=== PATIENT | male | born 1995 | race Caucasian/White ===

== ENCOUNTER 2017-01-06 03:42 | Inpatient (IN) | payer OTHER ==
[2017-01-06] VITALS (19 sets, daily range): BP systolic 97–127; BP diastolic 43–66
[~2017-01-06] VITALS: Ht 185.4 cm; Wt 77.3 kg
[~2017-01-06 03:42] MED LIST: ALBU0.63 IH; AZIT500T PO; DESM0.2T PO; DIPH25CA79 PO; DIPH28.33 TP; INSU100C SQ; INSU100V; LEVO500T80 PO; RT-ALBUINH IH; SERT50TA PO
[2017-01-06] MEDS ORDERED: NS IV 1000 ML 1,000 ML IV ONE ×2 (04:02→04:57)
--- NOTE | 2017-01-06 04:10 | ED General ---
General Chief Complaint: Abdominal/GI Problems Stated Complaint: VOMITING FLU LIKE SYS POSS HIGH BS Nursing Triage Note: pt ambulated to room. pt complains of vomiting since yesterday morning. pt complains of generalized pain. nausea diarrhea. Source of Information: Patient Exam Limitations: No Limitations History of Present Illness Time Seen by Provider: 03:54 Initial Comments Here with report of nausea, vomiting and diarrhea suggested a morning as well as body aches. Patient is a known diabetic and states his blood sugars have been over 400. He believes that there is some problem with his insulin pump system. Currently at a basal rate of 1.1 units per hour. Denies fever but does have chills. He has been tolerating a little bit of Sprite 0 but not much else. Does have history of DKA. Timing/Duration: 1-2 Days Severity: Moderate Associated Systoms: No Chest Pain, No Cough, Fever/Chills, Nausea/Vomiting, No Shortness of Air, No Weakness Allergies and Home Medications Allergies Coded Allergies: No Known Drug Allergies (Unverified , 03/30/11) Home Medications Albuterol Sulfate 6.7 Gm Hfa.aer.ad, 1 PUFF IH BID, #1 NEEDED FOR COUGH Prescribed by: QUANG WOLF on 03/22/16 1058 Azithromycin 500 Mg Tablet, 250 MG PO DAILY, #3 Prescribed by: QUANG WOLF on 03/22/16 1100 Insulin Lispro 100 Unit/1 Ml Vial, PER INSULIN PUMP, (Reported) LAST FILLED 11/17/15 #70 ML FOR 90 DAYS SUPPLY Levofloxacin 500 Mg Tablet, 500 MG PO DAILY, #5 Prescribed by: TERRANCE DILLON on 03/22/16 0848 Constitutional: see HPI, chills, No fever EENTM: no symptoms reported Respiratory: no symptoms reported Cardiovascular: no symptoms reported Gastrointestinal: No abdominal pain, diarrhea, nausea, vomiting Genitourinary: No dysuria, No pain Musculoskeletal: see HPI, joint pain, muscle pain Skin: no symptoms reported Psychiatric/Neurological: No Symptoms Reported All Other Systems Reviewed Negative Unless Noted: Yes Past Iqsdqfi-Lzupgb-Xafawt Hx Patient Social History Alcohol Use: Rarely Uses Recreational Drug Use: Yes Drug of Choice: pot Smoking Status: Current Everyday Smoker 2nd Hand Smoke Exposure: Yes Recent Foreign Travel: No Contact w/Someone Who Travel: No Recent Infectious Disease Expo: No Recent Hopitalizations: Yes (December) Ebola Symptoms: Denies Symptoms Listed Immunizations Up To Date Tetanus Booster (TDap): Unknown PED Vaccines UTD: No Seasonal Allergies Seasonal Allergies: Yes Surgeries HX Surgeries: Yes (urethral stretch) Respiratory Hx Respiratory Disorders: No Cardiovascular Hx Cardiac Disorders: No Neurological Hx Neurological Disorders: No Reproductive System Hx Reproductive Disorders: No Sexually Transmitted Disease: No Genitourinary Hx Genitourinary Disorders: Yes ("BEDWETTER") Gastrointestinal Hx Gastrointestinal Disorders: No Musculoskeletal Hx Musculoskeletal Disorders: No Endocrine Hx Endocrine Disorders: Yes Endocrine Disorders: Diabetes, Insulin dep HEENT HX ENT Disorders: No Cancer Hx Cancer: No Psychosocial Hx Psychiatric Problems: Yes Behavioral Health Disorders: Anxiety, Depression Integumentary HX Skin/Integumentary Disorder: No Blood Transfusions Hx Blood Disorders: No Adverse Reaction to a Blood Tr: No Reviewed Nursing Assessment Reviewed/Agree w Nursing PMH: Yes Family Medical History Significant Family History: No Pertinent Family Hx Family Medial History: Patient reports no known family medical history. Physical Exam Vital Signs Vital Sign - Last 12Hours 01/06/17 03:53 Temp 98.3 Pulse 107 Resp 20 B/P (MAP) 139/68 Pulse Ox 100 O2 Delivery Room Air Capillary Refill : General Appearance: No Apparent Distress, WD/WN HEENT: PERRL/EOMI, Pharynx Normal Neck: Non Tender, Supple Respiratory: Lungs Clear, Normal Breath Sounds Cardiovascular: Regular Rate, Rhythm, No Murmur Gastrointestinal: Non Tender, Soft Back: Normal Inspection, No CVA Tenderness, No Vertebral Tenderness Extremity: Non Tender, No Calf Tenderness Neurologic/Psychiatric: Alert, Oriented x3 Skin: Normal Color, Warm/Dry Progress/Results/Core Measures Results/Orders Lab Results Laboratory Tests Test 01/06/17 04:12 01/06/17 04:14 Range/Units White Blood Count 39.5 *H 4.3-11.0 10^3/uL Red Blood Count 5.24 4.35-5.85 10^6/uL Hemoglobin 16.3 13.3-17.7 G/DL Hematocrit 47 40-54 % Mean Corpuscular Volume 89 80-99 FL Mean Corpuscular Hemoglobin 31 25-34 PG Mean Corpuscular Hemoglobin Concent 35 32-36 G/DL Red Cell Distribution Width 12.7 10.0-14.5 % Platelet Count 282 130-400 10^3/uL Mean Platelet Volume 11.3 H 7.4-10.4 FL Neutrophils (%) (Auto) 87 H 42-75 % Lymphocytes (%) (Auto) 7 L 12-44 % Monocytes (%) (Auto) 7 0-12 % Eosinophils (%) (Auto) 0 0-10 % Basophils (%) (Auto) 0 0-10 % Neutrophils # (Auto) 34.2 H 1.8-7.8 X 10^3 Lymphocytes # (Auto) 2.6 1.0-4.0 X 10^3 Monocytes # (Auto) 2.6 H 0.0-1.0 X 10^3 Eosinophils # (Auto) 0.0 0.0-0.3 10^3/uL Basophils # (Auto) 0.1 0.0-0.1 10^3/uL Neutrophils % (Manual) 80 % Lymphocytes % (Manual) 3 % Monocytes % (Manual) 3 % Band Neutrophils 14 % Blood Morphology Comment NORMAL Sodium Level 132 L 135-145 MMOL/L Potassium Level 4.9 3.6-5.0 MMOL/L Chloride Level 94 L 98-107 MMOL/L Carbon Dioxide Level 6 *L 21-32 MMOL/L Anion Gap 32 H 5-14 MMOL/L Blood Urea Nitrogen 23 H 7-18 MG/DL Creatinine 1.68 H 0.60-1.30 MG/DL Estimat Glomerular Filtration Rate 53 BUN/Creatinine Ratio 14 Glucose Level 660 *H 70-105 MG/DL Calcium Level 9.5 8.5-10.1 MG/DL Phosphorus Level 8.0 H 2.3-4.7 MG/DL Magnesium Level 2.0 1.8-2.4 MG/DL Total Bilirubin 0.7 0.1-1.0 MG/DL Aspartate Amino Transf (AST/SGOT) 28 5-34 U/L Alanine Aminotransferase (ALT/SGPT) 31 0-55 U/L Alkaline Phosphatase 110 40-136 U/L Total Protein 8.3 H 6.4-8.2 GM/DL Albumin 4.8 H 3.2-4.5 GM/DL Glucometer 559 *H 70-110 MG/DL My Orders Orders - GAVI JEAN MD Arterial Blood Gas (01/06/17 04:02) Cbc With Automated Diff (01/06/17 04:02) Comprehensive Metabolic Panel (01/06/17 04:02) Magnesium (01/06/17 04:02) Ua Culture If Indicated (01/06/17 04:02) Phosphorus (01/06/17 04:02) Accucheck Stat ONCE (01/06/17 04:02) Saline Lock/Iv-Start (01/06/17 04:02) Ns Iv 1000 Ml (Sodium Chloride 0.9%) (01/06/17 04:02) Insulin (Regular) Human (Humulin R (Per (01/06/17 04:16) Manual Differential (01/06/17 04:12) Ns Iv 1000 Ml (Sodium Chloride 0.9%) (01/06/17 04:57) Medications Given in ED Current Medications Medications Dose Ordered Sig/Bhavin Route Start Time Stop Time Status Last Admin Dose Admin Sodium Chloride 1,000 ml @ 0 mls/hr Q0M ONCE IV 01/06/17 04:02 01/06/17 04:05 DC 01/06/17 04:24 1,000 MLS/HR Sodium Chloride 1,000 ml @ 0 mls/hr Q0M ONCE IV 01/06/17 04:57 01/06/17 04:58 DC 01/06/17 05:08 1,000 MLS/HR Vital Signs/I&O Vital Sign - Last 12Hours 01/06/17 01/06/17 03:53 03:53 Temp 98.3 98.3 Pulse 107 107 Resp 20 20 B/P (MAP) 139/68 139/68 Pulse Ox 100 O2 Delivery Room Air Room Air Progress Note : Progress Note Seen and evaluated. IV, labs, UA, normal saline 1 L bolus and finger stick blood sugar ordered. Monitor patient. Patient's blood sugar noted to be over 600 on chemistry. Patient unable to give urine sample. Repeat normal saline 1 L bolus. 0517: CO2 noted to be 6 on the chemistry. Patient still unable to provide urine. We are unable to get ABG after multiple attempts. Patient does have findings consistent with acute concerning for diabetic ketoacidosis. I did discuss the case with Dr. Irma Shultz and she accepts patient for admission, inpatient status. We will initiate diabetic ketoacidosis protocol. Patient did receive 10 units of insulin IV here and we will continue this is a drip in the ICU. Discussed with patient who agrees with plan. Departure Communication Time/Spoke to Admitting Phy: 05:17 Impression Impression: Primary Impression: DKA (diabetic ketoacidoses) Qualified Codes: E10.10 - Type 1 diabetes mellitus with ketoacidosis without coma Additional Impressions: Dehydration Acute renal failure Qualified Codes: N17.9 - Acute kidney failure, unspecified Disposition: ADMITTED INPATIENT Condition: Stable Decision to Admit Reason: Admit from ER (General) Decision to Admit/Date: Jan 06, 2017 Time/Decision to Admit Time: 05:17 Departure-Patient Inst. Referrals: THOMAS BARNES MD (PCP/Family) Primary Care Physician GAVI JEAN MD Jan 06, 2017 04:10
[2017-01-06] MEDS ORDERED: inSUlin (REGULAR) HUMAN 1 UNIT/0.01 ML (CHARGE PER UNIT) IV STA (04:16)
[2017-01-06 04:28] LABS: BASOPHILS # (AUTO) 0.1 10^3/uL (0.0-0.1); BASOPHILS % (AUTO) 0 % (0-10); EOSINOPHILS % (AUTO) 0 % (0-10); LYMPHOCYTES # (AUTO) 2.6 X 10^3 (1.0-4.0); LYMPHOCYTES % (AUTO) 7 % (12-44); MEAN CORPUSCULAR HEMOGLOBIN 31 PG (25-34); MEAN CORPUSCULAR HGB CONC 35 G/DL (32-36); MEAN CORPUSCULAR VOLUME 89 FL (80-99); MEAN PLATELET VOLUME 11.3 FL (7.4-10.4); MONOCYTES # (AUTO) 2.6 X 10^3 (0.0-1.0); MONOCYTES % (AUTO) 7 % (0-12); NEUTROPHILS # (AUTO) 34.2 X 10^3 (1.8-7.8); NEUTROPHILS % (AUTO) 87 % (42-75); PLATELET COUNT 282 10^3/uL (130-400); RED BLOOD COUNT 5.24 10^6/uL (4.35-5.85); RED CELL DISTRIBUTION WIDTH 12.7 % (10.0-14.5)
[2017-01-06 04:31] LABS: WHITE BLOOD COUNT 39.5 10^3/uL (4.3-11.0)
[2017-01-06 04:49] LABS: BAND NEUTROPHILS 14 %; LYMPHOCYTES % (MANUAL) 3 %; NEUTROPHILS % (MANUAL) 80 %
[2017-01-06 04:51] LABS: ALBUMIN 4.8 GM/DL (3.2-4.5); BILIRUBIN,TOTAL 0.7 MG/DL (0.1-1.0); CALCIUM 9.5 MG/DL (8.5-10.1); CREATININE SERUM 1.68 MG/DL (0.60-1.30); POTASSIUM 4.9 MMOL/L (3.6-5.0); TOTAL PROTEIN 8.3 GM/DL (6.4-8.2)
[2017-01-06 05:35] LABS: BILIRUBIN,URINE NEGATIVE (NEGATIVE); KETONES,URINE 4+ (NEGATIVE); LEUKOCYTE ESTERASE ,URINE NEGATIVE (NEGATIVE); NITRITE,URINE NEGATIVE (NEGATIVE); PH,URINE 5 (5-9); PROTEIN,URINE 2+ (NEGATIVE); UROBILINOGEN,URINE NORMAL (NORMAL)
[2017-01-06 06:02] LABS: ABG BASE EXCESS -19.3 MMOL/L (-2.5-2.5); ABG OXYGEN SATURATION 97 % (94-100); ABG PCO2 22 MMHG (35-45); ABG PO2 96 MMHG (79-93); ABG TCO2 8.3 MMOL/L (21.0-31.0)
[2017-01-06 06:04] LABS: ABG HCO3 8 MMOL/L (23-27); ABG PH 7.17 (7.37-7.43); ALLENS TEST YES-POS
[2017-01-06 06:05] LABS: PATIENT TEMP 99.6
[2017-01-06] MEDS: POTASSIUM CL 10MEQ/50ML IVPB 50 ML IV SCH (06:10)
[2017-01-06] MEDS: KCL 20 MEQ TAB (K-DUR) PO SCH (06:11)
[2017-01-06] MEDS: MAGNESIUM 1 GM/100 ML IVPB 100 ML IV SCH (06:11)
[2017-01-06] MEDS ORDERED: FAMOTIDINE 20MG/2ML IV (PEPCID) IV STA (06:15)
[2017-01-06] MEDS ORDERED: inSUlin (REGULAR) HUMAN 1 UNIT/0.01 ML (CHARGE PER UNIT) ONE (07:06)
[2017-01-06] MEDS ORDERED: 1/2 NS W/KCL 20 MEQ/L 1,000 ML IV ONE (07:06)
[2017-01-06] MEDS ORDERED: SODIUM CHLORIDE (ADD-VANTAGE) 0 ML IV ONE (07:06)
[2017-01-06] MEDS ORDERED: D5 1/2 NS 1000 ML IV SOLUTION 1,000 ML IV SCH (07:15)
[2017-01-06] MEDS ORDERED: ONDANSETRON 4 MG/2 ML (SDV) Z0FRAN IVP PRN (07:15)
[2017-01-06] MEDS ORDERED: inSUlin REGULAR TPN/DRIP ONLY 250 UNITS in NORMAL SALINE 250 ML IV SCH (07:15)
[2017-01-06] MEDS: inSUlin REGULAR TPN/DRIP 250 UNITS/NS 250 ML IV SCH ×2 (07:37)
[2017-01-06] MEDS: 1/2 NS W/KCL 20 MEQ/L 1,000 ML IV SCH ×4 (07:38→23:07)
[2017-01-06] MEDS: D5 1/2 NS W/KCL 20 MEQ/L 1,000 ML IV SCH ×5 (07:38→20:10)
[2017-01-06] MEDS: DEXTROSE 10% IV SOLUTION 1,000 ML IV SCH ×3 (07:38→21:39)
[2017-01-06] MEDS: 1/2 NS IV SOLUTION 1,000 ML IV SCH ×5 (07:39→23:07)
[2017-01-06 07:58] LABS: MEAN PLATELET VOLUME 10.8 FL (7.4-10.4); RED BLOOD COUNT 4.93 10^6/uL (4.35-5.85); RED CELL DISTRIBUTION WIDTH 12.7 % (10.0-14.5)
[2017-01-06 07:59] LABS: WHITE BLOOD COUNT 37.8 10^3/uL (4.3-11.0)
[2017-01-06 08:15] LABS: BLOOD UREA NITROGEN 21 MG/DL (7-18); BUN/CREATININE RATIO 15; CALCIUM 8.7 MG/DL (8.5-10.1); CHLORIDE 100 MMOL/L (98-107); CREATININE SERUM 1.43 MG/DL (0.60-1.30); GFR ESTIMATED > 60; POTASSIUM 5.3 MMOL/L (3.6-5.0); SODIUM 131 MMOL/L (135-145)
[2017-01-06 08:22] LABS: ANION GAP 25 MMOL/L (5-14); CARBON DIOXIDE 6 MMOL/L (21-32)
[2017-01-06 08:23] LABS: GLUCOSE 502 MG/DL (70-105)
[2017-01-06 10:04] LABS: ANION GAP 16 MMOL/L (5-14); BLOOD UREA NITROGEN 18 MG/DL (7-18); BUN/CREATININE RATIO 15; CARBON DIOXIDE 12 MMOL/L (21-32); CHLORIDE 108 MMOL/L (98-107); CREATININE SERUM 1.19 MG/DL (0.60-1.30); GFR ESTIMATED > 60; GLUCOSE 282 MG/DL (70-105); POTASSIUM 5.7 MMOL/L (3.6-5.0); SODIUM 136 MMOL/L (135-145)
--- NOTE | 2017-01-06 10:27 | History & Physicial (CHS) ---
HPI History of Present Illness: 21yo male with a history of poorly controlled Type 1 diabetes presented to ER with profuse N/V/D. Non bilious vomiting. Non bloody, no mucus in diarrhea. No fever. Pt states he has been seeing Helena Mckeon for his diabetes. Goes to [facility] when he is sick. Has been giving himself insulin by report. Of note, this history was abbreviated as he was somnolent but arousable. His nurse did tell me that he had been more awake this morning and was likely tired. Source: patient Exam Limitations: clinical condition Date seen by provider: Jan 06, 2017 Time Seen by Provider: 10:00 Attending Physician Juan Diego Cruz MD PCP Florentino Gaston MD Consult Date of Admission Jan 06, 2017 at 5:20 am Home Medications Home Medications Reviewed patient Home Medication Reconciliation Form Allergies Coded Allergies: No Known Drug Allergies (Unverified , 03/30/11) BZQ-Pnelky-Epykta Hx Patient Social History Alcohol Use: Rarely Uses Recreational Drug Use: Yes Drug of Choice: pot Smoking Status: Current Everyday Smoker 2nd Hand Smoke Exposure: Yes Recent Foreign Travel: No Contact w/other who traveled: No Recent Hopitalizations: Yes (December) Recent Infectious Disease Expo: No Immunizations Up To Date Tetanus Booster (TDap): Unknown Past Medical History Past medical history 1. Diabetes mellitus type I 2. Depression Family Medical History Significant Family History: No Pertinent Family Hx Family History: Patient reports no known family medical history. Review of Systems ([facility]) Time Seen by Provider: 10:00 Constitutional: no symptoms reported All Other Systems Reviewed Negative Unless Noted: Yes (Negative excepted noted.) Reviewed Test Results Reviewed Test Results Lab Laboratory Tests Test 01/06/17 04:12 01/06/17 04:14 01/06/17 05:25 01/06/17 05:26 Range/Units White Blood Count 39.5 *H 4.3-11.0 10^3/uL Red Blood Count 5.24 4.35-5.85 10^6/uL Hemoglobin 16.3 13.3-17.7 G/DL Hematocrit 47 40-54 % Mean Corpuscular Volume 89 80-99 FL Mean Corpuscular Hemoglobin 31 25-34 PG Mean Corpuscular Hemoglobin Concent 35 32-36 G/DL Red Cell Distribution Width 12.7 10.0-14.5 % Platelet Count 282 130-400 10^3/uL Mean Platelet Volume 11.3 H 7.4-10.4 FL Neutrophils (%) (Auto) 87 H 42-75 % Lymphocytes (%) (Auto) 7 L 12-44 % Monocytes (%) (Auto) 7 0-12 % Eosinophils (%) (Auto) 0 0-10 % Basophils (%) (Auto) 0 0-10 % Neutrophils # (Auto) 34.2 H 1.8-7.8 X 10^3 Lymphocytes # (Auto) 2.6 1.0-4.0 X 10^3 Monocytes # (Auto) 2.6 H 0.0-1.0 X 10^3 Eosinophils # (Auto) 0.0 0.0-0.3 10^3/uL Basophils # (Auto) 0.1 0.0-0.1 10^3/uL Neutrophils % (Manual) 80 % Lymphocytes % (Manual) 3 % Monocytes % (Manual) 3 % Band Neutrophils 14 % Blood Morphology Comment NORMAL Sodium Level 132 L 135-145 MMOL/L Potassium Level 4.9 3.6-5.0 MMOL/L Chloride Level 94 L 98-107 MMOL/L Carbon Dioxide Level 6 *L 21-32 MMOL/L Anion Gap 32 H 5-14 MMOL/L Blood Urea Nitrogen 23 H 7-18 MG/DL Creatinine 1.68 H 0.60-1.30 MG/DL Estimat Glomerular Filtration Rate 53 BUN/Creatinine Ratio 14 Glucose Level 660 *H 70-105 MG/DL Hemoglobin A1c 9.3 H 4.5-6.2 % Calcium Level 9.5 8.5-10.1 MG/DL Phosphorus Level 8.0 H 2.3-4.7 MG/DL Magnesium Level 2.0 1.8-2.4 MG/DL Total Bilirubin 0.7 0.1-1.0 MG/DL Aspartate Amino Transf (AST/SGOT) 28 5-34 U/L Alanine Aminotransferase (ALT/SGPT) 31 0-55 U/L Alkaline Phosphatase 110 40-136 U/L Total Protein 8.3 H 6.4-8.2 GM/DL Albumin 4.8 H 3.2-4.5 GM/DL Glucometer 559 *H 457 *H 70-110 MG/DL Urine Color YELLOW Urine Clarity CLEAR Urine pH 5 5-9 Urine Specific [place] 1.020 1.016-1.022 Urine Protein 2+ H NEGATIVE Urine Glucose (UA) 4+ H NEGATIVE Urine Ketones 4+ H NEGATIVE Urine Nitrite NEGATIVE NEGATIVE Urine Bilirubin NEGATIVE NEGATIVE Urine Urobilinogen NORMAL NORMAL MG/DL Urine Leukocyte Esterase NEGATIVE NEGATIVE Urine RBC (Auto) NEGATIVE NEGATIVE Urine RBC NONE /HPF Urine WBC NONE /HPF Urine Squamous Epithelial Cells 2-5 /HPF Urine Crystals NONE /LPF Urine Bacteria NEGATIVE /HPF Urine Casts NONE /LPF Urine Mucus NEGATIVE /LPF Urine Culture Indicated NO Test 01/06/17 05:50 01/06/17 07:04 01/06/17 07:50 01/06/17 08:40 Range/Units Blood Gas Puncture Site RIGHT RADIAL Blood Gas Patient Temperature 99.6 Arterial Blood pH 7.17 *L 7.37-7.43 Arterial Blood Partial Pressure CO2 22 L 35-45 MMHG Arterial Blood Partial Pressure O2 96 H 79-93 MMHG Arterial Blood HCO3 8 *L 23-27 MMOL/L Arterial Blood Total CO2 8.3 L 21.0-31.0 MMOL/L Arterial Blood Oxygen Saturation 97 94-100 % Arterial Blood Base Excess -19.3 L -2.5-2.5 MMOL/L Alfredo Test YES-POS Blood Gas Ventilator Setting NO Blood Gas Inspired Oxygen ROOM AIR Glucometer 525 *H 478 *H 70-110 MG/DL White Blood Count 37.8 *H 4.3-11.0 10^3/uL Red Blood Count 4.93 4.35-5.85 10^6/uL Hemoglobin 15.2 13.3-17.7 G/DL Hematocrit 43 40-54 % Mean Corpuscular Volume 88 80-99 FL Mean Corpuscular Hemoglobin 31 25-34 PG Mean Corpuscular Hemoglobin Concent 35 32-36 G/DL Red Cell Distribution Width 12.7 10.0-14.5 % Platelet Count 194 130-400 10^3/uL Mean Platelet Volume 10.8 H 7.4-10.4 FL Sodium Level 131 L 135-145 MMOL/L Potassium Level 5.3 H 3.6-5.0 MMOL/L Chloride Level 100 98-107 MMOL/L Carbon Dioxide Level 6 *L 21-32 MMOL/L Anion Gap 25 H 5-14 MMOL/L Blood Urea Nitrogen 21 H 7-18 MG/DL Creatinine 1.43 H 0.60-1.30 MG/DL Estimat Glomerular Filtration Rate > 60 BUN/Creatinine Ratio 15 Glucose Level 502 *H 70-105 MG/DL Calcium Level 8.7 8.5-10.1 MG/DL Test 01/06/17 09:26 01/06/17 09:45 01/06/17 10:17 01/06/17 11:24 Range/Units Glucometer 411 *H 351 H 322 H 70-110 MG/DL Sodium Level 136 135-145 MMOL/L Potassium Level 5.7 H 3.6-5.0 MMOL/L Chloride Level 108 H 98-107 MMOL/L Carbon Dioxide Level 12 L 21-32 MMOL/L Anion Gap 16 H 5-14 MMOL/L Blood Urea Nitrogen 18 7-18 MG/DL Creatinine 1.19 0.60-1.30 MG/DL Estimat Glomerular Filtration Rate > 60 BUN/Creatinine Ratio 15 Glucose Level 282 H 70-105 MG/DL Calcium Level 9.0 8.5-10.1 MG/DL Test 01/06/17 11:40 Range/Units Physical Exam-([facility]) Physical Exam Vital Signs VS - Last 72 Hours, by Label 01/06/17 01/06/17 01/06/17 01/06/17 03:53 03:53 06:41 07:05 Temp 98.3 98.3 98.3 Pulse 107 107 107 115 Resp 20 20 20 26 B/P (MAP) 139/68 139/68 109/49 Pulse Ox 100 100 97 O2 Delivery Room Air Room Air Room Air Room Air 01/06/17 01/06/17 01/06/17 01/06/17 07:08 07:44 08:00 08:00 Temp 99.6 Pulse 115 113 111 Resp 27 28 B/P (MAP) 113/43 117/52 Pulse Ox 96 97 O2 Delivery Room Air Room Air Room Air 01/06/17 01/06/17 09:00 11:28 Temp 99.9 Pulse 112 122 Resp 25 24 B/P (MAP) 117/60 113/55 Pulse Ox 96 98 O2 Delivery Room Air Room Air Capillary Refill : Less Than 3 Seconds General Appearance: WD/WN, no apparent distress HEENT: PERRL/EOMI, pharynx normal, other (dry mucosal membranes) Neck: non-tender, full range of motion, supple Respiratory: chest non-tender, lungs clear, normal breath sounds, no respiratory distress, no accessory muscle use, other (tachypenic) Cardiovascular: regular rate, rhythm, no edema, no gallop, no JVD, no murmur, tachycardia Gastrointestinal: normal bowel sounds, non tender, soft, no organomegaly Extremities: normal range of motion, non-tender, normal inspection, no pedal edema, no calf tenderness, normal capillary refill 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 BS coming down nicely. will continue until gap closes, then transition to subcut insulin. this will likely be tonight. will need continued fluid resuscitation through the night as well. VIRAL GASTROENTERITIS ADM: likely precipitating factor for DKA. phenergan for nausea. clear fluid diet for now until BS are controlled and his nausea is much improved. LEUKOCYTOSIS ADM: due to moderate to severe DKA, will observe without abx for now as I have no clear indication of a bacterial infection. suspect stress response. rechk in AM. ACUTE KIDNEY INJURY 2/2 DEHYDRATION ELECTROLYTE IMBALANCES ADM: Creatinine responding nicely. Continue q2h BMP. expect hyperkalemia to resolve as we rehydrate and correct the acidosis. DVT Proph: expect patient will be up and walking around later today as he is feeling better. SCDs til then. Diagnosis/Problems: Copy Copies To 1: JUAN DIEGO CRUZ MD, JULIE A MD Jan 06, 2017 10:27
[2017-01-06 12:03] LABS: ANION GAP 16 MMOL/L (5-14); BLOOD UREA NITROGEN 20 MG/DL (7-18); BUN/CREATININE RATIO 15; CALCIUM 8.7 MG/DL (8.5-10.1); CARBON DIOXIDE 10 MMOL/L (21-32); CHLORIDE 107 MMOL/L (98-107); CREATININE SERUM 1.32 MG/DL (0.60-1.30); GFR ESTIMATED > 60; GLUCOSE 271 MG/DL (70-105); POTASSIUM 4.4 MMOL/L (3.6-5.0); SODIUM 133 MMOL/L (135-145)
[2017-01-06 16:31] LABS: ANION GAP 10 MMOL/L (5-14); BLOOD UREA NITROGEN 17 MG/DL (7-18); BUN/CREATININE RATIO 14; CALCIUM 8.7 MG/DL (8.5-10.1); CARBON DIOXIDE 16 MMOL/L (21-32); CHLORIDE 107 MMOL/L (98-107); CREATININE SERUM 1.23 MG/DL (0.60-1.30); GFR ESTIMATED > 60; GLUCOSE 258 MG/DL (70-105); POTASSIUM 4.2 MMOL/L (3.6-5.0); SODIUM 133 MMOL/L (135-145)
[2017-01-06 23:58] LABS: ANION GAP 14 MMOL/L (5-14); BLOOD UREA NITROGEN 13 MG/DL (7-18); BUN/CREATININE RATIO 12; CALCIUM 8.8 MG/DL (8.5-10.1); CARBON DIOXIDE 13 MMOL/L (21-32); CHLORIDE 109 MMOL/L (98-107); CREATININE SERUM 1.08 MG/DL (0.60-1.30); GFR ESTIMATED > 60; GLUCOSE 222 MG/DL (70-105); POTASSIUM 4.2 MMOL/L (3.6-5.0); SODIUM 136 MMOL/L (135-145)
[2017-01-07] VITALS (23 sets, daily range): BP systolic 92–124; BP diastolic 37–93
[2017-01-07] MEDS: D5 1/2 NS W/KCL 20 MEQ/L 1,000 ML IV SCH ×6 (03:19→22:55)
[2017-01-07] MEDS: 1/2 NS IV SOLUTION 1,000 ML IV SCH ×6 (03:19→23:12)
[2017-01-07] MEDS: 1/2 NS W/KCL 20 MEQ/L 1,000 ML IV SCH ×6 (03:19→18:49)
[2017-01-07 03:54] LABS: BASOPHILS % (AUTO) 0 % (0-10); EOSINOPHILS % (AUTO) 0 % (0-10); LYMPHOCYTES # (AUTO) 3.4 X 10^3 (1.0-4.0); LYMPHOCYTES % (AUTO) 14 % (12-44); MEAN CORPUSCULAR HEMOGLOBIN 31 PG (25-34); MEAN CORPUSCULAR HGB CONC 36 G/DL (32-36); MEAN CORPUSCULAR VOLUME 86 FL (80-99); MEAN PLATELET VOLUME 10.5 FL (7.4-10.4); MONOCYTES # (AUTO) 2.1 X 10^3 (0.0-1.0); MONOCYTES % (AUTO) 9 % (0-12); NEUTROPHILS # (AUTO) 18.3 X 10^3 (1.8-7.8); NEUTROPHILS % (AUTO) 77 % (42-75); PLATELET COUNT 186 10^3/uL (130-400); RED BLOOD COUNT 4.67 10^6/uL (4.35-5.85); RED CELL DISTRIBUTION WIDTH 12.5 % (10.0-14.5); WHITE BLOOD COUNT 23.9 10^3/uL (4.3-11.0)
[2017-01-07] MEDS ORDERED: DEXTROSE 50% 50 ML (IMS) SYR IV ONE (04:00)
[2017-01-07 04:11] LABS: ANION GAP 11 MMOL/L (5-14); BLOOD UREA NITROGEN 12 MG/DL (7-18); BUN/CREATININE RATIO 13; CALCIUM 9.2 MG/DL (8.5-10.1); CARBON DIOXIDE 17 MMOL/L (21-32); CHLORIDE 111 MMOL/L (98-107); CREATININE SERUM 0.94 MG/DL (0.60-1.30); GFR ESTIMATED > 60; MAGNESIUM 1.9 MG/DL (1.8-2.4); PHOSPHORUS 1.5 MG/DL (2.3-4.7); POTASSIUM 3.3 MMOL/L (3.6-5.0); SODIUM 139 MMOL/L (135-145)
[2017-01-07 04:14] LABS: GLUCOSE 52 MG/DL (70-105)
[2017-01-07] MEDS: MAGNESIUM 1 GM/100 ML IVPB 100 ML IV SCH (06:02)
[2017-01-07] MEDS: POTASSIUM CL 10MEQ/50ML IVPB 50 ML IV SCH (06:02)
[2017-01-07] MEDS: KCL 20 MEQ TAB (K-DUR) PO SCH (06:14)
[2017-01-07] MEDS ORDERED: KCL 20 MEQ TAB (K-DUR) PO ONE ×2 (06:15→08:15)
[2017-01-07] MEDS ORDERED: SODIUM PHOSPHATE IV NR ×2 (06:56)
[2017-01-07] MEDS ORDERED: SODIUM CHLORIDE IV NR ×2 (06:56)
--- NOTE | 2017-01-07 08:37 | Diagnostic Imaging Report ---
INDICATION: Dyspnea COMPARISON: 03/20/2016 FINDINGS: Single frontal view of the chest demonstrates normal heart size and pulmonary vascularity. The lungs are well aerated and clear. No large pleural effusion or pneumothorax is seen. The visualized osseous structures show no acute abnormalities. IMPRESSION: 1. No acute cardiopulmonary process. Dictated by: Dictated on workstation # [id number]
[2017-01-07] MEDS: inSUlin REGULAR TPN/DRIP 250 UNITS/NS 250 ML IV SCH ×2 (09:16)
[2017-01-07 10:14] LABS: ANION GAP 12 MMOL/L (5-14); BLOOD UREA NITROGEN 10 MG/DL (7-18); BUN/CREATININE RATIO 11; CALCIUM 8.9 MG/DL (8.5-10.1); CARBON DIOXIDE 18 MMOL/L (21-32); CHLORIDE 108 MMOL/L (98-107); CREATININE SERUM 0.91 MG/DL (0.60-1.30); GFR ESTIMATED > 60; GLUCOSE 292 MG/DL (70-105); POTASSIUM 4.7 MMOL/L (3.6-5.0); SODIUM 138 MMOL/L (135-145)
--- NOTE | 2017-01-07 10:57 | Progress Note (SOAP) ---
MAGALY IVEY MED STUDENT 01/07/17 1057: Subjective Subjective/Events-last exam Patient presents today in no acute distress. Patient is currently on IV fluids, IV insulin and receiving potassium replacement. Patient will resume solid foods this morning. Patient uses an insulin pump at home. His basal level is 1.6 units /hour and he states that his preprandial bolus amount is typically between 30- 60 units. He states that he does not usually check his blood sugar before administering the preprandial bolus and estimates how much insulin to administer based on his portion size. Patient states that "on paper" he checks his blood pressure 3 times a day but later states that he often loses his blood sugar kits. Patient states that he has not been eating much lately due to lack of appetite. Patient states he had a seizure 2 nights ago where "he lost all senses except for feeling" and thinks it is because of low blood sugar. Review of Systems Date Seen by Provider: Jan 07, 2017 Time Seen by Provider: 09:00 Objective Exam Last Set of Vital Signs Vital Signs Date Time Temp Pulse Resp B/P (MAP) Pulse Ox O2 Delivery O2 Flow Rate FiO2 01/07/17 06:00 75 18 107/59 97 Room Air 01/07/17 04:00 98.1 Capillary Refill : Less Than 3 SecondsLess Than 3 Seconds I&O Bad tableGeneral: Alert, Oriented X3, Cooperative, No Acute Distress Lungs: Clear to Auscultation, Normal Air Movement Heart: Regular Rate, Normal S1, Normal S2, No Murmurs Abdomen: Normal Bowel Sounds Neuro: Normal Speech, Cranial Nerves 3-12 NL Results/Procedures Lab Laboratory Tests 01/06/17 11:24: Glucometer 322H 01/06/17 11:40: Sodium Level 133L, Potassium Level 4.4, Chloride Level 107, Carbon Dioxide Level 10L, Anion Gap 16H, Blood Urea Nitrogen 20H, Creatinine 1.32H, Estimat Glomerular Filtration Rate > 60, BUN/Creatinine Ratio 15, Glucose Level 271H, Calcium Level 8.7 01/06/17 12:14: Glucometer 224H 01/06/17 13:20: Glucometer 254H 01/06/17 14:44: Glucometer 271H 01/06/17 15:55: Sodium Level 133L, Potassium Level 4.2, Chloride Level 107, Carbon Dioxide Level 16L, Anion Gap 10, Blood Urea Nitrogen 17, Creatinine 1.23, Estimat Glomerular Filtration Rate > 60, BUN/Creatinine Ratio 14, Glucose Level 258H, Calcium Level 8.7 01/06/17 16:00: Glucometer 228H 01/06/17 17:01: Glucometer 223H 01/06/17 18:00: Glucometer 193H 01/06/17 19:35: Glucometer 134H 01/06/17 20:04: Glucometer 181H 01/06/17 21:00: Glucometer 96 01/06/17 21:32: Glucometer 93 01/06/17 22:04: Glucometer 119H 01/06/17 23:03: Glucometer 190H 01/06/17 23:33: Sodium Level 136, Potassium Level 4.2, Chloride Level 109H, Carbon Dioxide Level 13L, Anion Gap 14, Blood Urea Nitrogen 13, Creatinine 1.08, Estimat Glomerular Filtration Rate > 60, BUN/Creatinine Ratio 12, Glucose Level 222H, Calcium Level 8.8 01/07/17 00:01: Glucometer 178H 01/07/17 01:05: Glucometer 171H 01/07/17 02:02: Glucometer 159H 01/07/17 03:03: Glucometer 67L 01/07/17 03:33: Glucometer 47*L 01/07/17 03:45: White Blood Count 23.9H, Red Blood Count 4.67, Hemoglobin 14.4, Hematocrit 40, Mean Corpuscular Volume 86, Mean Corpuscular Hemoglobin 31, Mean Corpuscular Hemoglobin Concent 36, Red Cell Distribution Width 12.5, Platelet Count 186, Mean Platelet Volume 10.5H, Neutrophils (%) (Auto) 77H, Lymphocytes (%) (Auto) 14, Monocytes (%) (Auto) 9, Eosinophils (%) (Auto) 0, Basophils (%) (Auto) 0, Neutrophils # (Auto) 18.3H, Lymphocytes # (Auto) 3.4, Monocytes # (Auto) 2.1H, Eosinophils # (Auto) 0.0, Basophils # (Auto) 0.0, Sodium Level 139, Potassium Level 3.3L, Chloride Level 111H, Carbon Dioxide Level 17L, Anion Gap 11, Blood Urea Nitrogen 12, Creatinine 0.94, Estimat Glomerular Filtration Rate > 60, BUN/ Creatinine Ratio 13, Glucose Level 52*L, Calcium Level 9.2, Phosphorus Level 1.5L, Magnesium Level 1.9 01/07/17 03:48: Glucometer 66L 01/07/17 04:59: Glucometer 273H 01/07/17 06:05: Glucometer 152H 01/07/17 07:01: Glucometer 111H 01/07/17 07:43: Glucometer 113H 01/07/17 08:25: Glucometer 189H 01/07/17 09:23: Glucometer 199H 01/07/17 09:49: Sodium Level 138, Potassium Level 4.7, Chloride Level 108H, Carbon Dioxide Level 18L, Anion Gap 12, Blood Urea Nitrogen 10, Creatinine 0.91, Estimat Glomerular Filtration Rate > 60, BUN/Creatinine Ratio 11, Glucose Level 292H, Calcium Level 8.9 01/07/17 10:37: Glucometer 329H Assessment/Plan Assessment/Plan Admission Dx SEE BELOW Plan DIABETIC KETOACIDOSIS POORLY CONTROLLED DIABETES MELLITUS TYPE 1 01/06 ADM: on DKA protocol, has received 2L and is now on 250mL per hour. BS coming down nicely. will continue until gap closes, then transition to subcut insulin. this will likely be tonight. will need continued fluid resuscitation through the night as well. 01/07 Switched to subcutaneous insulin around 0930, administer the insulin how patient states he was administering at home to determine if management is controlled, sliding scale insulin as needed; continue potassium replacement; continue checking blood glucose for 4 hours after transitioning to subcutaneous insulin (stop checking around 1330); dc IV fluids; consult diabetes educators VIRAL GASTROENTERITIS ADM: likely precipitating factor for DKA. phenergan for nausea. clear fluid diet for now until BS are controlled and his nausea is much improved. 01/07 dc fluids, nausea resolved LEUKOCYTOSIS ADM: due to moderate to severe DKA, will observe without abx for now as I have no clear indication of a bacterial infection. suspect stress response. rechk in AM. 01/07 WBC continue to decrease, monitor ACUTE KIDNEY INJURY 2/2 DEHYDRATION ELECTROLYTE IMBALANCES ADM: Creatinine responding nicely. Continue q2h BMP. expect hyperkalemia to resolve as we rehydrate and correct the acidosis. 01/07 resolved, Creatinine, BUN, and GFR normal DVT Proph: expect patient will be up and walking around later today as he is feeling better. SCDs til then. 01/07 continue SCDs Diagnosis/Problems: Clinical Quality Measures DVT/VTE Risk/Contraindication: Risk Factor Score Per Nursin RFS Level Per Nursing on Admit: 1=Low/No VTE PPX TIMOTHY SOTO MD 01/07/172118: Objective Exam Neuro: Other (finger to nose pointing normal) Supervisory-Addendum Brief Supervisory Addendum Patient seen and examined with MS3 Magaly Ivey, agree with documentation unless otherwise noted. (Of note, he states he checks his blood sugar "on paper " 3x per day, not blood pressure) Seizure-like activity- discussed that it could be low blood sugar episode versus true seizure, but given his concern and apparent increasing frequency, will check CT of head today. MAGALY IVEY MED STUDENT Jan 07, 2017 10:57 TIMOTHY SOTO MD Jan 07, 2017 21:19
[2017-01-07] MEDS ORDERED: DEXT15CA28 PO (11:17)
[2017-01-07] MEDS ORDERED: CALC300T4 PO (11:17)
--- NOTE | 2017-01-07 11:56 | Diagnostic Imaging Report ---
PROCEDURE: CT head without contrast. TECHNIQUE: Multiple contiguous axial images were obtained through the brain without the use of intravenous contrast. INDICATION: Seizures. Headache. FINDINGS: There is no intracranial hemorrhage, edema, or mass effect. The brain parenchyma and navas/white matter differentiation are preserved. There is no hydrocephalus. No extra-axial fluid collection is seen. The calvarium, paranasal sinuses, and orbits (visualized portions) appear unremarkable. IMPRESSION: Unremarkable exam. Dictated by: Dictated on workstation # [id number]
[2017-01-07] MEDS: DEXTROSE 10% IV SOLUTION 1,000 ML IV SCH ×2 (12:02→23:12)
[2017-01-07 14:41] LABS: ANION GAP 16 MMOL/L (5-14); BLOOD UREA NITROGEN 12 MG/DL (7-18); BUN/CREATININE RATIO 13; CALCIUM 9.4 MG/DL (8.5-10.1); CARBON DIOXIDE 15 MMOL/L (21-32); CHLORIDE 104 MMOL/L (98-107); CREATININE SERUM 0.96 MG/DL (0.60-1.30); GFR ESTIMATED > 60; POTASSIUM 5.2 MMOL/L (3.6-5.0); SODIUM 135 MMOL/L (135-145)
[2017-01-07 14:51] LABS: GLUCOSE 483 MG/DL (70-105)
[2017-01-07] MEDS ORDERED: inSUlin ASPART (NovoLOG) 1 UNIT/0.01 ML (CHARGE PER UNIT) SC SCH (16:00)
[2017-01-07 23:28] LABS: ANION GAP 8 MMOL/L (5-14); BLOOD UREA NITROGEN 9 MG/DL (7-18); BUN/CREATININE RATIO 12; CALCIUM 9.2 MG/DL (8.5-10.1); CARBON DIOXIDE 22 MMOL/L (21-32); CHLORIDE 109 MMOL/L (98-107); CREATININE SERUM 0.78 MG/DL (0.60-1.30); GFR ESTIMATED > 60; GLUCOSE 135 MG/DL (70-105); SODIUM 139 MMOL/L (135-145)
[2017-01-08] VITALS (18 sets, daily range): BP systolic 95–136; BP diastolic 54–91
[2017-01-08] MEDS: D5 1/2 NS W/KCL 20 MEQ/L 1,000 ML IV SCH ×6 (02:55→23:12)
[2017-01-08] MEDS: 1/2 NS W/KCL 20 MEQ/L 1,000 ML IV SCH ×6 (03:12→23:12)
[2017-01-08] MEDS: 1/2 NS IV SOLUTION 1,000 ML IV SCH ×6 (03:12→23:12)
[2017-01-08 04:16] LABS: BASOPHILS % (AUTO) 0 % (0-10); EOSINOPHILS # (AUTO) 0.1 10^3/uL (0.0-0.3); EOSINOPHILS % (AUTO) 1 % (0-10); LYMPHOCYTES # (AUTO) 3.3 X 10^3 (1.0-4.0); LYMPHOCYTES % (AUTO) 37 % (12-44); MEAN CORPUSCULAR HEMOGLOBIN 31 PG (25-34); MEAN CORPUSCULAR HGB CONC 35 G/DL (32-36); MEAN CORPUSCULAR VOLUME 88 FL (80-99); MEAN PLATELET VOLUME 10.7 FL (7.4-10.4); MONOCYTES % (AUTO) 11 % (0-12); NEUTROPHILS # (AUTO) 4.7 X 10^3 (1.8-7.8); NEUTROPHILS % (AUTO) 52 % (42-75); PLATELET COUNT 147 10^3/uL (130-400); RED BLOOD COUNT 4.52 10^6/uL (4.35-5.85); RED CELL DISTRIBUTION WIDTH 12.7 % (10.0-14.5); WHITE BLOOD COUNT 9.1 10^3/uL (4.3-11.0)
[2017-01-08 04:41] LABS: ANION GAP 9 MMOL/L (5-14); BLOOD UREA NITROGEN 7 MG/DL (7-18); BUN/CREATININE RATIO 9; CALCIUM 9.2 MG/DL (8.5-10.1); CARBON DIOXIDE 22 MMOL/L (21-32); CHLORIDE 110 MMOL/L (98-107); CREATININE SERUM 0.75 MG/DL (0.60-1.30); GFR ESTIMATED > 60; GLUCOSE 175 MG/DL (70-105); MAGNESIUM 1.7 MG/DL (1.8-2.4); PHOSPHORUS 3.4 MG/DL (2.3-4.7); POTASSIUM 4.4 MMOL/L (3.6-5.0); SODIUM 141 MMOL/L (135-145)
[2017-01-08] MEDS: KCL 20 MEQ TAB (K-DUR) PO SCH (05:13)
[2017-01-08] MEDS: POTASSIUM CL 10MEQ/50ML IVPB 50 ML IV SCH (05:13)
[2017-01-08] MEDS: MAGNESIUM 1 GM/100 ML IVPB 100 ML IV SCH ×3 (05:14→06:21)
--- NOTE | 2017-01-08 06:20 | Progress Note (SOAP) ---
MAGALY IVEY MED STUDENT 01/08/17 6:20am: Subjective Subjective/Events-last exam Patient presents today in no acute distress. Patient reports that he has not experienced any nausea, vomiting, or diarrhea in the past 24 hours. Patient states he is having no difficulty eating and drinking. Patient states that his appetite is typically pretty poor but patient states that it has improved since admission. Patient states has has had intermittent headaches over the past 24 hours but states the pain is very moderate and rates the pain at a 3/10. Patient denies seizure activity in the past 24 hours. Patient denies SOB, chest pain. Review of Systems Date Seen by Provider: Jan 08, 2017 Time Seen by Provider: 05:45 HEENT: Head Aches Objective Exam Last Set of Vital Signs Vital Signs Date Time Temp Pulse Resp B/P (MAP) Pulse Ox O2 Delivery O2 Flow Rate FiO2 01/08/17 06:00 64 121/77 99 Room Air 01/08/17 04:00 98.8 01/07/17 23:00 29 Capillary Refill : Less Than 3 SecondsLess Than 3 Seconds I&O Intake and Output 01/08/17 00:00 Intake Total 5266.6667 ml Output Total 5850 ml Balance -583.3333 ml Intake Oral 3160 ml IV Total 2106.6667 ml Output Urine Total 5850 ml General: Alert, Oriented X3, Cooperative Lungs: Clear to Auscultation, Normal Air Movement Heart: Regular Rate, Normal S1, Normal S2, No Murmurs Extremities: No Edema Neuro: Normal Speech Results/Procedures Lab Laboratory Tests 01/07/17 07:01: Glucometer 111H 01/07/17 07:43: Glucometer 113H 01/07/17 08:25: Glucometer 189H 01/07/17 09:23: Glucometer 199H 01/07/17 09:49: Sodium Level 138, Potassium Level 4.7, Chloride Level 108H, Carbon Dioxide Level 18L, Anion Gap 12, Blood Urea Nitrogen 10, Creatinine 0.91, Estimat Glomerular Filtration Rate > 60, BUN/Creatinine Ratio 11, Glucose Level 292H, Calcium Level 8.9 01/07/17 10:37: Glucometer 329H 01/07/17 11:34: Glucometer 400*H 01/07/17 12:37: Glucometer 342H 01/07/17 13:46: Glucometer 369H 01/07/17 14:14: Sodium Level 135, Potassium Level 5.2H, Chloride Level 104, Carbon Dioxide Level 15L, Anion Gap 16H, Blood Urea Nitrogen 12, Creatinine 0.96, Estimat Glomerular Filtration Rate > 60, BUN/Creatinine Ratio 13, Glucose Level 483*H, Calcium Level 9.4 01/07/17 14:38: Glucometer 407*H 01/07/17 16:02: Glucometer 255H 01/07/17 17:09: Glucometer 181H 01/07/17 18:02: Glucometer 111H 01/07/17 18:42: Glucometer 99 01/07/17 19:29: Glucometer 196H 01/07/17 20:55: Glucometer 226H 01/07/17 22:21: Glucometer 158H 01/07/17 22:55: Sodium Level 139, Potassium Level 4.0, Chloride Level 109H, Carbon Dioxide Level 22, Anion Gap 8, Blood Urea Nitrogen 9, Creatinine 0.78, Estimat Glomerular Filtration Rate > 60, BUN/Creatinine Ratio 12, Glucose Level 135H, Calcium Level 9.2 01/07/17 23:02: Glucometer 120H 01/07/17 23:50: Glucometer 155H 01/08/17 01:14: Glucometer 173H 01/08/17 02:08: Glucometer 179H 01/08/17 02:57: Glucometer 138H 01/08/17 03:53: Glucometer 160H 01/08/17 03:54: White Blood Count 9.1, Red Blood Count 4.52, Hemoglobin 13.8, Hematocrit 40, Mean Corpuscular Volume 88, Mean Corpuscular Hemoglobin 31, Mean Corpuscular Hemoglobin Concent 35, Red Cell Distribution Width 12.7, Platelet Count 147, Mean Platelet Volume 10.7H, Neutrophils (%) (Auto) 52, Lymphocytes (%) (Auto) 37 , Monocytes (%) (Auto) 11, Eosinophils (%) (Auto) 1, Basophils (%) (Auto) 0, Neutrophils # (Auto) 4.7, Lymphocytes # (Auto) 3.3, Monocytes # (Auto) 1.0, Eosinophils # (Auto) 0.1, Basophils # (Auto) 0.0, Sodium Level 141, Potassium Level 4.4, Chloride Level 110H, Carbon Dioxide Level 22, Anion Gap 9, Blood Urea Nitrogen 7, Creatinine 0.75, Estimat Glomerular Filtration Rate > 60, BUN/ Creatinine Ratio 9, Glucose Level 175H, Calcium Level 9.2, Phosphorus Level 3.4 , Magnesium Level 1.7L 01/08/17 04:57: Glucometer 227H 01/08/17 05:59: Glucometer 224H Microbiology 01/06/17 MRSA Screen - Final, Complete MRSA not isolated Assessment/Plan Assessment/Plan Admission Dx SEE BELOW Plan DIABETIC KETOACIDOSIS POORLY CONTROLLED DIABETES MELLITUS TYPE 1 01/06 ADM: on DKA protocol, has received 2L and is now on 250mL per hour. BS coming down nicely. will continue until gap closes, then transition to subcut insulin. this will likely be tonight. will need continued fluid resuscitation through the night as well. 01/07 Switched to subcutaneous insulin around 0930, administer the insulin how patient states he was administering at home to determine if management is controlled, sliding scale insulin as needed; continue potassium replacement; continue checking blood glucose for 4 hours after transitioning to subcutaneous insulin (stop checking around 1330); dc IV fluids; consult diabetes educators 01/08 Plan to take patient off of insulin drip today and attempt to control blood sugar with subcutaneous insulin via his insulin pump, will plan to administer basal insulin at a rate of 1.6 units/hour with a scheduled bolus of 12 units per meal (with 60 gram carbohydrate diet, 15 grams of carbs in one serving, 3 units per one serving of carbohydrates) VIRAL GASTROENTERITIS ADM: likely precipitating factor for DKA. phenergan for nausea. clear fluid diet for now until BS are controlled and his nausea is much improved. 01/07 dc fluids, nausea resolved 01/08 resolved LEUKOCYTOSIS ADM: due to moderate to severe DKA, will observe without abx for now as I have no clear indication of a bacterial infection. suspect stress response. rechk in AM. 01/07 WBC continue to decrease, monitor 01/08 WBC decreased to normal range, resolved ACUTE KIDNEY INJURY 2/2 DEHYDRATION ELECTROLYTE IMBALANCES ADM: Creatinine responding nicely. Continue q2h BMP. expect hyperkalemia to resolve as we rehydrate and correct the acidosis. / resolved, Creatinine, BUN, and GFR normal 01/08 resolved DVT Proph: expect patient will be up and walking around later today as he is feeling better. SCDs til then. 01/07 continue SCDs 01/08 continue SCDs Diagnosis/Problems: Diagnosis/Problems: Clinical Quality Measures DVT/VTE Risk/Contraindication: Risk Factor Score Per Nursin RFS Level Per Nursing on Admit: 1=Low/No VTE PPX TIMOTHY SOTO MD 01/08/17 8:19am: Subjective Subjective/Events-last exam Patient states that he normally counts carbs in this fashion- "imagine everything converted to a piece of bread which is 10-12 grams of carbs, so the tortilla is 1 piece of bread and the blueberry muffin is more than 1". He states he inputs the grams of carbs into his pump based on 10-12 grams per "piece of bread" type food as well as his current blood sugar and it calculates his bolus but he does not know what conversion factor it uses for carbohydrates or for correction. He last changed the site/tubing he thinks on Saturday and he does have more supplies to change it at home, but doesn't think anyone can bring them in for him. Objective Results/Procedures Radiology CT head 01/07/2017: Unremarkable Assessment/Plan Assessment/Plan Plan Pump use- anticipate he should be receiving 1 unit of insulin per 5 grams of carbohydrate based on his total 24 hour insulin dose of 79 units yesterday and 1 unit of insulin to decrease blood sugar by 16 mg/dL for correction factor, so mealtime bolus should be around 12 units, will have nursing monitor when he inputs information and document bolus dose that is calculated so we can determine if appropriate Diagnosis/Problems: Supervisory-Addendum Brief Supervisory Addendum Patient seen and examined with MS3 Magaly Ivey, agree with documentation unless otherwise noted. MAGALY IVEY MED STUDENT Jan 08, 2017 6:20 am TIMOTHY SOTO MD Jan 08, 2017 8:19 am
[2017-01-08] MEDS: inSUlin REGULAR TPN/DRIP 250 UNITS/NS 250 ML IV SCH ×2 (07:30)
[2017-01-08 08:32] LABS: ANION GAP 9 MMOL/L (5-14); BLOOD UREA NITROGEN 6 MG/DL (7-18); BUN/CREATININE RATIO 8; CALCIUM 9.1 MG/DL (8.5-10.1); CARBON DIOXIDE 23 MMOL/L (21-32); CHLORIDE 108 MMOL/L (98-107); CREATININE SERUM 0.73 MG/DL (0.60-1.30); GFR ESTIMATED > 60; GLUCOSE 182 MG/DL (70-105); POTASSIUM 3.8 MMOL/L (3.6-5.0); SODIUM 140 MMOL/L (135-145)
[2017-01-08] MEDS: DEXTROSE 10% IV SOLUTION 1,000 ML IV SCH ×2 (09:12→20:56)
[2017-01-08 12:21] LABS: ANION GAP 10 MMOL/L (5-14); BLOOD UREA NITROGEN 8 MG/DL (7-18); BUN/CREATININE RATIO 11; CALCIUM 9.3 MG/DL (8.5-10.1); CARBON DIOXIDE 23 MMOL/L (21-32); CHLORIDE 107 MMOL/L (98-107); CREATININE SERUM 0.76 MG/DL (0.60-1.30); GFR ESTIMATED > 60; GLUCOSE 272 MG/DL (70-105); POTASSIUM 4.1 MMOL/L (3.6-5.0); SODIUM 140 MMOL/L (135-145)
[2017-01-08] MEDS ORDERED: inSUlin (REGULAR) HUMAN 1 UNIT/0.01 ML (CHARGE PER UNIT) IV ONE (14:15)
[2017-01-08] MEDS ORDERED: inSUlin DETERMIR 1 UNIT/0.01 ML (LEVEMIR) CHARGE PER UNIT SQ ONE (14:15)
[2017-01-08] MEDS: inSUlin ASPART (NovoLOG) 1 UNIT/0.01 ML (CHARGE PER UNIT) SC SCH (18:54)
[2017-01-08] MEDS: inSUlin (REGULAR) HUMAN 1 UNIT/0.01 ML (CHARGE PER UNIT) SC SCH ×2 (18:55→21:12)
[2017-01-09] VITALS: BP 116/53
[2017-01-09] MEDS: 1/2 NS IV SOLUTION 1,000 ML IV SCH ×4 (03:57→15:30)
[2017-01-09] MEDS: 1/2 NS W/KCL 20 MEQ/L 1,000 ML IV SCH ×4 (03:58→15:30)
[2017-01-09] MEDS: D5 1/2 NS W/KCL 20 MEQ/L 1,000 ML IV SCH ×4 (03:58→15:31)
[2017-01-09 04:00] VITALS: BP 105/48
[2017-01-09 04:23] LABS: BASOPHILS % (AUTO) 1 % (0-10); EOSINOPHILS # (AUTO) 0.2 10^3/uL (0.0-0.3); EOSINOPHILS % (AUTO) 2 % (0-10); LYMPHOCYTES # (AUTO) 3.4 X 10^3 (1.0-4.0); LYMPHOCYTES % (AUTO) 46 % (12-44); MEAN CORPUSCULAR HEMOGLOBIN 31 PG (25-34); MEAN CORPUSCULAR HGB CONC 35 G/DL (32-36); MEAN CORPUSCULAR VOLUME 88 FL (80-99); MEAN PLATELET VOLUME 10.5 FL (7.4-10.4); MONOCYTES # (AUTO) 0.8 X 10^3 (0.0-1.0); MONOCYTES % (AUTO) 10 % (0-12); NEUTROPHILS # (AUTO) 3.1 X 10^3 (1.8-7.8); NEUTROPHILS % (AUTO) 41 % (42-75); PLATELET COUNT 157 10^3/uL (130-400); RED BLOOD COUNT 4.84 10^6/uL (4.35-5.85); RED CELL DISTRIBUTION WIDTH 12.5 % (10.0-14.5); WHITE BLOOD COUNT 7.4 10^3/uL (4.3-11.0)
[2017-01-09 04:42] LABS: ANION GAP 13 MMOL/L (5-14); BLOOD UREA NITROGEN 12 MG/DL (7-18); BUN/CREATININE RATIO 17; CALCIUM 9.1 MG/DL (8.5-10.1); CARBON DIOXIDE 23 MMOL/L (21-32); CHLORIDE 106 MMOL/L (98-107); CREATININE SERUM 0.71 MG/DL (0.60-1.30); GFR ESTIMATED > 60; GLUCOSE 99 MG/DL (70-105); MAGNESIUM 2.1 MG/DL (1.8-2.4); PHOSPHORUS 5.7 MG/DL (2.3-4.7); POTASSIUM 3.8 MMOL/L (3.6-5.0); SODIUM 142 MMOL/L (135-145)
[2017-01-09] MEDS: inSUlin ASPART (NovoLOG) 1 UNIT/0.01 ML (CHARGE PER UNIT) SC SCH ×2 (06:00→11:40)
[2017-01-09] MEDS: KCL 20 MEQ TAB (K-DUR) PO SCH (06:22)
[2017-01-09] MEDS: POTASSIUM CL 10MEQ/50ML IVPB 50 ML IV SCH (06:22)
[2017-01-09] MEDS: MAGNESIUM 1 GM/100 ML IVPB 100 ML IV SCH (06:22)
[2017-01-09] MEDS: inSUlin (REGULAR) HUMAN 1 UNIT/0.01 ML (CHARGE PER UNIT) SC SCH ×2 (06:23→11:40)
[2017-01-09] MEDS: DEXTROSE 10% IV SOLUTION 1,000 ML IV SCH ×2 (07:38→15:31)
[2017-01-09] MEDS: inSUlin REGULAR TPN/DRIP 250 UNITS/NS 250 ML IV SCH ×2 (07:38)
--- NOTE | 2017-01-09 10:44 | Progress Note (SOAP) ---
MAGALY IVEY MED STUDENT 01/09/17 1044: Subjective Subjective/Events-last exam Patient presents today in no acute distress. The patient's insulin drip was stopped at 7 AM yesterday. Patient also was told to detach his insulin pump yesterday because we wanted to change his tubing to determine if his pump was the issue causing inadequate blood sugar control. Patient stated upon admission that his pump was "not working." Patient received 40 units of determir and 10 units of regular insulin between 2-4 PM yesterday. He received 15 units of insulin aspart and 8 units of regular insulin at 6 PM. Patient's glucose levels fluctuated between 50-374 in the past 24 hours. Overnight, the patient's blood glucose was 50 on two occasions around midnight at 3 AM. Patient states he could tell his glucose was low because he felt shaky and hungry. Patient denies nausea, vomiting, or abdominal pain. Patient restarted his pump earlier this morning based on his own judgement. Around 9 AM prior to breakfast, the patient administered 8.9 units via his pump and his basal level is 1.6 units/hour. The patient ate shortly after administering his bolus. Additionally, the patient states his R 5th toe is numb and painful. He first noticed this yesterday. Review of Systems Date Seen by Provider: Jan 09, 2017 Time Seen by Provider: 09:30 Musculoskeletal: foot pain (R 5th toe is numb and painful) Objective Exam Last Set of Vital Signs Vital Signs Date Time Temp Pulse Resp B/P (MAP) Pulse Ox O2 Delivery O2 Flow Rate FiO2 01/09/17 08:00 97 Room Air 01/09/17 07:00 70 01/09/17 04:00 97.9 14 105/48 Capillary Refill : Less Than 3 SecondsLess Than 3 Seconds I&O Intake and Output 01/09/17 00:00 Intake Total 5030 ml Output Total 5675 ml Balance -645 ml Intake Oral 2830 ml IV Total 2200 ml Output Urine Total 5675 ml General: Alert, Oriented X3, Cooperative Lungs: Clear to Auscultation, Normal Air Movement Heart: Regular Rate, Normal S1, Normal S2, No Murmurs Abdomen: Normal Bowel Sounds, No Tenderness Results/Procedures Lab Laboratory Tests 01/08/17 11:20: Glucometer 183H 01/08/17 11:50: Sodium Level 140, Potassium Level 4.1, Chloride Level 107, Carbon Dioxide Level 23, Anion Gap 10, Blood Urea Nitrogen 8, Creatinine 0.76, Estimat Glomerular Filtration Rate > 60, BUN/Creatinine Ratio 11, Glucose Level 272H, Calcium Level 9.3 01/08/17 12:32: Glucometer 273H 01/08/17 13:55: Glucometer 347H 01/08/17 15:16: Glucometer 273H 01/08/17 17:15: Glucometer 264H 01/08/17 18:42: Glucometer 279H 01/08/17 21:09: Glucometer 99 01/08/17 22:30: Glucometer 41*L 01/08/17 22:54: Glucometer 61L 01/08/17 23:43: Glucometer 87 01/09/17 00:58: Glucometer 50*L 01/09/17 01:29: Glucometer 90 01/09/17 03:34: Glucometer 50*L 01/09/17 04:07: White Blood Count 7.4, Red Blood Count 4.84, Hemoglobin 15.0, Hematocrit 42, Mean Corpuscular Volume 88, Mean Corpuscular Hemoglobin 31, Mean Corpuscular Hemoglobin Concent 35, Red Cell Distribution Width 12.5, Platelet Count 157, Mean Platelet Volume 10.5H, Neutrophils (%) (Auto) 41L, Lymphocytes (%) (Auto) 46H, Monocytes (%) (Auto) 10, Eosinophils (%) (Auto) 2, Basophils (%) (Auto) 1, Neutrophils # (Auto) 3.1, Lymphocytes # (Auto) 3.4, Monocytes # (Auto) 0.8, Eosinophils # (Auto) 0.2, Basophils # (Auto) 0.0, Sodium Level 142, Potassium Level 3.8, Chloride Level 106, Carbon Dioxide Level 23, Anion Gap 13, Blood Urea Nitrogen 12, Creatinine 0.71, Estimat Glomerular Filtration Rate > 60, BUN/ Creatinine Ratio 17, Glucose Level 99, Calcium Level 9.1, Phosphorus Level 5.7H , Magnesium Level 2.1 01/09/17 04:13: Glucometer 91 01/09/17 08:52: Glucometer 159H Microbiology 01/06/17 MRSA Screen - Final, Complete MRSA not isolated Radiology CT head 01/07/2017: Unremarkable Assessment/Plan Assessment/Plan Admission Dx Plan DIABETIC KETOACIDOSIS POORLY CONTROLLED DIABETES MELLITUS TYPE 1 01/06 ADM: on DKA protocol, has received 2L and is now on 250mL per hour. BS coming down nicely. will continue until gap closes, then transition to subcut insulin. this will likely be tonight. will need continued fluid resuscitation through the night as well. 01/07 Switched to subcutaneous insulin around 0930, administer the insulin how patient states he was administering at home to determine if management is controlled, sliding scale insulin as needed; continue potassium replacement; continue checking blood glucose for 4 hours after transitioning to subcutaneous insulin (stop checking around 1330); dc IV fluids; consult diabetes educators 01/08 Plan to take patient off of insulin drip today and attempt to control blood sugar with subcutaneous insulin via his insulin pump, will plan to administer basal insulin at a rate of 1.6 units/hour with a scheduled bolus of 12 units per meal (with 60 gram carbohydrate diet, 15 grams of carbs in one serving, 3 units per one serving of carbohydrates) 01/09 Patient is now administering insulin via his pump in a new site, will continue to monitor his blood sugar levels. Goal is to keep blood sugars in between 100-250. Patient can be discharged if blood sugars are controlled. If his pump is adequately controlling his sugars, we will continue with that. If not, we will need to send him home with insulin injections VIRAL GASTROENTERITIS ADM: likely precipitating factor for DKA. phenergan for nausea. clear fluid diet for now until BS are controlled and his nausea is much improved. 01/07 dc fluids, nausea resolved 01/08 resolved LEUKOCYTOSIS ADM: due to moderate to severe DKA, will observe without abx for now as I have no clear indication of a bacterial infection. suspect stress response. rechk in AM. 01/07 WBC continue to decrease, monitor 01/08 WBC decreased to normal range, resolved ACUTE KIDNEY INJURY 2/2 DEHYDRATION ELECTROLYTE IMBALANCES ADM: Creatinine responding nicely. Continue q2h BMP. expect hyperkalemia to resolve as we rehydrate and correct the acidosis. 01/07 resolved, Creatinine, BUN, and GFR normal 01/08 resolved DVT Proph: expect patient will be up and walking around later today as he is feeling better. SCDs til then. 01/07 continue SCDs 01/08 continue SCDs Diagnosis/Problems: Clinical Quality Measures DVT/VTE Risk/Contraindication: Risk Factor Score Per Nursin RFS Level Per Nursing on Admit: 1=Low/No VTE PPX TIMOTHY SOTO MD 01/10/17 1030: Supervisory-Addendum Brief Supervisory Addendum Patient seen and examined with MS3 Magaly Ivey, please see my d/c summary for further details. MAGALY IVEY MED STUDENT Jan 09, 2017 10:44 TIMOTHY SOTO MD Jan 10, 2017 10:30
--- OUTSIDE RECORDS SUMMARY | 2017-01-09 12:54 | XMS REPORT ---
Author Author MIRACLE PUGH Organization [employer] Address Unknown Phone Unavailable Care Team Providers Care Body Worker Name Role Phone MIRACLE PUGH CP Unavailable Allergies No Known Allergies Problems Problem Type Condition Code Onset Dates Condition Status Problem Routine infant or child health check V20.2 Active Problem Diabetes mellitus without mention of complication, type I [juvenile type], not stated as uncontrolled 250.01 Active Problem Vomiting alone 787.03 Active Assessment Encounter for immunization Z23 Active Medications No Known Medications Procedures Procedure Coding System Code Date SINGLE IMMUNIZATION ADMIN CPT-4 16881 November 02, 2015 BEXSERO (MEN B) CPT-4 52482 November 02, 2015 Results No Known Results Immunizations Vaccine Administration Date BEXSERO (MEN B) November 02, 2015 Summary Purpose [employer] Submission
--- OUTSIDE RECORDS SUMMARY | 2017-01-09 12:54 | XMS REPORT | Continuity of Care Document ---
Author Author [employer] Organization [employer] Address Unknown Phone Unavailable Care Team Providers Care Insurance Underwriter Name Role Phone [employer] Unavailable Unavailable Problems Problem Status Onset Date Classification Date Reported Comments Source No current problems or disability (context-dependent category) Active Problem 02/04/2015 [facility] Medications Medication Details Route Status Patient Instructions Ordering Provider Order Date Source Lamisil AT Athletes Foot *NF* Refill(s) 0 [facility] Benadryl 25 mg=1 capsule, PO, q6hr, Refill(s) 0 [facility] Lantus Solostar Pen 100 units/mL subcutaneous solution 5 ct box =30 unit, Subcutaneous, HS (bedtime), # 30 day(s), Refill(s) 5 [facility] tamoxifen 10 mg oral tablet 10 mg=1 tablet, PO, BID, # 60 tablet, Refill(s) 0, other reason (Rx) Active [facility] Glucagon Emergency Kit 1 kit, IM, 1 time only, Use for severe low blood glucose, # 2 kit, Refill(s) 1, Pharmacy: [facility]
</br>Use for severe low blood glucose Active [facility] Alcohol Swabs 1 EA, Topical, per protocol, 1 box of 300, # 1 box, Refill(s) 5, Pharmacy: [facility]
</br>1 box of 300 Active [facility] One Touch Ultra Test [id number] ct Box 1 strip, Finger Tip, Other-see comments, 10 times per day; 90 day, # 9 box, Refill(s) 0, called to pharmacy (Rx)
</br>10 times per day; 90 day Active [facility] HumaLOG 100 units/mL subcutaneous injection See Instructions, INJECT 70 UNITS SUBCUTANEOUSLY DAILY;90 day supply, # 70 mL, Refill(s) 0, called to pharmacy (Rx)
</br>INJECT 70 UNITS SUBCUTANEOUSLY DAILY;90 day supply Active [facility] tamoxifen 20 mg oral tablet 20 mg=1 tablet, PO, qDay, # 30 tablet, Refill(s) 5, Pharmacy: [facility] Active [facility] Pump Supplies 1 device, Other-(see comments), Other- see comments, Infusion sets 23" 6mm. Change infusion set and resevoir every 2 days as directed, x 90 day(s), Supply 90 day(s), Refill(s) 3, Pharmacy: [facility]
</br>Infusion sets 23" 6mm. Change infusion set and resevoir every 2 days as directed Active [facility] Humalog 100 units/mL subcutaneous injection 70 units, Subcutaneous, daily, x 30 day(s), # 3 vial, Refill(s) 5, Pharmacy: [facility] Inactive [facility] ONE TOUCH ULTRA BLUE TEST STP See Instructions, USE STRIPS 10 TIMES PER DAY, # 300 EA, Refill(s) 4, eRx: [facility]
</ br>USE STRIPS 10 TIMES PER DAY Active [facility] Blood Sugar Meter 1 device, Other-(see comments), Other-see comments, One touch ultra mini, # 1 device, Refill(s) 0, Pharmacy: [facility]
</br>One touch ultra mini Active [facility] Humalog KwikPen 100 units/mL subcutaneous injection = 40 unit, Subcutaneous, qDay, Refill(s) 5, Pharmacy: [facility] Active [facility] Allergies, Adverse Reactions, Alerts Substance Category Reaction Severity Reaction type Status Date Reported Comments Source [place] propensity to adverse reactions to substance Diarrhea Stop Substance: Moderate Adverse Reaction [facility] Immunizations Results Order Name Results Value Reference Range Date Interpretation Comments Source Hgb A1c POC Hemoglobin A1c (POC) 9.9 % 4.0 - 6.0 2014 [facility] Hgb A1c Hemoglobin A1c 7.4 % 4.0 - 6.0 02/04/2014 [facility] TTG-A R Transglutaminase IgA 4.14 unit(s) 0.00 - 19.99 NA Reference Ranges:< br/> <20 unit=Negative
20-40 unit=Indeterminate
>40 unit= Positive
[facility] TSH Alg D TSH 3.24 mcIU/mL 0.35 - 5.50 10/01/2013 NA [facility] Creat U Re Creatinine Ur Random 130.4 mg/dL 10/01/2013 [facility] [place] mAlb w Cr Microalbumin Ur 25 mcg/mL 10/01/[address] [facility] IgA Historical IgA Historical 189.0 mg/dL 10/01/2013 NA Added by [employer]
[facility] Hgb A1c Hemoglobin A1c 7.9 % 4.0 - 6.0 10/01/2013 [facility] LDL/VLDL LDL 61 mg/dL 65 - 120 10/01/2013 LOW [facility] Lipid Tam Cholesterol Total 120 mg/dL 107 - 200 2013 [facility] [place] Vital Signs Encounters Location Location Details Encounter Type Encounter Number Reason For Visit Attending Provider ADM Date DC Date Status Source CMB CMB REF [id number] f/u DM Adrienne [place] 05/28/2013 05/28/2013 [facility] CMB CMB REF [id number] labs Ad[place]ne [place] 05/28/2013 05/28/2013 [facility] CMB CMB REF [id number] DM Elly Rosenbaum DO 10/01/20132013 [facility] CMB CMB REF [id number] labs Blanca [place] 10/01/2013 10/01/2013 [facility] CMB CMB REF [id number] DM Blanca [place] 02/04/2014 02/04/2014 [facility] CMB CMB REF [id number] labs Blanca [place] 02/04/2014 02/04/2014 Active [facility] CMB REF [id number] Ad[place]ne [place] 02/03/20152014 Active [facility] CMB REF [id number] Ad[place]ne [place] 02/03/20152014 Active [facility] Procedures Plan of Care Social History Assessment and Plan Family History Value Date Source Advance Directives Order Name Results Value Date Source
--- OUTSIDE RECORDS SUMMARY | 2017-01-09 12:54 | XMS REPORT ---
Author THOMAS Perry Organization [employer] Address Unknown Phone Unavailable Care Team Providers Care Loan Service Officer Name Role Phone THOMAS BARNES CP Unavailable Allergies No Known Allergies Problems Problem Type Condition ICD-9 Code Onset Dates Condition Status Problem Routine or child health check V20.2 Active Problem Diabetes mellitus without mention of complication, type I [juvenile type], not stated as uncontrolled 250.01 Active Problem Vomiting alone 787.03 Active Medications No Known Medications Results No Known Results Summary Purpose [employer] Submission
--- OUTSIDE RECORDS SUMMARY | 2017-01-09 12:54 | XMS REPORT ---
Author Author THOMAS BARNES [facility] [employer] Address Unknown Phone Unavailable Care Team Providers Care File System Installer Name Role Phone THOMAS BARNES CP Unavailable Allergies No Known Allergies Problems Problem Type Condition Code Onset Dates Condition Status Problem Controlled type 1 diabetes mellitus without complication, with long- term current use of insulin E10.9 Active Medications No Known Medications Results No Known Results Summary Purpose [employer] Submission
--- OUTSIDE RECORDS SUMMARY | 2017-01-09 12:55 | XMS REPORT ---
Author Author CARMEN FORBES [facility] eClinicalWorks Address Unknown Phone Unavailable Care Team Providers Care Talent Partner Name Role Phone CARMEN FORBES CP Unavailable Allergies, Adverse Reactions, Alerts Substance Reaction Event Type [place] Info Not Available Non Drug Allergy Problems Problem Type Condition ICD-9 Code Onset Dates Condition Status Problem Routine infant or child health check V20.2 Active Problem Diabetes mellitus without mention of complication, type I [juvenile type], not stated as uncontrolled 250.01 Active Problem Vomiting alone 787.03 Active Assessment Diabetes mellitus without mention of complication, type I [ juvenile type], not stated as uncontrolled 250.01 Active Medications Medication Code System Code Instructions Start Date End Date Status Dosage Humalog [facility] [address]-35 Subcutaneous via pump December 26, 2011 by Subcutaneous route Procedures Procedure Coding System Code Date ASSAY THYROID STIM HORMONE CPT-4 39066 Mar 01, 2015 ASSAY OF FREE THYROXINE CPT-4 50938 Mar 01, 2015 Office Visit, Est Pt., Level 4 CPT-4 44117 Mar 01, 2015 MICROALBUMIN, QUANTITATIVE CPT-4 00067 Mar 01, 2015 LIPID PANEL CPT-4 43803 Mar 01, 2015 IMMUNOASSAY, NONANTIBODY CPT-4 42139 Mar 01, 2015 VENIPUNCT, ROUTINE* CPT-4 58703 Mar 01, 2015 Vital Signs Date/Time: Mar 01, 2015 Temperature 97.8 F BMIPercentile 77.06 % Weight 188.0 lbs Height 74 in BMI 24.14 Index Blood Pressure Diastolic 58 mmHg Blood Pressure Systolic 112 mmHg Cardiac Monitoring Heart Rate 62 bpm Wt Percentile 91.14 % Ht Percentile 95.56 % Results Name Result Date Reference Range Unit Abnormality Flag ROUTINE VENIPUNCTURE Summary Purpose eClinicalWorks Submission
--- OUTSIDE RECORDS SUMMARY | 2017-01-09 12:55 | XMS REPORT ---
Author Author SUSANA EDWARDS Organization eClinicalWorks Address Unknown Phone Unavailable Care Team Providers Care Patient Information Coordinator Name Role Phone SUSANA EDWARDS CP Unavailable Allergies, Adverse Reactions, Alerts Substance Reaction Event Type [place] Info Not Available Non Drug Allergy Problems Problem Type Condition Code Onset Dates Condition Status Problem Routine infant or child health check V20.2 Active Problem Diabetes mellitus without mention of complication, type I [juvenile type], not stated as uncontrolled 250.01 Active Problem Vomiting alone 787.03 Active Assessment Insect bite of arm, right, infected S40.861A Active Medications Medication Code System Code Instructions Start Date End Date Status Dosage Humalog [facility] [address]-07 Subcutaneous via pump December 26, 2011 by Subcutaneous route Clindamycin HCl [facility] [address]-84 150 MG Orally every 8 hrs Apr 07, 2015 Apr 17, 2015 1 capsule Bactrim DS [facility] [address]-16 800-160 MG Orally 2 times a day Apr 05, 2015 Apr 15, 2015 1 tablet Acidophilus Probiotic Blend [facility] [address]94761 1 Orally Once a day Apr 07, 2015 Apr 21, 2015 as directed Zyrtec Allergy [facility] [address]-83 10 MG Orally Once a day for itching Apr 05, 2015 May 05, 2015 1 tablet as needed Procedures Procedure Coding System Code Date Office Visit, Est Pt., Level 3 CPT-4 25382 Apr 07, 2015 Vital Signs Date/Time: Apr 07, 2015 Cardiac Monitoring Heart Rate 70 bpm Temperature 98.0 F Weight 188 lbs Wt Percentile 90.71 % Blood Pressure Diastolic 70 mmHg Blood Pressure Systolic 114 mmHg Results No Known Results Summary Purpose eClinicalWorks Submission
--- OUTSIDE RECORDS SUMMARY | 2017-01-09 12:55 | XMS REPORT ---
Author Author SHUKRI BUSCH Organization eClinicalWorks Address Unknown Phone Unavailable Care Team Providers Care Hand Marker Name Role Phone SHUKRI BUSCH CP Unavailable Allergies, Adverse Reactions, Alerts Substance Reaction Event Type [place] Info Not Available Non Drug Allergy Problems [...] Start Date End Date Status Dosage Humalog [facility][NOTE 3] [address]-95 Subcutaneous via pump December 26, 2011 by Subcutaneous route Procedures Procedure Coding System Code Date URINALYSIS, AUTO, W/O SCOPE CPT-4 41728 Aug 19, 2015 Office Visit, Est Pt., Level 3 CPT-4 83271 Aug 19, 2015 Vital Signs Date/Time: Aug 19, 2015 Temperature 99.0 F Weight 181.2 lbs Height 74 in BMI 23.26 Index Blood Pressure Diastolic 74 mmHg Blood Pressure Systolic 120 mmHg Cardiac Monitoring Heart Rate 68 bpm BMIPercentile 65.83 % Wt Percentile 86.32 % Results Name Result Date Reference Range Unit Abnormality Flag UA LONG DIP (IN HOUSE) ----GREG negative 20150819 ----NIT negative 20150819 ----SG 1.015 [id number] ----KET negative [id number] ----BARBARA negative [id number] ----GLU 2+ [id number] ----Odor no [id number] ----pH 7.5 20150819 ----BLO negative [id number] ----URO 0.2 [id number] ----Protein negative 20150819 ----Lot # [id number] ----Exp date [id number] ----Clarity clear [id number] ----Color yellow [id number] Summary Purpose eClinicalWorks Submission
--- OUTSIDE RECORDS SUMMARY | 2017-01-09 13:01 | XMS REPORT | Continuity of Care Document ---
Author Author [employer] Organization [place] Address Unknown Phone Unavailable Care Team Providers Care Franchise Broker Name Role Phone [employer] Unavailable Unavailable Problems Problem Status Onset Date Classification Date Reported Comments Source No current problems or disability (context-dependent category) Active Problem 02/04/2015 [facility] Medications Medication Details Route Status Patient Instructions Ordering Provider Order Date Source Lamisil AT [facility] *NF* Refill(s) 0 [facility] Benadryl 25 mg=1 capsule, PO, q6hr, Refill(s) 0 [facility] Lantus Solostar Pen 100 units/mL subcutaneous solution 5 ct box =30 unit, Subcutaneous, HS (bedtime), # 30 day(s), Refill(s) 5 [facility] tamoxifen 10 mg oral tablet 10 mg=1 tablet, PO, BID, # 60 tablet, Refill(s) 0, other reason (Rx) Active [facility] Glucagon Emergency Kit 1 kit, IM, 1 time only, Use for severe low blood glucose, # 2 kit, Refill(s) 1, Pharmacy: [facility]
</br>Use for severe low blood glucose Active [facility] Alcohol Swabs 1 EA, Topical, per protocol, 1 box of 300, # 1 box, Refill(s) 5, Pharmacy: [facility]
</br>1 box of 300 Active [facility] One Touch Ultra Test [id number] ct Box 1 strip, Finger Tip, Other-see comments, 10 times per day; 90 day, # 9 box, Refill(s) 0, called to pharmacy (Rx)
</br>10 times per day; 90 day Active [facility] HumaLOG 100 units/mL subcutaneous injection See Instructions, INJECT 70 UNITS SUBCUTANEOUSLY DAILY;90 day supply, # 70 mL, Refill(s) 0, called to pharmacy (Rx)
</br>INJECT 70 UNITS SUBCUTANEOUSLY DAILY;90 day supply Active [facility] tamoxifen 20 mg oral tablet 20 mg=1 tablet, PO, qDay, # 30 tablet, Refill(s) 5, Pharmacy: [facility] Active [facility] Pump Supplies 1 device, Other-(see comments), Other- see comments, Infusion sets 23" 6mm. Change infusion set and resevoir every 2 days as directed, x 90 day(s), Supply 90 day(s), Refill(s) 3, Pharmacy: [facility]
</br>Infusion sets 23" 6mm. Change infusion set and resevoir every 2 days as directed Active [facility] Humalog 100 units/mL subcutaneous injection 70 units, Subcutaneous, daily, x 30 day(s), # 3 vial, Refill(s) 5, Pharmacy: [facility] [address] [facility] ONE TOUCH ULTRA BLUE TEST STP See Instructions, USE STRIPS 10 TIMES PER DAY, # 300 EA, Refill(s) 4, eRx: [facility]
</ br>USE STRIPS 10 TIMES PER DAY Active [facility] Blood Sugar Meter 1 device, Other-(see comments), Other-see comments, One touch ultra mini, # 1 device, Refill(s) 0, Pharmacy: [facility]
</br>One touch ultra mini Active [facility] Humalog KwikPen 100 units/mL subcutaneous injection = 40 unit, Subcutaneous, qDay, Refill(s) 5, Pharmacy: [facility] Active [facility] Allergies, Adverse Reactions, Alerts Substance Category Reaction Severity Reaction type Status Date Reported Comments Source [place] propensity to adverse reactions to substance Diarrhea Stop Substance: Moderate Adverse Reaction [facility] Immunizations Results Order Name Results Value Reference Range Date Interpretation Comments Source Hgb A1c POC Hemoglobin A1c (POC) 9.9 % 4.0 - 6.0 2014 [facility] Hgb A1c Hemoglobin A1c 7.4 % 4.0 - 6.0 02/04/2014 [facility] TTG-A R Transglutaminase IgA 4.14 unit(s) 0.00 - 19.99 NA Reference Ranges:< br/> <20 unit=Negative
20-40 unit=Indeterminate
>40 unit= Positive
[facility] TSH Alg D TSH 3.24 mcIU/mL 0.35 - 5.50 10/01/2013 NA [facility] Creat U Re Creatinine Ur Random 130.4 mg/dL 10/01/2013 [facility] mAlb w Cr Microalbumin Ur 25 mcg/mL 10/01/2013 [facility] IgA Historical IgA Historical 189.0 mg/dL 10/01/2013 NA Added by [employer]
[facility] Hgb A1c Hemoglobin A1c 7.9 % 4.0 - 6.0 10/01/2013 [facility] LDL/VLDL LDL 61 mg/dL 65 - 120 10/01/2013 LOW [facility] Lipid Tam Cholesterol Total 120 mg/dL 107 - 200 2013 [facility] Vital Signs Encounters Location Location Details Encounter Type Encounter Number Reason For Visit Attending Provider ADM Date DC Date Status Source CMB CMB REF [id number] f/u DM Adrienne [place] 05/28/2013 05/28/2013 [facility] CMB CMB REF [id number] labs Adrienne [place] 05/28/2013 05/28/2013 [facility] CMB CMB REF [id number] DM Elly Rosenbaum DO 10/01/20132013 [facility] CMB CMB REF [id number] labs Blanca [place] 10/01/2013 10/01/2013 [facility] CMB CMB REF [id number] DM Blanca [place] 02/04/2014 02/04/2014 [facility] CMB CMB REF [id number] labs Blanca [place] 02/04/2014 02/04/2014 Active [facility] CMB REF [id number] Adrienne South 02/03/20152014 Active [facility] CMB REF [id number] Adrienne [place] 02/03/20152014 Active [facility] Procedures Plan of Care Social History Assessment and Plan Family History Value Date Source Advance Directives Order Name Results Value Date Source
[2017-01-09] MEDS ORDERED: inSUlin DETERMIR 1 UNIT/0.01 ML (LEVEMIR) CHARGE PER UNIT SQ SCH (14:00)
--- NOTE | 2017-01-09 20:50 | Discharge Summary ---
Diagnosis/Chief Complaint Date of Admission Jan 06, 2017 at 05:20 Date of Discharge January 09, 2017 Admission Diagnosis Admission Diagnosis DIABETIC KETOACIDOSIS POORLY CONTROLLED DIABETES MELLITUS TYPE 1 VIRAL GASTROENTERITIS LEUKOCYTOSIS ACUTE KIDNEY INJURY 2/2 DEHYDRATION ELECTROLYTE IMBALANCES Discharge Diagnosis DIABETIC KETOACIDOSIS POORLY CONTROLLED DIABETES MELLITUS TYPE 1 01/06 ADM: on DKA protocol, has received 2L and is now on 250mL per hour. BS coming down nicely. will continue until gap closes, then transition to subcut insulin. this will likely be tonight. will need continued fluid resuscitation through the night as well. 01/07 Switched to subcutaneous insulin around 0930, administer the insulin how patient states he was administering at home to determine if management is controlled, sliding scale insulin as needed; continue potassium replacement; continue checking blood glucose for 4 hours after transitioning to subcutaneous insulin (stop checking around 1330); dc IV fluids; consult diabetes educators- after switching to pump blood sugar immediately began to rise and gap increased and bicarb decreased so drip restarted 01/08 Switched to pump and again blood sugar increased, so discussed changing pump site, started levemir and novolog in the meantime while waiting for supplies 01/09 Patient started his pump in new location with new batteries several hours before the levemir given day prior would be metabolized and his blood sugar dropped, improved with intake and he was anxious to go home, has glucagon kit at home and roommates to help monitor him. VIRAL GASTROENTERITIS ADM: likely precipitating factor for DKA. phenergan for nausea. clear fluid diet for now until BS are controlled and his nausea is much improved. 01/07 dc fluids, nausea resolved 01/08 resolved LEUKOCYTOSIS ADM: due to moderate to severe DKA, will observe without abx for now as I have no clear indication of a bacterial infection. suspect stress response. rechk in AM. 01/07 WBC continue to decrease, monitor 01/08 WBC decreased to normal range, resolved ACUTE KIDNEY INJURY 2/2 DEHYDRATION ELECTROLYTE IMBALANCES ADM: Creatinine responding nicely. Continue q2h BMP. expect hyperkalemia to resolve as we rehydrate and correct the acidosis. 01/07 resolved, Creatinine, BUN, and GFR normal 01/08 resolved Chief Complaint/HPI Chief Complaint/HPI 21yo male with a history of poorly controlled Type 1 diabetes presented to ER with profuse N/V/D. Non bilious vomiting. Non bloody, no mucus in diarrhea. No fever. Pt states he has been seeing Helena Mckeon for his diabetes. Goes to [facility] when he is sick. Has been giving himself insulin by report. Of note, this history was abbreviated as he was somnolent but arousable. His nurse did tell me that he had been more awake this morning and was likely tired. Discharge Summary-Simple/Stand Consultations Discharge Physical Examination Allergies: Coded Allergies: No Known Drug Allergies (Unverified , 03/30/11) Vitals & I&Os Vital Sign - Last 12Hours Date Time Temp Pulse Resp B/P (MAP) Pulse Ox O2 Delivery O2 Flow Rate FiO2 01/09/17 19:00 76 01/09/17 08:00 97 Room Air 01/09/17 04:00 97.9 14 105/48 Intake and Output 01/09/17 00:00 Intake Total 1860 ml Output Total 3375 ml Balance -1515 ml General Appearance: Alert, No Acute Distress Extremities: No Clubbing, No Edema, Other (right fifth digit with mild erythema at base of toenail, no ttp) Psych/Mental Status: Mental Status NL Hospital Course See final discharge diagnosis. Labs Laboratory Tests Test 01/07/17 20:55 01/07/17 22:21 01/07/17 22:55 01/07/17 23:02 Range/Units Glucometer 226 H 158 H 120 H 70-110 MG/DL Sodium Level 139 135-145 MMOL/L Potassium Level 4.0 3.6-5.0 MMOL/L Chloride Level 109 H 98-107 MMOL/L Carbon Dioxide Level 22 21-32 MMOL/L Anion Gap 8 5-14 MMOL/L Blood Urea Nitrogen 9 7-18 MG/DL Creatinine 0.78 0.60-1.30 MG/DL Estimat Glomerular Filtration Rate > 60 BUN/Creatinine Ratio 12 Glucose Level 135 H 70-105 MG/DL Calcium Level 9.2 8.5-10.1 MG/DL Test 01/07/17 23:50 01/08/17 01:14 01/08/17 02:08 01/08/17 02:57 Range/Units Glucometer 155 H 173 H 179 H 138 H 70-110 MG/DL Test 01/08/17 03:53 01/08/17 03:54 01/08/17 04:57 01/08/17 05:59 Range/Units Glucometer 160 H 227 H 224 H 70-110 MG/DL White Blood Count 9.1 4.3-11.0 10^3/uL Red Blood Count 4.52 4.35-5.85 10^6/uL Hemoglobin 13.8 13.3-17.7 G/DL Hematocrit 40 40-54 % Mean Corpuscular Volume 88 80-99 FL Mean Corpuscular Hemoglobin 31 25-34 PG Mean Corpuscular Hemoglobin Concent 35 32-36 G/DL Red Cell Distribution Width 12.7 10.0-14.5 % Platelet Count 147 130-400 10^3/uL Mean Platelet Volume 10.7 H 7.4-10.4 FL Neutrophils (%) (Auto) 52 42-75 % Lymphocytes (%) (Auto) 37 12-44 % Monocytes (%) (Auto) 11 0-12 % Eosinophils (%) (Auto) 1 0-10 % Basophils (%) (Auto) 0 0-10 % Neutrophils # (Auto) 4.7 1.8-7.8 X 10^3 Lymphocytes # (Auto) 3.3 1.0-4.0 X 10^3 Monocytes # (Auto) 1.0 0.0-1.0 X 10^3 Eosinophils # (Auto) 0.1 0.0-0.3 10^3/uL Basophils # (Auto) 0.0 0.0-0.1 10^3/uL Sodium Level 141 135-145 MMOL/L Potassium Level 4.4 3.6-5.0 MMOL/L Chloride Level 110 H 98-107 MMOL/L Carbon Dioxide Level 22 21-32 MMOL/L Anion Gap 9 5-14 MMOL/L Blood Urea Nitrogen 7 7-18 MG/DL Creatinine 0.75 0.60-1.30 MG/DL Estimat Glomerular Filtration Rate > 60 BUN/Creatinine Ratio 9 Glucose Level 175 H 70-105 MG/DL Calcium Level 9.2 8.5-10.1 MG/DL Phosphorus Level 3.4 2.3-4.7 MG/DL Magnesium Level 1.7 L 1.8-2.4 MG/DL Test 01/08/17 06:59 01/08/17 08:03 01/08/17 08:10 01/08/17 09:14 Range/Units Glucometer 204 H 156 H 151 H 70-110 MG/DL Sodium Level 140 135-145 MMOL/L Potassium Level 3.8 3.6-5.0 MMOL/L Chloride Level 108 H 98-107 MMOL/L Carbon Dioxide Level 23 21-32 MMOL/L Anion Gap 9 5-14 MMOL/L Blood Urea Nitrogen 6 L 7-18 MG/DL Creatinine 0.73 0.60-1.30 MG/DL Estimat Glomerular Filtration Rate > 60 BUN/Creatinine Ratio 8 Glucose Level 182 H 70-105 MG/DL Calcium Level 9.1 8.5-10.1 MG/DL Test 01/08/17 10:20 01/08/17 11:20 01/08/17 11:50 01/08/17 12:32 Range/Units Glucometer 117 H 183 H 273 H 70-110 MG/DL Sodium Level 140 135-145 MMOL/L Potassium Level 4.1 3.6-5.0 MMOL/L Chloride Level 107 98-107 MMOL/L Carbon Dioxide Level 23 21-32 MMOL/L Anion Gap 10 5-14 MMOL/L Blood Urea Nitrogen 8 7-18 MG/DL Creatinine 0.76 0.60-1.30 MG/DL Estimat Glomerular Filtration Rate > 60 BUN/Creatinine Ratio 11 Glucose Level 272 H 70-105 MG/DL Calcium Level 9.3 8.5-10.1 MG/DL Test 01/08/17 13:55 01/08/17 15:16 01/08/17 17:15 01/08/17 18:42 Range/Units Glucometer 347 H 273 H 264 H 279 H 70-110 MG/DL Test 01/08/17 21:09 01/08/17 22:30 01/08/17 22:54 01/08/17 23:43 Range/Units Glucometer 99 41 *L 61 L 87 70-110 MG/DL Test 01/09/17 00:58 01/09/17 01:29 01/09/17 03:34 01/09/17 04:07 Range/Units Glucometer 50 *L 90 50 *L 70-110 MG/DL White Blood Count 7.4 4.3-11.0 10^3/uL Red Blood Count 4.84 4.35-5.85 10^6/uL Hemoglobin 15.0 13.3-17.7 G/DL Hematocrit 42 40-54 % Mean Corpuscular Volume 88 80-99 FL Mean Corpuscular Hemoglobin 31 25-34 PG Mean Corpuscular Hemoglobin Concent 35 32-36 G/DL Red Cell Distribution Width 12.5 10.0-14.5 % Platelet Count 157 130-400 10^3/uL Mean Platelet Volume 10.5 H 7.4-10.4 FL Neutrophils (%) (Auto) 41 L 42-75 % Lymphocytes (%) (Auto) 46 H 12-44 % Monocytes (%) (Auto) 10 0-12 % Eosinophils (%) (Auto) 2 0-10 % Basophils (%) (Auto) 1 0-10 % Neutrophils # (Auto) 3.1 1.8-7.8 X 10^3 Lymphocytes # (Auto) 3.4 1.0-4.0 X 10^3 Monocytes # (Auto) 0.8 0.0-1.0 X 10^3 Eosinophils # (Auto) 0.2 0.0-0.3 10^3/uL Basophils # (Auto) 0.0 0.0-0.1 10^3/uL Sodium Level 142 135-145 MMOL/L Potassium Level 3.8 3.6-5.0 MMOL/L Chloride Level 106 98-107 MMOL/L Carbon Dioxide Level 23 21-32 MMOL/L Anion Gap 13 5-14 MMOL/L Blood Urea Nitrogen 12 7-18 MG/DL Creatinine 0.71 0.60-1.30 MG/DL Estimat Glomerular Filtration Rate > 60 BUN/Creatinine Ratio 17 Glucose Level 99 70-105 MG/DL Calcium Level 9.1 8.5-10.1 MG/DL Phosphorus Level 5.7 H 2.3-4.7 MG/DL Magnesium Level 2.1 1.8-2.4 MG/DL Test 01/09/17 04:13 01/09/17 08:52 01/09/17 11:16 01/09/17 12:15 Range/Units Glucometer 91 159 H 148 H 141 H 70-110 MG/DL Test 01/09/17 14:44 01/09/17 15:48 01/09/17 17:31 01/09/17 18:16 Range/Units Glucometer 41 *L 73 57 *L 73 70-110 MG/DL Test 01/09/17 18:37 Range/Units Glucometer 141 H 70-110 MG/DL Radiology Reviewed CT head 01/07/2017: Unremarkable Discharge Instructions to patient/family Please see electonic discharge instructions given to patient. Discharge Medications Reviewed and agree with Discharge Medication list on patient's Discharge Instruction sheet Clinical Quality Measures DVT/VTE Risk/Contraindication: Risk Factor Score Per Nursin RFS Level Per Nursing on Admit: 1=Low/No VTE PPX Copy Copies To 1: JUAN DIEGO CRUZ MD, BETHANY N MD Jan 09, 2017 20:50
== END 2017-01-09 19:20 | disposition home or self-care (01) | DRG 638 ==
LOC: EDUNIT# 03:42 → ER 03:46 → ICU 05:20 → ENPENDDIS 01-09 14:30
PROVIDERS: ADMIT Pediatrics; ATTEND Pediatrics
DX: E10.10 Type 1 diabetes mellitus with ketoacidosis without coma (principal); N17.9 Acute kidney failure, unspecified; A08.4 Viral intestinal infection, unspecified; D72.829 Elevated white blood cell count, unspecified; E86.0 Dehydration; E87.8 Other disorders of electrolyte and fluid balance, not elsewhere classified; F32.9 Major depressive disorder, single episode, unspecified; F17.210 Nicotine dependence, cigarettes, uncomplicated; Z79.4 Long term (current) use of insulin
CPT/HCPCS: 36415; 70450; 71010; 80048; 80053; 81000; 82805; 82962; 83036; 83735; 84100; 85007; 85025; 85027; 87081; 96361; 96374; 96375

== ENCOUNTER 2017-05-16 11:05 | Emergency (ER) | payer OTHER ==
[~2017-05-16] VITALS: Ht 188 cm; Wt 83.9 kg
[~2017-05-16 11:05] MED LIST changes: +CALC300T4 PO; +DEXT15CA28 PO; +DEXTROSE 50% 50 ML (IMS) SYR ONE
--- OUTSIDE RECORDS SUMMARY | 2017-05-16 11:11 | XMS REPORT | Continuity of Care Document ---
Author Author [employer] Organization [place] Address Unknown Phone Unavailable Care Team Providers Care Orthopedic Designer Name Role Phone [employer] Unavailable Unavailable Problems Problem Status Onset Date Classification Date Reported Comments Source No current problems or disability (context-dependent category) Active Problem 02/04/2015 [facility] Medications Medication Details Route Status Patient Instructions Ordering Provider Order Date Source Lamisil AT Athletes Foot *NF* Refill(s) 0 [facility] Benadryl 25 mg=1 capsule, PO, q6hr, Refill(s) 0 [facility] Lantus Solostar Pen 100 units/mL subcutaneous solution 5 ct box =30 unit, Subcutaneous, HS (bedtime), # 30 day(s), Refill(s) 5 [facility] tamoxifen 10 mg oral tablet 10 mg=1 tablet, PO, BID, # 60 tablet, Refill(s) 0, other reason (Rx) Active [facility] Glucagon Emergency Kit 1 kit, IM, 1 time only, Use for severe low blood glucose, # 2 kit, Refill(s) 1, Pharmacy: [facility]
</br>Use for severe low blood glucose Active [facility] Alcohol Swabs 1 EA, Topical, per protocol, 1 box of 300, # 1 box, Refill(s) 5, Pharmacy: [facility]
</br>1 box of 300 Active [facility] One Touch Ultra Test [id number] ct Box 1 strip, Finger Tip, Other-see comments, 10 times per day; 90 day, # 9 box, Refill(s) 0, called to pharmacy (Rx)
</br>10 times per day; 90 day Active [facility] HumaLOG 100 units/mL subcutaneous injection See Instructions, INJECT 70 UNITS SUBCUTANEOUSLY DAILY;90 day supply, # 70 mL, Refill(s) 0, called to pharmacy (Rx)
</br>INJECT 70 UNITS SUBCUTANEOUSLY DAILY;90 day supply Active [facility] tamoxifen 20 mg oral tablet 20 mg=1 tablet, PO, qDay, # 30 tablet, Refill(s) 5, Pharmacy: [facility] Active [facility] Pump Supplies 1 device, Other-(see comments), Other- see comments, Infusion sets 23" 6mm. Change infusion set and resevoir every 2 days as directed, x 90 day(s), Supply 90 day(s), Refill(s) 3, Pharmacy: [facility]
</br>Infusion sets 23" 6mm. Change infusion set and resevoir every 2 days as directed Active [facility] Humalog 100 units/mL subcutaneous injection 70 units, Subcutaneous, daily, x 30 day(s), # 3 vial, Refill(s) 5, Pharmacy: [facility] Inactive [facility] ONE TOUCH ULTRA BLUE TEST STP See Instructions, USE STRIPS 10 TIMES PER DAY, # 300 EA, Refill(s) 4, eRx: [facility]
</ br>USE STRIPS 10 TIMES PER DAY Active [facility] Blood Sugar Meter 1 device, Other-(see comments), Other-see comments, One touch ultra mini, # 1 device, Refill(s) 0, Pharmacy: [facility]
</br>One touch ultra mini Active [facility] Humalog KwikPen 100 units/mL subcutaneous injection = 40 unit, Subcutaneous, qDay, Refill(s) 5, Pharmacy: [facility] Active [facility] Allergies, Adverse Reactions, Alerts Substance Category Reaction Severity Reaction type Status Date Reported Comments Source [place] propensity to adverse reactions to substance Diarrhea Stop Substance: Moderate Adverse Reaction [facility] Immunizations Results Order Name Results Value Reference Range Date Interpretation Comments Source Hgb A1c POC Hemoglobin A1c (POC) 9.9 % 4.0 - 6.0 2014 [facility] Hgb A1c Hemoglobin A1c 7.4 % 4.0 - 6.0 02/04/2014 [facility] TTG-A R Transglutaminase IgA 4.14 unit(s) 0.00 - 19.99 NA Reference Ranges:< br/> <20 unit=Negative
20-40 unit=Indeterminate
>40 unit= Positive
[facility] TSH Alg D TSH 3.24 mcIU/mL 0.35 - 5.50 10/01/2013 NA [facility] Creat U Re Creatinine Ur Random 130.4 mg/dL 10/01/2013 [facility] mAlb w Cr Microalbumin Ur 25 mcg/mL 10/01/2013 [facility] IgA Historical IgA Historical 189.0 mg/dL 10/01/2013 NA Added by [employer]
[facility] Hgb A1c Hemoglobin A1c 7.9 % 4.0 - 6.0 10/01/2013 [facility] LDL/VLDL LDL 61 mg/dL 65 - 120 10/01/2013 LOW [facility] Lipid Tam Cholesterol Total 120 mg/dL 107 - 200 2013 [facility] Vital Signs Encounters Location Location Details Encounter Type Encounter Number Reason For Visit Attending Provider ADM Date DC Date Status Source CMB CMB REF [id number] f/u DM Adrienne South 05/28/2013 05/28/2013 [facility] CMB CMB REF [id number] labs Adrienne South 05/28/2013 05/28/2013 [facility] CMB CMB REF [id number] DM Elly Rosenbaum DO 10/01/20132013 [facility] CMB CMB REF [id number] labs Blanca [place] 10/01/2013 10/01/2013 [facility] CMB CMB REF [id number] DM Blanca [place] 02/04/2014 02/04/2014 [facility] CMB CMB REF [id number] labs Blanca [place] 02/04/2014 02/04/2014 Active [facility] CMB REF [id number] Adrienne South 02/03/20152014 Active [facility] CMB REF [id number] Adrienne South 02/03/20152014 Active [facility] Procedures Plan of Care Social History Assessment and Plan Family History Value Date Source Advance Directives Order Name Results Value Date Source
--- NOTE | 2017-05-16 11:22 | ED General ---
General Chief Complaint: Glucose Problems Stated Complaint: BLOOD SUGAR ISSUES Source of Information: Patient Exam Limitations: No Limitations History of Present Illness Time Seen by Provider: 11:20 Initial Comments To ER with reports of systems Gen. disorientation, weakness, feeling as though he is drunk. States the symptoms been present for a few hours. He is a type I diabetic with insulin pump. States that he did not eat breakfast this morning. Timing/Duration: 1-3 Hours Severity: Moderate Allergies and Home Medications Allergies Coded Allergies: No Known Drug Allergies (Unverified , 03/30/11) Home Medications Insulin Lispro 100 Unit/1 Ml Vial, PER INSULIN PUMP, (Reported) 1.6/hour BASAL Constitutional: see HPI EENTM: see HPI Respiratory: no symptoms reported Cardiovascular: no symptoms reported Genitourinary: no symptoms reported Musculoskeletal: no symptoms reported Skin: no symptoms reported Psychiatric/Neurological: No Symptoms Reported Hematologic/Lymphatic: No Symptoms Reported Immunological/Allergic: no symptoms reported Past Sfczisf-Ozdhsc-Qbqnxb Hx Patient Social History Drug of Choice: pot Type Used: Cigarettes 2nd Hand Smoke Exposure: Yes Recent Foreign Travel: No Contact w/Someone Who Travel: No Recent Hopitalizations: Yes (December) Immunizations Up To Date Tetanus Booster (TDap): Unknown PED Vaccines UTD: No Date of Pneumonia Vaccine: Jan 06, 2015 Seasonal Allergies Seasonal Allergies: Yes Surgeries History of Surgeries: Yes (urethral stretch) Respiratory History of Respiratory Disorde: No Currently Using CPAP: No Currently Using BIPAP: No Cardiovascular History of Cardiac Disorders: No Neurological History of Neurological Disord: No Reproductive System Hx Reproductive Disorders: No Sexually Transmitted Disease: No Genitourinary History of Genitourinary Disor: No Gastrointestinal History of Gastrointestinal Di: No Musculoskeletal History of Musculoskeletal Dis: No Endocrine History of Endocrine Disorders: Yes Endocrine Disorders: Diabetes, Insulin dep HEENT History of HEENT Disorders: No Cancer History of Cancer: No Psychosocial History of Psychiatric Problem: Yes Behavioral Health Disorders: Anxiety, Depression Integumentary History of Skin or Integumenta: No Blood Transfusions History of Blood Disorders: No Adverse Reaction to a Blood Tr: No Family Medical History Significant Family History: No Pertinent Family Hx Family Medial History: Patient reports no known family medical history. Physical Exam Vital Signs Vital Sign - Last 12Hours 05/16/17 11:05 Temp 97.2 Pulse 67 Resp 16 B/P (MAP) 129/84 Capillary Refill : General Appearance: No Apparent Distress, WD/WN Eyes: Bilateral Eye Normal Inspection, Bilateral Eye PERRL, Bilateral Eye EOMI HEENT: PERRL/EOMI, TMs Normal Neck: Full Range of Motion, Normal Inspection Respiratory: Normal Breath Sounds, No Accessory Muscle Use, No Respiratory Distress Cardiovascular: Regular Rate, Rhythm, Normal Peripheral Pulses Gastrointestinal: Normal Bowel Sounds, Non Tender, Soft Neurologic/Psychiatric: Alert, Oriented x3, No Motor/Sensory Deficits, Other ( initially disoriented, difficulty walking and standing straight. Was given one amp of D50 and the symptoms subsided. Initial blood sugar was 40.) Skin: Normal Color, Warm/Dry Progress/Results/Core Measures Results/Orders Lab Results Laboratory Tests Test 05/16/17 11:12 05/16/17 11:15 05/16/17 11:34 05/16/17 11:45 Range/Units Glucometer 40 *L 158 H 70-110 MG/DL White Blood Count 8.6 4.3-11.0 10^3/uL Red Blood Count 5.37 4.35-5.85 10^6/uL Hemoglobin 17.1 13.3-17.7 G/DL Hematocrit 48 40-54 % Mean Corpuscular Volume 90 80-99 FL Mean Corpuscular Hemoglobin 32 25-34 PG Mean Corpuscular Hemoglobin Concent 35 32-36 G/DL Red Cell Distribution Width 12.7 10.0-14.5 % Platelet Count 235 130-400 10^3/uL Mean Platelet Volume 10.8 H 7.4-10.4 FL Neutrophils (%) (Auto) 59 42-75 % Lymphocytes (%) (Auto) 32 12-44 % Monocytes (%) (Auto) 8 0-12 % Eosinophils (%) (Auto) 1 0-10 % Basophils (%) (Auto) 1 0-10 % Neutrophils # (Auto) 5.1 1.8-7.8 X 10^3 Lymphocytes # (Auto) 2.8 1.0-4.0 X 10^3 Monocytes # (Auto) 0.7 0.0-1.0 X 10^3 Eosinophils # (Auto) 0.1 0.0-0.3 10^3/uL Basophils # (Auto) 0.0 0.0-0.1 10^3/uL Sodium Level 139 135-145 MMOL/L Potassium Level 3.8 3.6-5.0 MMOL/L Chloride Level 103 98-107 MMOL/L Carbon Dioxide Level 23 21-32 MMOL/L Anion Gap 13 5-14 MMOL/L Blood Urea Nitrogen 7 7-18 MG/DL Creatinine 0.82 0.60-1.30 MG/DL Estimat Glomerular Filtration Rate > 60 BUN/Creatinine Ratio 9 Glucose Level 170 H 70-105 MG/DL Calcium Level 9.3 8.5-10.1 MG/DL Total Bilirubin 0.7 0.1-1.0 MG/DL Aspartate Amino Transf (AST/SGOT) 17 5-34 U/L Alanine Aminotransferase (ALT/SGPT) 10 0-55 U/L Alkaline Phosphatase 63 40-136 U/L Total Protein 7.5 6.4-8.2 GM/DL Albumin 4.7 H 3.2-4.5 GM/DL Serum Alcohol < 10 <10 MG/DL Test 05/16/17 12:02 Range/Units Urine Color YELLOW Urine Clarity CLEAR Urine pH 5 5-9 Urine Specific [place] 1.030 H 1.016-1.022 Urine Protein 2+ H NEGATIVE Urine Glucose (UA) 4+ H NEGATIVE Urine Ketones 4+ H NEGATIVE Urine Nitrite NEGATIVE NEGATIVE Urine Bilirubin NEGATIVE NEGATIVE Urine Urobilinogen NORMAL NORMAL MG/DL Urine Leukocyte Esterase 1+ H NEGATIVE Urine RBC (Auto) NEGATIVE NEGATIVE Urine RBC NONE /HPF Urine WBC RARE /HPF Urine Crystals NONE /LPF Urine Bacteria TRACE /HPF Urine Casts NONE /LPF Urine Mucus NEGATIVE /LPF Urine Culture Indicated NO Urine Opiates Screen NEGATIVE NEGATIVE Urine Oxycodone Screen NEGATIVE NEGATIVE Urine Methadone Screen NEGATIVE NEGATIVE Urine Propoxyphene Screen NEGATIVE NEGATIVE Urine Barbiturates Screen NEGATIVE NEGATIVE Ur Tricyclic Antidepressants Screen NEGATIVE NEGATIVE Urine Phencyclidine Screen NEGATIVE NEGATIVE Urine Amphetamines Screen NEGATIVE NEGATIVE Urine Methamphetamines Screen NEGATIVE NEGATIVE Urine Benzodiazepines Screen NEGATIVE NEGATIVE Urine Cocaine Screen NEGATIVE NEGATIVE Urine Cannabinoids Screen POSITIVE H NEGATIVE My Orders Orders - ADRIENNE SIMMONS APRN Cbc With Automated Diff (05/16/17 11:19) Comprehensive Metabolic Panel (05/16/17 11:19) Ua Culture If Indicated (05/16/17 11:19) Saline Lock/Iv-Start (05/16/17 11:19) Accucheck Stat ONCE (05/16/17 11:19) D50w (Emergency) Syringe (Dextrose 50% 5 (05/16/17 11:30) Alcohol (05/16/17 11:29) Drug Screen Stat (Urine) (05/16/17 11:29) General/Regular (05/16/17 Lunch) Medications Given in ED Current Medications Medications Dose Ordered Sig/Bhavin Route Start Time Stop Time Status Last Admin Dose Admin Dextrose 50 ml STK-MED ONCE .ROUTE 05/16/17 11:05 05/16/17 11:13 DC 05/16/17 11:15 50 ML Vital Signs/I&O Vital Sign - Last 12Hours 05/16/17 11:05 Temp 97.2 Pulse 67 Resp 16 B/P (MAP) 129/84 Departure Communication (Admissions) Progress Notes 1129- patient is more alert and more coherent but states that he still feels drunk. Impression Impression: Primary Impression: Hypoglycemia Disposition: 01 HOME, SELF-CARE Condition: Stable Departure-Patient Inst. Decision time for Depature: 11:22 Referrals: THOMAS BARNES MD (PCP/Family) Primary Care Physician Patient Instructions: HYPOGLYCEMIA Add. Discharge Instructions: 1. Check your sugars frequently today about every 2 hours. Adjust your insulin pump accordingly. Be sure and eat. 2. All discharge instructions reviewed with patient and/or family. Voiced understanding. ADRIENNE SIMMONS APRN May 16, 2017 11:22
[2017-05-16 11:25] LABS: BASOPHILS % (AUTO) 1 % (0-10); EOSINOPHILS # (AUTO) 0.1 10^3/uL (0.0-0.3); EOSINOPHILS % (AUTO) 1 % (0-10); LYMPHOCYTES # (AUTO) 2.8 X 10^3 (1.0-4.0); LYMPHOCYTES % (AUTO) 32 % (12-44); MEAN CORPUSCULAR HEMOGLOBIN 32 PG (25-34); MEAN CORPUSCULAR HGB CONC 35 G/DL (32-36); MEAN CORPUSCULAR VOLUME 90 FL (80-99); MEAN PLATELET VOLUME 10.8 FL (7.4-10.4); MONOCYTES # (AUTO) 0.7 X 10^3 (0.0-1.0); MONOCYTES % (AUTO) 8 % (0-12); NEUTROPHILS # (AUTO) 5.1 X 10^3 (1.8-7.8); NEUTROPHILS % (AUTO) 59 % (42-75); PLATELET COUNT 235 10^3/uL (130-400); RED BLOOD COUNT 5.37 10^6/uL (4.35-5.85); RED CELL DISTRIBUTION WIDTH 12.7 % (10.0-14.5); WHITE BLOOD COUNT 8.6 10^3/uL (4.3-11.0)
[2017-05-16] MEDS ORDERED: DEXTROSE 50% 50 ML (IMS) SYR IV ONE (11:30)
[2017-05-16 12:10] LABS: BILIRUBIN,URINE NEGATIVE (NEGATIVE); KETONES,URINE 4+ (NEGATIVE); LEUKOCYTE ESTERASE ,URINE 1+ (NEGATIVE); NITRITE,URINE NEGATIVE (NEGATIVE); PH,URINE 5 (5-9); PROTEIN,URINE 2+ (NEGATIVE); UROBILINOGEN,URINE NORMAL (NORMAL)
[2017-05-16 12:14] LABS: ALANINE AMINOTRANSFERASE 10 U/L (0-55); ALBUMIN 4.7 GM/DL (3.2-4.5); ALCOHOL < 10 MG/DL (<10); ANION GAP 13 MMOL/L (5-14); ASPARTATE AMINO TRANSFERASE 17 U/L (5-34); BILIRUBIN,TOTAL 0.7 MG/DL (0.1-1.0); BLOOD UREA NITROGEN 7 MG/DL (7-18); BUN/CREATININE RATIO 9; CALCIUM 9.3 MG/DL (8.5-10.1); CARBON DIOXIDE 23 MMOL/L (21-32); CHLORIDE 103 MMOL/L (98-107); CREATININE SERUM 0.82 MG/DL (0.60-1.30); GFR ESTIMATED > 60; GLUCOSE 170 MG/DL (70-105); POTASSIUM 3.8 MMOL/L (3.6-5.0); SODIUM 139 MMOL/L (135-145); TOTAL PROTEIN 7.5 GM/DL (6.4-8.2)
[2017-05-16 12:18] LABS: WBC,URINE RARE /HPF
== END 2017-05-16 12:36 | disposition home or self-care (01) ==
LOC: EDUNIT# 11:05 → ER 11:07
DX: E11.649 Type 2 diabetes mellitus with hypoglycemia without coma (principal); F41.9 Anxiety disorder, unspecified; F32.9 Major depressive disorder, single episode, unspecified; Z79.4 Long term (current) use of insulin
CPT/HCPCS: 36415; 80053; 80306; 80320; 81000; 82962; 85025; 96374

== ENCOUNTER 2017-05-21 23:46 | Emergency (ER) | payer OTHER ==
[~2017-05-21] VITALS: Ht 177.8 cm; Wt 72.6 kg
[~2017-05-21 23:46] MED LIST changes: -DEXTROSE 50% 50 ML (IMS) SYR ONE
--- OUTSIDE RECORDS SUMMARY | 2017-05-21 23:55 | XMS REPORT | Continuity of Care Document ---
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 Role Phone [employer] Unavailable Unavailable Problems Problem Status Onset Date Classification Date Reported Comments Source No current problems or disability (context-dependent category) Active Problem 02/04/2015 [facility] Medications Medication Details Route Status Patient Instructions Ordering Provider Order Date Source Lamisil AT Athletes Foot *NF* Refill(s) 0 [facility] Benadryl 25 mg=1 capsule, PO, q6hr, Refill(s) 0 [facility] Lantus Solostar Pen 100 units/mL subcutaneous solution 5 ct box =30 unit, Subcutaneous, HS (bedtime), # 30 day(s), Refill(s) 5 [facility] tamoxifen 10 mg oral tablet 10 mg=1 tablet, PO, BID, # 60 tablet, Refill(s) 0, other reason (Rx) Active [facility] Glucagon Emergency Kit 1 kit, IM, 1 time only, Use for severe low blood glucose, # 2 kit, Refill(s) 1, Pharmacy: [facility]
</br>Use for severe low blood glucose Active [facility] Alcohol Swabs 1 EA, Topical, per protocol, 1 box of 300, # 1 box, Refill(s) 5, Pharmacy: [facility]
</br>1 box of 300 Active [facility] One Touch Ultra Test [id number] ct Box 1 strip, Finger Tip, Other-see comments, 10 times per day; 90 day, # 9 box, Refill(s) 0, called to pharmacy (Rx)
</br>10 times per day; 90 day Active [facility] HumaLOG 100 units/mL subcutaneous injection See Instructions, INJECT 70 UNITS SUBCUTANEOUSLY DAILY;90 day supply, # 70 mL, Refill(s) 0, called to pharmacy (Rx)
</br>INJECT 70 UNITS SUBCUTANEOUSLY DAILY;90 day supply Active [facility] tamoxifen 20 mg oral tablet 20 mg=1 tablet, PO, qDay, # 30 tablet, Refill(s) 5, Pharmacy: [facility] Active [facility] Pump Supplies 1 device, Other-(see comments), Other- see comments, Infusion sets 23" 6mm. Change infusion set and resevoir every 2 days as directed, x 90 day(s), Supply 90 day(s), Refill(s) 3, Pharmacy: [facility]
</br>Infusion sets 23" 6mm. Change infusion set and resevoir every 2 days as directed Active [facility] Humalog 100 units/mL subcutaneous injection 70 units, Subcutaneous, daily, x 30 day(s), # 3 vial, Refill(s) 5, Pharmacy: [facility] [address] [facility] ONE TOUCH ULTRA BLUE TEST STP See Instructions, USE STRIPS 10 TIMES PER DAY, # 300 EA, Refill(s) 4, eRx: [facility]
</ br>USE STRIPS 10 TIMES PER DAY Active [facility] Blood Sugar Meter 1 device, Other-(see comments), Other-see comments, One touch ultra mini, # 1 device, Refill(s) 0, Pharmacy: [facility]
</br>One touch ultra mini Active [facility] Humalog KwikPen 100 units/mL subcutaneous injection = 40 unit, Subcutaneous, qDay, Refill(s) 5, Pharmacy: [facility] Active [facility] Allergies, Adverse Reactions, Alerts Substance Category Reaction Severity Reaction type Status Date Reported Comments Source [place] propensity to adverse reactions to substance Diarrhea Stop Substance: Moderate Adverse Reaction [facility] Immunizations Results Order Name Results Value Reference Range Date Interpretation Comments Source Hgb A1c POC Hemoglobin A1c (POC) 9.9 % 4.0 - 6.0 2014 [facility] Hgb A1c Hemoglobin A1c 7.4 % 4.0 - 6.0 02/04/2014 [facility] TTG-A R Transglutaminase IgA 4.14 unit(s) 0.00 - 19.99 NA Reference Ranges:< br/> <20 unit=Negative
20-40 unit=Indeterminate
>40 unit= Positive
[facility] TSH Alg D TSH 3.24 mcIU/mL 0.35 - 5.50 10/01/2013 NA [facility] Creat U Re Creatinine Ur Random 130.4 mg/dL 10/01/2013 [facility] mAlb w Cr Microalbumin Ur 25 mcg/mL 10/01/2013 [facility] IgA Historical IgA Historical 189.0 mg/dL 10/01/2013 NA Added by [employer]
[facility] Hgb A1c Hemoglobin A1c 7.9 % 4.0 - 6.0 10/01/2013 [facility] LDL/VLDL LDL 61 mg/dL 65 - 120 10/01/2013 LOW [facility] Lipid Tam Cholesterol Total 120 mg/dL 107 - 200 2013 [facility] Vital Signs Encounters Location Location Details Encounter Type Encounter Number Reason For Visit Attending Provider ADM Date DC Date Status Source CMB CMB REF [id number] f/u DM Adrienne South 05/28/2013 05/28/2013 [facility] CMB CMB REF [id number] labs Adrienne South 05/28/2013 05/28/2013 [facility] CMB CMB REF [id number] DM Elly Rosenbaum DO 10/01/20132013 [facility] CMB CMB REF [id number] labs Blanca [place] 10/01/2013 10/01/2013 [facility] CMB CMB REF [id number] DM Blanca [place] 02/04/2014 02/04/2014 [facility] CMB CMB REF [id number] labs Blanca [place] 02/04/2014 02/04/2014 Active [facility] CMB REF [id number] Adrienne South 02/03/20152014 Active [facility] CMB REF [id number] Adrienne South 02/03/20152014 Active [facility] Procedures Plan of Care Social History Assessment and Plan Family History Value Date Source Advance Directives Order Name Results Value Date Source
[2017-05-22] MEDS ORDERED: NS IV 1000 ML 2,000 ML ONE (00:18)
[2017-05-22] MEDS ORDERED: NS IV 1000 ML 1,000 ML IV ONE (00:24)
[2017-05-22] MEDS ORDERED: fentaNYL INJECTION 100 MCG/2 ML AMP IVP ONE ×2 (00:30→02:00)
[2017-05-22] MEDS ORDERED: ONDANSETRON 4 MG/2 ML (SDV) Z0FRAN IVP ONE ×2 (00:30→02:00)
[2017-05-22] MEDS ORDERED: NS IV 1000 ML 1,000 ML IV SCH (00:30)
--- NOTE | 2017-05-22 00:30 | ED Abdominal Pain ---
General Stated Complaint: BACK PAIN,NAUSEA Source of Information: Patient, Family (brother), Other Exam Limitations: Other (clinical condition) History of Present Illness Time Seen By Provider: 00:20 Initial Comments Patient presents to ER with her brother and brother's roommate by private conveyance with a chief complaint is having some abdominal pain, nausea, back pain that started about a day ago. He's had no cough shortness of breath or chest pain. He has a history of type 1 diabetes on insulin pump has been using his Humalog 3 times a day as prescribed. He is not aware of his blood sugar however he feels very tired and weak. He's had no other recent illnesses or injuries. He has not taken anything for his pain. He follows up with an contract preparer in [place]. The patient states he has had DKA in the past. A few weeks ago he was in the ER for hypoglycemia. He says his insulin pump has been working as far she knows and has not ran out of insulin. Allergies and Home Medications Allergies Coded Allergies: No Known Drug Allergies (Unverified , 03/30/11) Home Medications Insulin Lispro 100 Unit/1 Ml Vial, PER INSULIN PUMP, (Reported) 1.6/hour BASAL Review of Systems Constitutional: No chills, No diaphoresis, dizziness, No fever, malaise EENTM: No Blurred Vision, No Double Vision Respiratory: Denies Cough, Denies Shortness of Air Cardiovascular: Denies Chest Pain, Denies Edema Gastrointestinal: Denies Abdomen Distended, Abdominal Pain, Denies Constipated , Denies Diarrhea, Nausea, Vomiting Genitourinary: Denies Burning, Denies Discharge Musculoskeletal: see HPI, back pain, No joint pain Skin: No pruritus, No rash Psychiatric/Neurological: Denies Headache, Denies Numbness, Denies Paresthesia Past Xhxacwu-Fgyzyd-Vxqqsc Hx Patient Social History Alcohol Use: Denies Use Recreational Drug Use: No Drug of Choice: pot Smoking Status: Current Everyday Smoker Type Used: Cigarettes (0.25 ppd) 2nd Hand Smoke Exposure: Yes Recent Foreign Travel: No Contact w/Someone Who Travel: No Recent Hopitalizations: Yes (JANUARY 2017 DKA ) Immunizations Up To Date Tetanus Booster (TDap): Unknown PED Vaccines UTD: No Date of Pneumonia Vaccine: Jan 06, 2015 Seasonal Allergies Seasonal Allergies: Yes Surgeries History of Surgeries: Yes (urethral stretch) Respiratory History of Respiratory Disorde: No Currently Using CPAP: No Currently Using BIPAP: No Cardiovascular History of Cardiac Disorders: No Neurological History of Neurological Disord: No Reproductive System Hx Reproductive Disorders: No Sexually Transmitted Disease: No Genitourinary History of Genitourinary Disor: No Gastrointestinal History of Gastrointestinal Di: No Musculoskeletal History of Musculoskeletal Dis: No Endocrine History of Endocrine Disorders: Yes (type I diabetes) Endocrine Disorders: Diabetes, Insulin dep HEENT History of HEENT Disorders: No Cancer History of Cancer: No Did You Recieve Any Treatments: No Psychosocial History of Psychiatric Problem: Yes Behavioral Health Disorders: Anxiety, Depression Integumentary History of Skin or Integumenta: No Blood Transfusions History of Blood Disorders: No Adverse Reaction to a Blood Tr: No Family Medical History Significant Family History: No Pertinent Family Hx Family Medial History: Patient reports no known family medical history. Physical Exam Vital Signs VS - Last 72 Hours, by Label 05/22/17 00:00 Temp 96.9 Pulse 115 Resp 24 B/P (MAP) 133/87 O2 Delivery Room Air Capillary Refill : General Appearance: moderate distress, thin HEENT: PERRL/EOMI, normal ENT inspection, TMs normal, pharynx normal (oral mucosa is dry) Neck: non-tender, full range of motion, normal inspection Respiratory: chest non-tender, lungs clear, normal breath sounds Cardiovascular: normal peripheral pulses, regular rate, rhythm, no edema Gastrointestinal: normal bowel sounds, soft, tenderness (diffusely) Extremities: normal range of motion, normal inspection, no pedal edema, normal capillary refill Neurologic/Psychiatric: alert, oriented x 3, other (somnolent) Skin: normal color, warm/dry Focused Exam Evaluation Lactate Level Laboratory Tests 05/22/17 00:28: Lactic Acid Level Laboratory Tests Test 05/22/17 00:28 Progress/Results/Core Measures Results/Orders Lab Results Laboratory Tests Test 05/22/17 00:18 05/22/17 00:28 05/22/17 00:33 Range/Units White Blood Count 43.5 *H 4.3-11.0 10^3/uL Red Blood Count 4.98 4.35-5.85 10^6/uL Hemoglobin 16.0 13.3-17.7 G/DL Hematocrit 45 40-54 % Mean Corpuscular Volume 91 80-99 FL Mean Corpuscular Hemoglobin 32 25-34 PG Mean Corpuscular Hemoglobin Concent 36 32-36 G/DL Red Cell Distribution Width 12.9 10.0-14.5 % Platelet Count 377 130-400 10^3/uL Mean Platelet Volume 10.8 H 7.4-10.4 FL Neutrophils (%) (Auto) 79 H 42-75 % Lymphocytes (%) (Auto) 13 12-44 % Monocytes (%) (Auto) 8 0-12 % Eosinophils (%) (Auto) 0 0-10 % Basophils (%) (Auto) 0 0-10 % Neutrophils # (Auto) 34.2 H 1.8-7.8 X 10^3 Lymphocytes # (Auto) 5.7 H 1.0-4.0 X 10^3 Monocytes # (Auto) 3.5 H 0.0-1.0 X 10^3 Eosinophils # (Auto) 0.0 0.0-0.3 10^3/uL Basophils # (Auto) 0.1 0.0-0.1 10^3/uL Neutrophils % (Manual) 72 % Lymphocytes % (Manual) 11 % Monocytes % (Manual) 7 % Eosinophils % (Manual) 0 % Basophils % (Manual) 0 % Metamyelocytes % 1 % Band Neutrophils 3 % Reactive Lymphocytes 6 % Toxic Granulation 1+ Blood Morphology Comment NORMAL Thyroid Stimulating Hormone (TSH) 0.64 0.35-4.94 UIU/ML Blood Gas Puncture Site R RAD Blood Gas Patient Temperature 96.9 Arterial Blood pH 7.18 *L 7.37-7.43 Arterial Blood Partial Pressure CO2 20 L 35-45 MMHG Arterial Blood Partial Pressure O2 101 H 79-93 MMHG Arterial Blood HCO3 7 *L 23-27 MMOL/L Arterial Blood Total CO2 7.8 L 21.0-31.0 MMOL/L Arterial Blood Oxygen Saturation 98 94-100 % Arterial Blood Base Excess -19.8 L -2.5-2.5 MMOL/L Alfredo Test YES-POS Blood Gas Ventilator Setting NO Blood Gas Inspired Oxygen RA My Orders Orders - MARIO MCCLENDON Ns Iv 1000 Ml (Sodium Chloride 0.9%) (05/22/17 00:18) Cbc With Automated Diff (05/22/17 00:24) Comprehensive Metabolic Panel (05/22/17 00:24) Drug Screen Stat (Urine) (05/22/17 00:24) Lactic Acid Analyzer (05/22/17 00:24) Magnesium (05/22/17 00:24) Thyroid Stimulating Hormone (05/22/17 00:24) Ua Culture If Indicated (05/22/17 00:24) Blood Culture (05/22/17 00:24) Chest 1 View, Ap/Pa Only (05/22/17 00:24) Saline Lock/Iv-Start (05/22/17 00:24) Ns Iv 1000 Ml (Sodium Chloride 0.9%) (05/22/17 00:24) Accucheck Stat ONCE (05/22/17 00:24) Accucheck Stat ONCE (05/22/17 00:24) Ns Iv 1000 Ml (Sodium Chloride 0.9%) (05/22/17 00:30) Fentanyl Injection (Sublimaze Injection (05/22/17 00:30) Ondansetron Injection (Zofran Injectio (05/22/17 00:30) Arterial Blood Gas (05/22/17 00:33) Manual Differential (05/22/17 00:18) Ns W/Kcl 40 Meq/L (Ns Iv W/Kcl 40 Meq/L) (05/22/17 01:15) Piperacillin Sodium/Tazobactam (Zosyn Vi (05/22/17 01:15) Ondansetron Injection (Zofran Injectio (05/22/17 02:00) Fentanyl Injection (Sublimaze Injection (05/22/17 02:00) Medications Given in ED Current Medications Medications Dose Ordered Sig/Bhavin Route Start Time Stop Time Status Last Admin Dose Admin Fentanyl Citrate 25 mcg ONCE ONCE IVP 05/22/17 02:00 05/22/17 02:01 DC 05/22/17 01:57 25 MCG Fentanyl Citrate 50 mcg ONCE ONCE IVP 05/22/17 00:30 05/22/17 00:31 DC 05/22/17 00:39 50 MCG Ondansetron HCl 4 mg ONCE ONCE IVP 05/22/17 00:30 05/22/17 00:31 DC 05/22/17 00:38 4 MG Ondansetron HCl 4 mg ONCE ONCE IVP 05/22/17 02:00 05/22/17 02:01 DC 11/15/17 01:57 4 MG Piperacillin Sod/ Tazobactam Sod 4.5 gm/Sodium Chloride 100 ml @ 200 mls/hr ONCE ONCE IV 05/22/17 01:15 05/22/17 01:45 DC 05/22/17 02:05 200 MLS/HR Sodium Chloride 1,000 ml @ 0 mls/hr Q0M ONCE IV 05/22/17 00:24 05/22/17 00:28 DC 05/22/17 00:35 999 MLS/HR Vital Signs/I&O Vital Sign - Last 12Hours 05/22/17 00:00 Temp 96.9 Pulse 115 Resp 24 B/P (MAP) 133/87 O2 Delivery Room Air Point of Care Testing Finger Stick Blood Glucose: 592 Blood Glucose Action Taken: REPEAT REQUESTED BY DOCTOR, RN AND DOCTOR NOTIFIED Progress Note #1: Time: 01:09 Progress Note DKA. There is a problem with the chemistry lab so did not note his potassium is yet but were going start some fluids with potassium in the afternoon do not get results from lab soon we will go ahead and give him 10 units of regular insulin. Progress Note #2: Time: 02:12 Progress Note I'm informed may be several hours before chemistry lab is able to be available. We will go ahead and transfer him to [place] ER to ER transfer so he can get laboratory and get started with insulin as appropriate. Progress Note #3: Time: 02:59 Progress Note Lab is still not available and the patient is being loaded on transport by EMS to go to [place] ER. Says his pain is much improved after the narcotics and nausea is almost gone. Lactate is 4.28. We will continue the IV fluids on the way to [place]. Diagnostic Imaging Diagonstic Imaging: Xray Plain Films/CT/US/NM/MRI: chest Comments No acute cardiopulmonary process noted on one view chest x-ray. Reviewed: Reviewed by Me Departure Impression Impression: Primary Impression: DKA (diabetic ketoacidoses) Qualified Codes: E10.10 - Type 1 diabetes mellitus with ketoacidosis without coma Disposition: XF SHT-TRM HOSP Condition: Critical Transfer Time Spoke to Accepting Phy: 02:14 Transfer Progress Notes ED to ED Xfer: Spoke with Dr. Schafer in the ER and he will accept the patient when they arrived. Report number [id number]. Transfer Time: 03:00 Transfer Facility: [facility] Method of Transfer: EMS ([facility]) Departure-Patient Inst. Referrals: THOMAS BARNES MD (PCP) Primary Care Physician SHASHANK JOSHI DO (Family) Primary Care Physician Copy Copies To 1: JAMIA RIGGINS TITUS J May 22, 2017 00:30
[2017-05-22 00:39] LABS: BASOPHILS # (AUTO) 0.1 10^3/uL (0.0-0.1); BASOPHILS % (AUTO) 0 % (0-10); EOSINOPHILS % (AUTO) 0 % (0-10); LYMPHOCYTES # (AUTO) 5.7 X 10^3 (1.0-4.0); LYMPHOCYTES % (AUTO) 13 % (12-44); MEAN CORPUSCULAR HEMOGLOBIN 32 PG (25-34); MEAN CORPUSCULAR HGB CONC 36 G/DL (32-36); MEAN CORPUSCULAR VOLUME 91 FL (80-99); MEAN PLATELET VOLUME 10.8 FL (7.4-10.4); MONOCYTES # (AUTO) 3.5 X 10^3 (0.0-1.0); MONOCYTES % (AUTO) 8 % (0-12); NEUTROPHILS # (AUTO) 34.2 X 10^3 (1.8-7.8); NEUTROPHILS % (AUTO) 79 % (42-75); PLATELET COUNT 377 10^3/uL (130-400); RED BLOOD COUNT 4.98 10^6/uL (4.35-5.85); RED CELL DISTRIBUTION WIDTH 12.9 % (10.0-14.5)
[2017-05-22 00:40] LABS: ABG BASE EXCESS -19.8 MMOL/L (-2.5-2.5); ABG OXYGEN SATURATION 98 % (94-100); ABG PCO2 20 MMHG (35-45); ABG PO2 101 MMHG (79-93); ABG TCO2 7.8 MMOL/L (21.0-31.0)
[2017-05-22 00:41] LABS: ALLENS TEST YES-POS; PATIENT TEMP 96.9
[2017-05-22 00:45] LABS: WHITE BLOOD COUNT 43.5 10^3/uL (4.3-11.0)
[2017-05-22 00:45] LABS: ABG HCO3 7 MMOL/L (23-27); ABG PH 7.18 (7.37-7.43)
[2017-05-22 01:01] LABS: BAND NEUTROPHILS 3 %; BASOPHILS % (MANUAL) 0 %; EOSINOPHILS % (MANUAL) 0 %; LYMPHOCYTES % (MANUAL) 11 %; METAMYELOCYTES % 1 %; NEUTROPHILS % (MANUAL) 72 %
[2017-05-22 01:02] LABS: REACTIVE LYMPHOCYTES 6 %
[2017-05-22] MEDS ORDERED: PIPERACILLIN SODIUM/TAZOBACTAM 4.5 GM in NS (IVPB) 100 ML IV ONE (01:15)
[2017-05-22] MEDS ORDERED: NS W/KCL 40 MEQ/L 1,000 ML IV SCH (01:15)
[2017-05-22 02:01] LABS: THYROID STIMULATING HORMONE 0.64 UIU/ML (0.35-4.94)
[2017-05-22 03:00] VITALS: BP 116/73
[2017-05-22 03:06] LABS: ALBUMIN 5.1 GM/DL (3.2-4.5); BILIRUBIN,TOTAL 0.4 MG/DL (0.1-1.0); CALCIUM 9.6 MG/DL (8.5-10.1); CREATININE SERUM 2.19 MG/DL (0.60-1.30); MAGNESIUM 3.1 MG/DL (1.8-2.4); POTASSIUM 4.2 MMOL/L (3.6-5.0); TOTAL PROTEIN 8.3 GM/DL (6.4-8.2)
[2017-05-22 03:12] LABS: BILIRUBIN,URINE NEGATIVE (NEGATIVE); KETONES,URINE 4+ (NEGATIVE); LEUKOCYTE ESTERASE ,URINE NEGATIVE (NEGATIVE); NITRITE,URINE NEGATIVE (NEGATIVE); PH,URINE 5 (5-9); PROTEIN,URINE 2+ (NEGATIVE); UROBILINOGEN,URINE NORMAL (NORMAL)
[2017-05-22 03:24] LABS: SQUAMOUS EPITHELIAL CELL,UR RARE /HPF
--- NOTE | 2017-05-22 07:22 | Diagnostic Imaging Report ---
INDICATION: Elevated blood sugar. Comparison with 01/07/2017. FINDINGS: Portable chest shows the lungs to be well-aerated and clear. Heart is not enlarged. No evidence of pulmonary edema. No hilar adenopathy. No pneumothorax or pleural effusion. No bony abnormalities. IMPRESSION: Normal portable chest. Dictated by: Dictated on workstation # [id number]
== END 2017-05-22 03:00 | disposition short-term general hospital (02) ==
LOC: EDUNIT# 23:46 → ER 23:50
DX: E10.10 Type 1 diabetes mellitus with ketoacidosis without coma (principal); F41.9 Anxiety disorder, unspecified; F32.9 Major depressive disorder, single episode, unspecified; F17.210 Nicotine dependence, cigarettes, uncomplicated
CPT/HCPCS: 36415; 71010; 80053; 80306; 81000; 82805; 82962; 83605; 83735; 84443; 85007; 85027; 87040

== ENCOUNTER 2017-12-25 13:57 | Observation (INO) | payer OTHER ==
[~2017-12-25] VITALS: Ht 193 cm; Wt 77.1 kg
[2017-12-25] VITALS (7 sets, daily range): BP systolic 102–120; BP diastolic 56–79
--- NOTE | 2017-12-25 14:06 | ED General ---
General Stated Complaint: N/V DIABETES Source of Information: Patient, EMS Exam Limitations: No Limitations History of Present Illness Date Seen by Provider: Dec 25, 2017 Time Seen by Provider: 14:03 Initial Comments this type I diabetic male presents to ER with complaints of possible DKA. He states that he has a dysfunctional insulin pump and has been having to use insulin via needle. He bases this on food intake but does not actually check his blood sugars. He's only had 5 units subcutaneous today. He states it is been feeling very poorly today with aching all over, nausea or vomiting. He does not know who his primary care provider is. Timing/Duration: 12-24 Hours Severity: Moderate Associated Systoms: Nausea/Vomiting Allergies and Home Medications Allergies Coded Allergies: No Known Drug Allergies (Unverified , 03/30/11) Home Medications Insulin Lispro 100 Unit/1 Ml Vial, PER INSULIN PUMP, (Reported) 1.6/hour BASAL Patient Home Medication List Home Medication List Reviewed: Yes Review of Systems Constitutional: see HPI EENTM: no symptoms reported Respiratory: see HPI Cardiovascular: see HPI Genitourinary: see HPI Musculoskeletal: see HPI Skin: no symptoms reported Psychiatric/Neurological: No Symptoms Reported Hematologic/Lymphatic: No Symptoms Reported Immunological/Allergic: no symptoms reported Past Aqgdrwh-Fszfax-Qxryiz Hx Patient Social History Drug of Choice: pot Type Used: Cigarettes 2nd Hand Smoke Exposure: Yes Recent Hopitalizations: Yes (JANUARY 2017 DKA ) Immunizations Up To Date Tetanus Booster (TDap): Unknown PED Vaccines UTD: No Date of Pneumonia Vaccine: Jan 06, 2015 Seasonal Allergies Seasonal Allergies: Yes Past Medical History Surgeries: Yes (urethral stretch) Respiratory: No Currently Using CPAP: No Currently Using BIPAP: No Cardiac: No Neurological: No Reproductive Disorders: No Sexually Transmitted Disease: No Genitourinary: No Gastrointestinal: No Musculoskeletal: No Endocrine: Yes (Type I diabetes) Diabetes, Insulin dep HEENT: No Cancer: No Did You Recieve Any Treatments: No Psychosocial: Yes Anxiety, Depression Integumentary: No Blood Disorders: No Adverse Reaction/Blood Tranf: No Family Medical History Patient reports no known family medical history. No Pertinent Family Hx Physical Exam Vital Signs Vital Signs - First Documented 12/25/17 12/25/17 14:01 15:00 Temp 98.0 Pulse 92 Resp 18 B/P (MAP) 107/79 (88) Pulse Ox 98 O2 Delivery Room Air Capillary Refill : General Appearance: No Apparent Distress, WD/WN, Other (rithing in bed, unable to sit still.) Eyes: Bilateral Eye Normal Inspection, Bilateral Eye PERRL HEENT: PERRL/EOMI, TMs Normal Neck: Full Range of Motion, Normal Inspection Respiratory: No Accessory Muscle Use, No Respiratory Distress, Other (deep heavy breathing noted) Cardiovascular: Regular Rate, Rhythm, Normal Peripheral Pulses Gastrointestinal: Normal Bowel Sounds, Non Tender, Soft Extremity: Normal Capillary Refill, Normal Inspection Neurologic/Psychiatric: Alert, Oriented x3, No Motor/Sensory Deficits Skin: Normal Color, Warm/Dry Progress/Results/Core Measures Suspected Sepsis SIRS Temperature: Pulse: Respiratory Rate: Laboratory Tests 12/25/17 14:01: White Blood Count 11.9H Blood Pressure / Mean: Laboratory Tests 12/25/17 14:01: Platelet Count 251, Total Bilirubin 1.0 12/25/17 16:45: Creatinine 0.97 12/25/17 20:25: Creatinine 0.85 12/25/17 22:05: Results/Orders Lab Results Laboratory Tests Test 12/25/17 14:01 12/25/17 14:15 12/25/17 14:25 12/25/17 15:29 Range/Units White Blood Count 11.9 H 4.3-11.0 10^3/uL Red Blood Count 4.78 4.35-5.85 10^6/uL Hemoglobin 15.4 13.3-17.7 G/DL Hematocrit 43 40-54 % Mean Corpuscular Volume 89 80-99 FL Mean Corpuscular Hemoglobin 32 25-34 PG Mean Corpuscular Hemoglobin Concent 36 32-36 G/DL Red Cell Distribution Width 12.6 10.0-14.5 % Platelet Count 251 130-400 10^3/uL Mean Platelet Volume 12.0 H 7.4-10.4 FL Neutrophils (%) (Auto) 62 42-75 % Lymphocytes (%) (Auto) 31 12-44 % Monocytes (%) (Auto) 6 0-12 % Eosinophils (%) (Auto) 0 0-10 % Basophils (%) (Auto) 1 0-10 % Neutrophils # (Auto) 7.3 1.8-7.8 X 10^3 Lymphocytes # (Auto) 3.7 1.0-4.0 X 10^3 Monocytes # (Auto) 0.7 0.0-1.0 X 10^3 Eosinophils # (Auto) 0.0 0.0-0.3 10^3/uL Basophils # (Auto) 0.1 0.0-0.1 10^3/uL Sodium Level 140 135-145 MMOL/L Potassium Level 4.0 3.6-5.0 MMOL/L Chloride Level 105 98-107 MMOL/L Carbon Dioxide Level 10 L 21-32 MMOL/L Anion Gap 25 H 5-14 MMOL/L Blood Urea Nitrogen 16 7-18 MG/DL Creatinine 1.00 0.60-1.30 MG/DL Estimat Glomerular Filtration Rate > 60 BUN/Creatinine Ratio 16 Glucose Level 341 H 70-105 MG/DL Calcium Level 9.7 8.5-10.1 MG/DL Total Bilirubin 1.0 0.1-1.0 MG/DL Aspartate Amino Transf (AST/SGOT) 14 5-34 U/L Alanine Aminotransferase (ALT/SGPT) 13 0-55 U/L Alkaline Phosphatase 65 40-136 U/L Total Protein 7.2 6.4-8.2 GM/DL Albumin 4.7 H 3.2-4.5 GM/DL Serum Alcohol < 10 <10 MG/DL Blood Gas Puncture Site R RAD Blood Gas Patient Temperature 98.5 Arterial Blood pH 7.35 L 7.37-7.43 Arterial Blood Partial Pressure CO2 21 L 35-45 MMHG Arterial Blood Partial Pressure O2 117 H 79-93 MMHG Arterial Blood HCO3 11 *L 23-27 MMOL/L Arterial Blood Total CO2 12.0 L 21.0-31.0 MMOL/L Arterial Blood Oxygen Saturation 99 94-100 % Arterial Blood Base Excess -13.3 L -2.5-2.5 MMOL/L Alfredo Test YES-POS Blood Gas Ventilator Setting NO Blood Gas Inspired Oxygen RA Glucometer 322 H 70-110 MG/DL Urine Color YELLOW Urine Clarity CLEAR Urine pH 5 5-9 Urine Specific [place] 1.020 1.016-1.022 Urine Protein 1+ H NEGATIVE Urine Glucose (UA) 4+ H NEGATIVE Urine Ketones 4+ H NEGATIVE Urine Nitrite NEGATIVE NEGATIVE Urine Bilirubin NEGATIVE NEGATIVE Urine Urobilinogen NORMAL NORMAL MG/DL Urine Leukocyte Esterase NEGATIVE NEGATIVE Urine RBC (Auto) NEGATIVE NEGATIVE Urine RBC NONE /HPF Urine WBC NONE /HPF Urine Squamous Epithelial Cells RARE /HPF Urine Crystals NONE /LPF Urine Bacteria NONE /HPF Urine Casts NONE /LPF Urine Mucus NEGATIVE /LPF Urine Culture Indicated NO Urine Opiates Screen NEGATIVE NEGATIVE Urine Oxycodone Screen NEGATIVE NEGATIVE Urine Methadone Screen NEGATIVE NEGATIVE Urine Propoxyphene Screen NEGATIVE NEGATIVE Urine Barbiturates Screen NEGATIVE NEGATIVE Ur Tricyclic Antidepressants Screen NEGATIVE NEGATIVE Urine Phencyclidine Screen NEGATIVE NEGATIVE Urine Amphetamines Screen NEGATIVE NEGATIVE Urine Methamphetamines Screen NEGATIVE NEGATIVE Urine Benzodiazepines Screen NEGATIVE NEGATIVE Urine Cocaine Screen NEGATIVE NEGATIVE Urine Cannabinoids Screen POSITIVE H NEGATIVE Test 12/25/17 15:39 12/25/17 16:45 12/25/17 18:05 12/25/17 19:44 Range/Units Glucometer 309 H 200 H 228 H 70-110 MG/DL Sodium Level 141 135-145 MMOL/L Potassium Level 3.7 3.6-5.0 MMOL/L Chloride Level 112 H 98-107 MMOL/L Carbon Dioxide Level 14 L 21-32 MMOL/L Anion Gap 15 H 5-14 MMOL/L Blood Urea Nitrogen 15 7-18 MG/DL Creatinine 0.97 0.60-1.30 MG/DL Estimat Glomerular Filtration Rate > 60 BUN/Creatinine Ratio 15 Glucose Level 231 H 70-105 MG/DL Calcium Level 8.2 L 8.5-10.1 MG/DL Test 12/25/17 20:25 12/25/17 20:47 12/25/17 21:41 12/25/17 22:05 Range/Units Sodium Level 140 135-145 MMOL/L Potassium Level 3.8 3.6-5.0 MMOL/L Chloride Level 110 H 98-107 MMOL/L Carbon Dioxide Level 20 L 21-32 MMOL/L Anion Gap 10 5-14 MMOL/L Blood Urea Nitrogen 13 7-18 MG/DL Creatinine 0.85 0.60-1.30 MG/DL Estimat Glomerular Filtration Rate > 60 BUN/Creatinine Ratio 15 Glucose Level 177 H 70-105 MG/DL Calcium Level 8.2 L 8.5-10.1 MG/DL Glucometer 175 H 220 H 70-110 MG/DL My Orders Orders - ADRIENNE SIMMONS SENIOR OPERATIONS MANAGER Cbc With Automated Diff (12/25/17 14:02) Comprehensive Metabolic Panel (12/25/17 14:02) Ua Culture If Indicated (12/25/17 14:02) Drug Screen Stat (Urine) (12/25/17 14:02) Iv Heplock-Insert (Order) (12/25/17 14:02) Beta Hydroxybutyrate (12/25/17 14:02) Accucheck Stat ONCE (12/25/17 14:02) Lorazepam Injection (Ativan Injection) (12/25/17 14:15) Ondansetron Injection (Zofran Injectio (12/25/17 14:15) Ns Iv 1000 Ml (Sodium Chloride 0.9%) (12/25/17 14:15) Arterial Blood Gas (12/25/17 14:19) Insulin (Regular) Human (Humulin R (Per (12/25/17 14:45) D5 Ns 1000 Ml Iv Solution (Dextrose 5%/0 (12/25/17 14:45) Accucheck Stat ONCE (12/25/17 14:40) Alcohol (12/25/17 14:50) Chest 1 View, Ap/Pa Only (12/25/17 14:50) Insulin (Regular) Human (Humulin R (Per (12/25/17 15:45) Ns Iv 1000 Ml (Sodium Chloride 0.9%) (12/25/17 16:00) Basic Metabolic Panel (12/25/17 16:38) Insulin Regular Tpn/Drip Only (Humulin R (12/25/17 16:45) Cho 75g/M 0snack (21-2400 [place]) (12/25/17 Dinner) Disposal Tray (Paper/Plastic) (12/25/17 17:26) D5 1/2 Ns W/Kcl 20 Meq/L (Dextrose 5%/0. (12/25/17 17:45) Accucheck Achs ACHS (12/25/17 17:48) Accucheck Stat ONCE (12/25/17 18:50) Medications Given in ED Current Medications Medications Dose Ordered Sig/Bhavin Route Start Time Stop Time Status Last Admin Dose Admin Lorazepam 0.5 mg ONCE ONCE IVP 12/25/17 14:15 12/25/17 14:16 DC 12/25/17 14:21 0.5 MG Ondansetron HCl 4 mg ONCE ONCE IVP 12/25/17 14:15 12/25/17 14:16 DC 12/25/17 14:21 4 MG Vital Signs/I&O 12/25/17 12/25/17 12/25/17 12/25/17 14:01 15:00 16:24 17:08 Temp 98.0 Pulse 92 104 94 88 Resp 18 18 18 B/P (MAP) 107/79 (88) 107/79 (88) 108/56 (73) 120/64 (82) Pulse Ox 98 96 99 99 O2 Delivery Room Air Room Air Room Air Room Air 12/25/17 12/25/17 18:00 19:00 Temp 98.4 Pulse 89 89 Resp 18 18 B/P (MAP) 109/54 116/57 (76) Pulse Ox 98 99 O2 Delivery Room Air Room Air Capillary Refill : Departure Communication (Admissions) he received 1 L of normal saline bolus by EMS and a second and third liter of normal saline bolus here in the emergency room. He also received 10 units of regular insulin IV in 2 separate doses of 5 units each. At this time (1550) he is feeling much better. Impression Primary Impression: DKA (diabetic ketoacidoses) Disposition: ADMITTED INPATIENT Condition: Critical Admissions Decision to Admit Reason: Admit from ER (General) Decision to Admit/Date: Dec 25, 2017 Time/Decision to Admit Time: 14:06 Departure-Patient Inst. Referrals: [facility] (PCP/Family) Primary Care Physician ADRIENNE SIMMONS APRN Dec 25, 2017 14:06
[2017-12-25 14:13] LABS: BASOPHILS # (AUTO) 0.1 10^3/uL (0.0-0.1); BASOPHILS % (AUTO) 1 % (0-10); EOSINOPHILS % (AUTO) 0 % (0-10); HEMATOCRIT 43 % (40-54); HEMOGLOBIN 15.4 G/DL (13.3-17.7); LYMPHOCYTES # (AUTO) 3.7 X 10^3 (1.0-4.0); LYMPHOCYTES % (AUTO) 31 % (12-44); MEAN CORPUSCULAR HEMOGLOBIN 32 PG (25-34); MEAN CORPUSCULAR HGB CONC 36 G/DL (32-36); MEAN CORPUSCULAR VOLUME 89 FL (80-99); MONOCYTES # (AUTO) 0.7 X 10^3 (0.0-1.0); MONOCYTES % (AUTO) 6 % (0-12); NEUTROPHILS # (AUTO) 7.3 X 10^3 (1.8-7.8); NEUTROPHILS % (AUTO) 62 % (42-75); PLATELET COUNT 251 10^3/uL (130-400); RED BLOOD COUNT 4.78 10^6/uL (4.35-5.85); RED CELL DISTRIBUTION WIDTH 12.6 % (10.0-14.5); WHITE BLOOD COUNT 11.9 10^3/uL (4.3-11.0)
[2017-12-25] MEDS ORDERED: NS IV 1000 ML 1,000 ML IV SCH ×2 (14:15→16:00)
[2017-12-25] MEDS ORDERED: LORazepam INJ 2 MG/ML (ATIVAN) VIAL IVP ONE (14:15)
[2017-12-25] MEDS ORDERED: ONDANSETRON 4 MG/2 ML (SDV) Z0FRAN IVP ONE (14:15)
[2017-12-25 14:26] LABS: ABG BASE EXCESS -13.3 MMOL/L (-2.5-2.5); ABG OXYGEN SATURATION 99 % (94-100); ABG PCO2 21 MMHG (35-45); ABG PH 7.35 (7.37-7.43); ABG PO2 117 MMHG (79-93)
[2017-12-25 14:29] LABS: ALANINE AMINOTRANSFERASE 13 U/L (0-55); ALBUMIN 4.7 GM/DL (3.2-4.5); ALKALINE PHOSPHATASE 65 U/L (40-136); BUN/CREATININE RATIO 16; CALCIUM 9.7 MG/DL (8.5-10.1); CARBON DIOXIDE 10 MMOL/L (21-32); CHLORIDE 105 MMOL/L (98-107); GFR ESTIMATED > 60; GLUCOSE 341 MG/DL (70-105); SODIUM 140 MMOL/L (135-145); TOTAL PROTEIN 7.2 GM/DL (6.4-8.2)
[2017-12-25 14:31] LABS: ALLENS TEST YES-POS; INSPIRED O2 RA; PATIENT TEMP 98.5; VENTILATOR NO
[2017-12-25] MEDS: inSUlin (REGULAR) HUMAN 1 UNIT/0.01 ML (CHARGE PER UNIT) IV SCH ×6 (14:45→16:11)
[2017-12-25] MEDS ORDERED: D5 NS 1000 ML IV SOLUTION 1,000 ML IV SCH (14:45)
--- NOTE | 2017-12-25 15:16 | Diagnostic Imaging Report ---
Indication: Diabetes. Frontal chest obtained at 3:01 hours p.m. and compared to 05/22/2017. Heart is normal in size. There are mild chronic-appearing increased interstitial markings. There is no acute consolidation or pneumothorax or pleural fluid. The mediastinal silhouette appears unremarkable. Impression: No acute process in the chest and no change compared with 05/22/2017. Dictated by: Dictated on workstation # [id number]
[2017-12-25 16:06] LABS: BILIRUBIN,URINE NEGATIVE (NEGATIVE); CLARITY,URINE CLEAR; COLOR,URINE YELLOW; GLUCOSE, URINE (UA) 4+ (NEGATIVE); KETONES,URINE 4+ (NEGATIVE); LEUKOCYTE ESTERASE ,URINE NEGATIVE (NEGATIVE); NITRITE,URINE NEGATIVE (NEGATIVE); PH,URINE 5 (5-9); PROTEIN,URINE 1+ (NEGATIVE); UROBILINOGEN,URINE NORMAL (NORMAL)
[2017-12-25 16:15] LABS: AMPHETAMINE SCREEN, URINE NEGATIVE (NEGATIVE); BARBITURATE SCREEN URINE NEGATIVE (NEGATIVE); BENZODIAZEPINES SCREEN URINE NEGATIVE (NEGATIVE); CANNABINOID SCREEN, URINE POSITIVE (NEGATIVE); COCAINE SCREEN URINE NEGATIVE (NEGATIVE); METHADONE STAT NEGATIVE (NEGATIVE); METHAMPHETAMINE SCREEN URINE S NEGATIVE (NEGATIVE); OPIATE SCREEN URINE NEGATIVE (NEGATIVE); OXYCODONE STAT NEGATIVE (NEGATIVE); PROPOXYPHENE STAT NEGATIVE (NEGATIVE); TRICYCLIC ANTIDEPRESSANTS SCRE NEGATIVE (NEGATIVE)
[2017-12-25 16:19] LABS: SQUAMOUS EPITHELIAL CELL,UR RARE /HPF
[2017-12-25] MEDS ORDERED: inSUlin REGULAR TPN/DRIP ONLY 250 UNITS in NORMAL SALINE 250 ML IV SCH (16:45)
[2017-12-25 17:19] LABS: BUN/CREATININE RATIO 15; CALCIUM 8.2 MG/DL (8.5-10.1); CARBON DIOXIDE 14 MMOL/L (21-32); CHLORIDE 112 MMOL/L (98-107); CREATININE SERUM 0.97 MG/DL (0.60-1.30); GFR ESTIMATED > 60; GLUCOSE 231 MG/DL (70-105); POTASSIUM 3.7 MMOL/L (3.6-5.0); SODIUM 141 MMOL/L (135-145)
[2017-12-25] MEDS ORDERED: D5 1/2 NS W/KCL 20 MEQ/L 1,000 ML IV SCH (17:45)
[2017-12-25] MEDS ORDERED: 1/2 NS W/KCL 20 MEQ/L 1,000 ML IV SCH (19:15)
[2017-12-25] MEDS ORDERED: ONDANSETRON 4 MG/2 ML (SDV) Z0FRAN IV PRN (19:15)
[2017-12-25] MEDS ORDERED: CATHETER FLUSH 10 ML SYR IV PRN (19:15)
[2017-12-25] MEDS ORDERED: NS IV 1000 ML X 1 WIDE OPEN IV ONE (19:15)
[2017-12-25] MEDS ORDERED: D5 1/2 NS IV 1,000 ML IV SCH (19:15)
[2017-12-25] MEDS ORDERED: REGULAR inSUlin DRIP 250 UNITS/NS 250 ML IV SCH ×2 (19:15)
[2017-12-25 20:47] LABS: BUN/CREATININE RATIO 15; CALCIUM 8.2 MG/DL (8.5-10.1); CARBON DIOXIDE 20 MMOL/L (21-32); CHLORIDE 110 MMOL/L (98-107); CREATININE SERUM 0.85 MG/DL (0.60-1.30); GFR ESTIMATED > 60; GLUCOSE 177 MG/DL (70-105); POTASSIUM 3.8 MMOL/L (3.6-5.0); SODIUM 140 MMOL/L (135-145)
[2017-12-25 22:24] LABS: BUN/CREATININE RATIO 13; CALCIUM 8.2 MG/DL (8.5-10.1); CARBON DIOXIDE 21 MMOL/L (21-32); CHLORIDE 110 MMOL/L (98-107); CREATININE SERUM 0.84 MG/DL (0.60-1.30); GFR ESTIMATED > 60; GLUCOSE 192 MG/DL (70-105); POTASSIUM 3.8 MMOL/L (3.6-5.0); SODIUM 139 MMOL/L (135-145)
[2017-12-26] MEDS ORDERED: DEXTROSE 10% IV SOLUTION 1,000 ML IV ONE (00:18)
[2017-12-26] MEDS: DEXTROSE 10% IV SOLUTION 1,000 ML IV PRN ×2 (00:20→05:55)
[2017-12-26 02:08] LABS: BUN/CREATININE RATIO 13; CALCIUM 8.4 MG/DL (8.5-10.1); CARBON DIOXIDE 19 MMOL/L (21-32); CHLORIDE 112 MMOL/L (98-107); CREATININE SERUM 0.75 MG/DL (0.60-1.30); GFR ESTIMATED > 60; GLUCOSE 95 MG/DL (70-105); POTASSIUM 3.8 MMOL/L (3.6-5.0); SODIUM 140 MMOL/L (135-145)
[2017-12-26 04:00] VITALS: BP 98/62
[2017-12-26] MEDS: D5 1/2 NS W/KCL 20 MEQ/L 1,000 ML IV SCH ×6 (04:09→12:31)
[2017-12-26 06:11] LABS: BASOPHILS % (AUTO) 0 % (0-10); EOSINOPHILS # (AUTO) 0.1 10^3/uL (0.0-0.3); EOSINOPHILS % (AUTO) 1 % (0-10); HEMATOCRIT 36 % (40-54); HEMOGLOBIN 12.7 G/DL (13.3-17.7); LYMPHOCYTES # (AUTO) 3.2 X 10^3 (1.0-4.0); LYMPHOCYTES % (AUTO) 27 % (12-44); MEAN CORPUSCULAR HEMOGLOBIN 32 PG (25-34); MEAN CORPUSCULAR HGB CONC 35 G/DL (32-36); MEAN CORPUSCULAR VOLUME 90 FL (80-99); MEAN PLATELET VOLUME 11.3 FL (7.4-10.4); MONOCYTES # (AUTO) 0.8 X 10^3 (0.0-1.0); MONOCYTES % (AUTO) 6 % (0-12); NEUTROPHILS # (AUTO) 7.6 X 10^3 (1.8-7.8); NEUTROPHILS % (AUTO) 65 % (42-75); PLATELET COUNT 179 10^3/uL (130-400); RED BLOOD COUNT 4.02 10^6/uL (4.35-5.85); RED CELL DISTRIBUTION WIDTH 12.9 % (10.0-14.5); WHITE BLOOD COUNT 11.7 10^3/uL (4.3-11.0)
[2017-12-26 06:34] LABS: ALANINE AMINOTRANSFERASE 10 U/L (0-55); ALBUMIN 3.6 GM/DL (3.2-4.5); ALKALINE PHOSPHATASE 43 U/L (40-136); BILIRUBIN,TOTAL 0.5 MG/DL (0.1-1.0); BUN/CREATININE RATIO 12; CALCIUM 8.5 MG/DL (8.5-10.1); CARBON DIOXIDE 18 MMOL/L (21-32); CHLORIDE 113 MMOL/L (98-107); CREATININE SERUM 0.74 MG/DL (0.60-1.30); GFR ESTIMATED > 60; GLUCOSE 119 MG/DL (70-105); POTASSIUM 3.5 MMOL/L (3.6-5.0); SODIUM 140 MMOL/L (135-145); TOTAL PROTEIN 5.3 GM/DL (6.4-8.2)
[2017-12-26] MEDS ORDERED: inSUlin DETERMIR 1 UNIT/0.01 ML (LEVEMIR) CHARGE PER UNIT SQ NR ×2 (06:45)
[2017-12-26] MEDS ORDERED: inSUlin DETERMIR 1 UNIT/0.01 ML (LEVEMIR) CHARGE PER UNIT SQ ONE (06:51)
[2017-12-26] MEDS: inSUlin ASPART (NovoLOG) 1 UNIT/0.01 ML (CHARGE PER UNIT) SC SCH ×2 (06:54→12:16)
[2017-12-26] MEDS ORDERED: KCL 20 MEQ TAB (K-DUR) PO NR (08:00)
[2017-12-26 08:22] VITALS: BP 117/71
[2017-12-26] MEDS ORDERED: NS IV 1000 ML 1,000 ML IV SCH (09:15)
[2017-12-26] MEDS ORDERED: INSU100V SC (09:23)
[2017-12-26] MEDS ORDERED: INSU100V5 SQ (09:30)
--- NOTE | 2017-12-26 11:38 | Occ Therapy Progress Note ---
Therapy Progress Note OT order received. Chart reviewed. OT spoke with pt. Pt. is dressed and states that he thinks he is leaving today. Pt. reports that he has been ambulating to the bathroom, dressed himself, and has no functional issues at this time. No OT at this time required. 1, visit 1038 Discharge MATILDE FINK OT Dec 26, 2017 11:38
[2017-12-26] MEDS: 1/2 NS IV SOLUTION 1,000 ML IV SCH ×4 (12:28→12:31)
[2017-12-26 12:34] VITALS: BP 127/70
[2017-12-26 13:38] LABS: BUN/CREATININE RATIO 9; CALCIUM 8.5 MG/DL (8.5-10.1); CARBON DIOXIDE 21 MMOL/L (21-32); CHLORIDE 111 MMOL/L (98-107); CREATININE SERUM 0.79 MG/DL (0.60-1.30); GFR ESTIMATED > 60; GLUCOSE 164 MG/DL (70-105); POTASSIUM 3.5 MMOL/L (3.6-5.0); SODIUM 142 MMOL/L (135-145)
--- NOTE | 2017-12-26 14:55 | Discharge Instructions ---
Discharge [facility] Discharge Medications New, Converted or Re-Newed RX: Transmitted to Pharmacy New Medications: Insulin Determir (Levemir) 1,000 Units/10 Ml Soln 30 UNITS SQ HS PRN for If pump not working, #10 ML 0 Refills Continued Medications: Insulin Lispro (Humalog) 100 Unit/1 Ml Vial 0 SC PER INSULIN PUMP, #1 1.2/hour BASAL. 1 unit/10 carbs with meals. Patient Instructions Goal/Follow Up Appt: Follow up with Dr. Mckeon within one week of discharge. Follow up with Dr. Barnes at [facility] on 12/31 at 1:20 pm. Patient Instructions: Use levemir 30 units daily along with lispro per carbohydrates at meals with syringe and needle if pump is not working. Talk to Dr. Mckeon about pump if still not working. Return to [facility] For: Inability to keep down food, severe abdominal pain, confusion Activity & Diet Discharge Diet: ADA Diet Activity as Tolerated: Yes Copy Copies To 1: THOMAS BARNES MD, BETHANY N MD Dec 26, 2017 09:32
[2017-12-26 15:21] VITALS: BP 127/70
--- NOTE | 2017-12-26 16:28 | Short Stay Summary ---
History of Present Illness History of Present Illness Reason for visit/HPI 22 yo male with type I diabetes presented to ER with vomiting and found to be in DKA. He reports his insulin pump stopped working, thought it needed new batteries but new batteries didn't make it work. He has syringes and needles and was giving himself some short acting insulin but had no long-acting insulin at home. Date of Admission Dec 25, 2017 at 17:52 Date of Discharge Dec 26, 2017 at 15:35 Time Seen by Provider: 09:00 Attending Physician Timothy Sutton MD Admitting Physician [place] [place] Consult Allergies and Home Medications Allergies Coded Allergies: No Known Drug Allergies (Unverified , 03/30/11) Home Medications Insulin Determir 1,000 Units/10 Ml Soln, 30 UNITS SQ HS PRN for If pump not working Prescribed by: TIMOTHY SUTTON on 12/26/17 0930 Insulin Lispro 100 Unit/1 Ml Vial, 0 SC PER INSULIN PUMP 1.2/hour BASAL. 1 unit/10 carbs with meals. Prescribed by: TIMOTHY SUTTON on 12/26/17 0923 Patient Home Medication List Home Medication List Reviewed: Yes Past Qnngquv-Tevfxi-Oqloyv Hx Patient Social History Alcohol Use: Denies Use Recreational Drug Use: No Drug of Choice: pot Smoking Status: Current Everyday Smoker Type Used: Cigars 2nd Hand Smoke Exposure: Yes Recent Foreign Travel: No Contact w/other who traveled: No Recent Hopitalizations: Yes (JANUARY 2017 DKA ) Recent Infectious Disease Expo: No Immunizations Up To Date Tetanus Booster (TDap): Unknown Pediatric: No Date of Pneumonia Vaccine: Jan 06, 2015 Seasonal Allergies Seasonal Allergies: Yes Surgeries Yes (urethral stretch) Respiratory No Currently Using CPAP: No Currently Using BIPAP: No Cardiovascular No Neurological No Reproductive System Hx Reproductive Disorders: No Sexually Transmitted Disease: No HIV/AIDS: No Genitourinary No Gastrointestinal No Gastroesophageal Reflux Musculoskeletal No Endocrine History of Endocrine Disorders: Yes (Type I diabetes) Endocrine Disorders: Diabetes, Insulin dep HEENT History of HEENT Disorders: No Cancer No Did You Recieve Any Treatments: No Psychosocial History of Psychiatric Problem: Yes Behavioral Health Disorders: Anxiety, Depression Blood Transfusions History of Blood Disorders: No Adverse Reaction to a Blood Tr: No Family Medical History Significant Family History: No Pertinent Family Hx Family Hx: Patient reports no known family medical history. Constitutional: malaise Respiratory: no symptoms reported Cardiovascular: no symptoms reported Gastrointestinal: nausea, vomiting Genitourinary: no symptoms reported Musculoskeletal: no symptoms reported Skin: no symptoms reported Psychiatric/Neurological: No Symptoms Reported Physical Exam Vital Signs Vital Signs - First Documented 12/25/17 12/25/17 14:01 15:00 Temp 98.0 Pulse 92 Resp 18 B/P (MAP) 107/79 (88) Pulse Ox 98 O2 Delivery Room Air Capillary Refill : Less Than 3 Seconds General Appearance: No Apparent Distress, WD/WN Respiratory: Lungs Clear, Normal Breath Sounds Cardiovascular: Regular Rate, Rhythm, No Murmur Gastrointestinal: Normal Bowel Sounds, Non Tender, Soft Extremity: No Pedal Edema Neurologic/Psychiatric: Alert Skin: Normal Color, Warm/Dry Clinical Quality Measures DVT/VTE Risk/Contraindication: Risk Factor Score Per Nursin RFS Level Per Nursing on Admit: 1=Low/No VTE PPX Short Stay Diagnosis Discharge Diagnosis-Short Stay Admission Diagnosis: Diabetic ketoacidosis Final Discharge Diagnosis: Diabetic ketoacidosis- secondary to lack of insulin, resolved rapidly with insulin drip over night. Maintained normal anion gap and bicarb on subcutaneous insulin and diabetic diet and wanting to go home. Script given for levemir for emergency use if pump malfunctions. Conclusion Labs Laboratory Tests 12/25/17 16:45: Sodium Level 141, Potassium Level 3.7, Chloride Level 112H, Carbon Dioxide Level 14L, Anion Gap 15H, Blood Urea Nitrogen 15, Creatinine 0.97, Estimat Glomerular Filtration Rate > 60, BUN/Creatinine Ratio 15, Glucose Level 231H, Calcium Level 8.2L 12/25/17 18:05: Glucometer 200H 12/25/17 19:44: Glucometer 228H 12/25/17 20:25: Sodium Level 140, Potassium Level 3.8, Chloride Level 110H, Carbon Dioxide Level 20L, Anion Gap 10, Blood Urea Nitrogen 13, Creatinine 0.85, Estimat Glomerular Filtration Rate > 60, BUN/Creatinine Ratio 15, Glucose Level 177H, Calcium Level 8.2L 12/25/17 20:47: Glucometer 175H 12/25/17 21:41: Glucometer 220H 12/25/17 22:05: Sodium Level 139, Potassium Level 3.8, Chloride Level 110H, Carbon Dioxide Level 21, Anion Gap 8, Blood Urea Nitrogen 11, Creatinine 0.84, Estimat Glomerular Filtration Rate > 60, BUN/Creatinine Ratio 13, Glucose Level 192H, Calcium Level 8.2L 12/25/17 22:57: Glucometer 170H 12/25/17 23:46: Glucometer 139H 12/26/17 00:15: Glucometer 118H 12/26/17 00:51: Glucometer 93 12/26/17 01:11: Glucometer 78 12/26/17 01:30: Sodium Level 140, Potassium Level 3.8, Chloride Level 112H, Carbon Dioxide Level 19L, Anion Gap 9, Blood Urea Nitrogen 10, Creatinine 0.75, Estimat Glomerular Filtration Rate > 60, BUN/Creatinine Ratio 13, Glucose Level 95, Calcium Level 8.4L 12/26/17 01:41: Glucometer 113H 12/26/17 02:13: Glucometer 156H 12/26/17 03:04: Glucometer 151H 12/26/17 04:00: Glucometer 319H 12/26/17 05:16: Glucometer 127H 12/26/17 05:18: White Blood Count 11.7H, Red Blood Count 4.02L, Hemoglobin 12.7L, Hematocrit 36L , Mean Corpuscular Volume 90, Mean Corpuscular Hemoglobin 32, Mean Corpuscular Hemoglobin Concent 35, Red Cell Distribution Width 12.9, Platelet Count 179, Mean Platelet Volume 11.3H, Neutrophils (%) (Auto) 65, Lymphocytes (%) (Auto) 27 , Monocytes (%) (Auto) 6, Eosinophils (%) (Auto) 1, Basophils (%) (Auto) 0, Neutrophils # (Auto) 7.6, Lymphocytes # (Auto) 3.2, Monocytes # (Auto) 0.8, Eosinophils # (Auto) 0.1, Basophils # (Auto) 0.0, Sodium Level 140, Potassium Level 3.5L, Chloride Level 113H, Carbon Dioxide Level 18L, Anion Gap 9, Blood Urea Nitrogen 9, Creatinine 0.74, Estimat Glomerular Filtration Rate > 60, BUN/ Creatinine Ratio 12, Glucose Level 119H, Calcium Level 8.5, Total Bilirubin 0.5 , Aspartate Amino Transf (AST/SGOT) 13, Alanine Aminotransferase (ALT/SGPT) 10, Alkaline Phosphatase 43, Total Protein 5.3L, Albumin 3.6 12/26/17 05:46: Glucometer 120H 12/26/17 06:14: Glucometer 136H 12/26/17 06:40: Glucometer 154H 12/26/17 10:57: Glucometer 169H 12/26/17 13:11: Sodium Level 142, Potassium Level 3.5L, Chloride Level 111H, Carbon Dioxide Level 21, Anion Gap 10, Blood Urea Nitrogen 7, Creatinine 0.79, Estimat Glomerular Filtration Rate > 60, BUN/Creatinine Ratio 9, Glucose Level 164H, Calcium Level 8.5 Conclusion/Plan See discharge diagnosis Copy Copies To 1: THOMAS BARNES MD, BETHANY N MD Dec 26, 2017 16:28
== END 2017-12-26 15:35 | disposition home or self-care (01) ==
LOC: EDUNIT# 13:57 → ER 13:59 → 4TH 17:52
PROVIDERS: ADMIT Family Medicine; ATTEND Family Medicine
DX: E10.10 Type 1 diabetes mellitus with ketoacidosis without coma (principal); T85.614A Breakdown (mechanical) of insulin pump, initial encounter; F17.290 Nicotine dependence, other tobacco product, uncomplicated; K21.9 Gastro-esophageal reflux disease without esophagitis
CPT/HCPCS: 36415; 36600; 71045; 80048; 80053; 80306; 80320; 81000; 82010; 82805; 82962; 83036; 85025; 96361; 96365; 96366; 96375; G0378

== ENCOUNTER 2018-05-06 00:01 | Inpatient (IN) | payer OTHER ==
[2018-05-06] VITALS (19 sets, daily range): BP systolic 101–149; BP diastolic 52–92
[~2018-05-06] VITALS: Ht 193 cm; Wt 67.1 kg
[~2018-05-06 00:01] MED LIST changes: +INSU100V SC; +INSU100V5 SQ
--- OUTSIDE RECORDS SUMMARY | 2018-05-06 00:06 | XMS REPORT ---
Author Author SHEKHAR GEORGE Organization [facility] Address [address] [place] [address] Care Team Providers Care Safety Risk Lead Name Role Phone SHEKHAR GEORGE Unavailable PROBLEMS Type Condition ICD9-CM Code [id number] Code Onset Dates Condition Status SNOMED Code Problem Controlled type 1 diabetes mellitus without complication, with long- term current use of insulin E10.9 Active 283248865 ALLERGIES Substance Reaction Event Type Date Status [place] Unknown Non Drug Allergy Jan, Active ENCOUNTERS Encounter Location Date Diagnosis [facility] [address] [address] Mar, [facility] [address] [address] Jan, Controlled type 1 diabetes mellitus without complication, with long-term current use of insulin E10.9 and Muscle cramps R25.2 [facility] [address] [address] Jan, [facility] [address] [address] Dec, [facility] [address] [id number] Jan, [facility] [address] [address] November, Bronchitis J40 [facility] [address] [address] Jan, [facility] [address] [address] Dec, [facility] [address] [address] Dec, [facility] [id number] [place] [address] Dec, Controlled type 1 diabetes mellitus without complication, with long-term current use of insulin E10.9 [place] [id number] [place] [address] Dec, [place] [address] [address] Dec, [place] [id number] [place] [address] Dec, [place] [address] [address] November, [facility] [address] [id number] Oct, Encounter for immunization Z23 [facility] [address] [id number] Sep, Encounter for immunization Z23 [facility] [id number] [place] [address]- [address] Aug, Abdominal pain R10.9 [place] [id number] [place] [address]- [address] Aug, Diabetes mellitus without mention of complication, type I [ juvenile type], not stated as uncontrolled 250.01 [place] [id number] [place] [address] Apr, Insect bite of arm, right, infected S40.861A [place] [id number] [place] [address]- [address] Mar, Spider bite 989.5 [place] [id number] [place] [address]- [address] Feb, [place] [address] [address] Feb, Diabetes mellitus without mention of complication, type I [ juvenile type], not stated as uncontrolled 250.01 [facility] [address] [place] [address] Feb, [facility] [id number] [address] Oct, [facility] [id number] [place] [address] Oct, [facility] [id number] [place] [address], [place] [address] Apr, [facility] [id number] [place] [address], [place] [address] Apr, [facility] [id number] [place] [address]796- 4166 Mar, [facility] [id number] [place] [address]- 12[address] Mar, [facility] [address] [address] Mar, [facility] [id number] [place] [address]161- [address] Jan, [facility] [address] [address] Dec, [facility] [address] [address] Dec, [facility] [address] [address] Sep, [facility] [id number] [place] [address]- [address] Sep, [facility] [address] [address] Aug, [facility] [id number] [place] [address]- [address] Aug, [facility] [address] [address] Jul, [facility] [address] [address] Jul, [facility] [address] [address] Jun, [facility] [id number] [place] [address] 22875- 6[address] Jun, [facility] [id number] [place] [address]69- 9976 Jun, [facility] [id number] [place] [address] 117[address]- 4886 May, [facility] [id number] [place] [address] 24812- 8326 May, [facility] [id number] [place] [address]20- 10[address] May, [facility] [address] [address] Apr, [facility] [address] [address] Apr, [facility] [address] [address] Sep, [facility] [address] [address] Sep, [facility] [id number] [address] Jun, IMMUNIZATIONS No Known Immunizations SOCIAL HISTORY Never Assessed REASON FOR VISIT complaining of lower leg pain bilaterally since this am when he woke up. thinks its muscle pain. also low on his insulin et would like to get it refilled. [email or web address] PLAN OF CARE Activity Details Follow Up w/ PCP Reason:insulin refills VITAL SIGNS Height 74 in 2018-01-26 Weight 142.2 lbs 2018-01-26 Temperature 98.3 degrees Fahrenheit 2018-01-26 Heart Rate 80 bpm 2018-01-26 Respiratory Rate 20 2018-01-26 BMI 18.26 kg/m2 2018-01-26 Blood pressure systolic 124 mmHg 2018-01-26 Blood pressure diastolic 76 mmHg 2018-01-26 MEDICATIONS Medication Instructions Dosage Frequency Start Date End Date Duration Status Levemir 100 UNIT/ML Subcutaneous daily 30 units 24h 30 days Active Humalog 100 UNIT/ML Active RESULTS No Results PROCEDURES No Known procedures INSTRUCTIONS MEDICATIONS ADMINISTERED No Known Medications MEDICAL (GENERAL) HISTORY Type Description Date Medical History type I diabetes Medical History Hx of DKA Surgical History dental caps 2000 Surgical History urethral stretch Hospitalization History December 2014 @ [facility] for [facility] Hospitalization History mult times as infant for breathing problems Hospitalization History [facility] diabetes dx 08/30/2011 Hospitalization History DKA with resultant dehydration noncompliance--[facility] 12/26/15 Hospitalization History [facility] 01/06/17 Hospitalization History DKA-[facility] 12/2017
--- OUTSIDE RECORDS SUMMARY | 2018-05-06 00:06 | XMS REPORT ---
Author Author BRITTANY TIMOTHY [facility] Address [address] [place] [address] Care Team Providers Care Cathode Ray Tube Assembler Name Role Phone BRITTANYRANULFOTIMOTHY Unavailable PROBLEMS Type Condition ICD9-CM Code [id number] Code Onset Dates Condition Status SNOMED Code Problem Controlled type 1 diabetes mellitus without complication, with long- term current use of insulin E10.9 Active [id number] ALLERGIES No Information ENCOUNTERS Encounter Location Date Diagnosis [facility] [id number] [place] [address] Jan, Controlled type 1 diabetes mellitus without complication, with long-term current use of insulin E10.9 and Muscle cramps R25.2 [facility] [id number] [place] [address]- [address] Jan, [facility] [address] [address] Dec, [facility] [id number] [place] [id number] Jan, [facility] [id number] [place] [address] November, Bronchitis J40 [facility] [id number] [place] [address] 04384- 8792 Jan, [facility] [id number] [place] [address] 8[address]55- 7056 Dec, [facility] [id number] [place] [address] 81549- 9264 Dec, [facility] [id number] [place] [address]32- 95[address] Dec, Controlled type 1 diabetes mellitus without complication, with long-term current use of insulin E10.9 [place] [id number] [place] [address]473- 7253 Dec, [facility] [facility] [id number] [place] [address] 8[address]69- 9512 Dec, [facility] [facility] [id number] [place] [address] 56323- 5390 Dec, [place] [id number] [place] [address]- 3061 November, [facility] [id number] [place] [id number] Oct, Encounter for immunization Z23 [facility] [address] [id number] Sep, Encounter for immunization Z23 [place] [id number] [place] [address] 66337- 0729 Aug, Abdominal pain R10.9 [place] [id number] [place] [address] 23291- 6099 Aug, Diabetes mellitus without mention of complication, type I [ juvenile type], not stated as uncontrolled 250.01 [place] [id number] [place] [address] 52762- 5081 Apr, Insect bite of arm, right, infected S40.861A [place] [id number] [place] [address] 46612- 3869 Mar, Spider bite 989.5 [place] [id number] [place] [address] 64342- 5898 Feb, [place] [id number] [place] [address] 52407- 6501 Feb, Diabetes mellitus without mention of complication, type I [ juvenile type], not stated as uncontrolled 250.01 [place] [id number] [place] [address] 97087- 4534 Feb, [facility] [place] [facility] [address] [id number] [place] [address]- [address] 14 Oct, 2014 [facility] [place] [facility] [address] [id number] [place] [address]- 9036 Oct, [facility] [place] [facility] [address] [id number] [place] [address]- 8420 Apr, [facility] [place] [facility] [address] [id number] [place] [address]- 7726 Apr, [facility] [place] [facility] [address] [id number] [place] [address]- 1815 05 Mar, 2013 [facility] [place] [facility] [address] [id number] [place] [address]- 7417 Mar, [facility] [place] [facility] [address] [id number] [place] [address]- 6907 Mar, [facility] [place] [facility] [address] [id number] [place] [address]- 6820 Jan, [facility] [place] [facility] [address] [id number] [place] [address]- 7720 Dec, [facility] [place] [facility] [address] [id number] [place] [address]- 7648 Dec, [facility] [place] [facility] [address] [id number] [place] [address]- 0838 Sep, [facility] [place] [facility] [address] [id number] [address] Sep, [facility] [place] [facility] [address] [id number] [place] [address]- 5920 Aug, [facility] [place] [facility] [address] [id number] [place] [address]- 5900 Aug, [facility] [place] [facility] [address] [id number] [place] [address]- 5086 Jul, [facility] [place] [facility] [address] [address]- [address]98 09 Jul, 2011 [facility] [address] [address]- 6[address] 16 Jun, 2011 [facility] [address] [address] Jun, [facility] [address], [place] [address]- 1031 Jun, [facility] [address] [address]- 0945 May, [facility] [id number] [place] [address] 533819- 9546 May, [facility] [id number] [place] [address] 51891- 6625 May, [facility] [id number] [place] [address] 35739- 2007 Apr, [facility] [address], [place] [address]- 4967 Apr, [facility] [address], [place] [address]- 4674 Sep, [facility] [address], [place] [address]- 3030 Sep, [facility] [address], [place] [address]- 9446 Jun, IMMUNIZATIONS No Known Immunizations SOCIAL HISTORY Never Assessed REASON FOR VISIT Med Rec PLAN OF CARE VITAL SIGNS MEDICATIONS Medication Instructions Dosage Frequency Start Date End Date Duration Status Insulin Detemir 100 UNIT/ML Subcutaneous hs prn if pump not working 30 units Active Insulin Lispro 100 UNIT/ML Subcutaneous 1 unit/10 carbs with meals 1.2/hour BASAL Active RESULTS No Results PROCEDURES No Known procedures INSTRUCTIONS MEDICATIONS ADMINISTERED No Known Medications MEDICAL (GENERAL) HISTORY Type Description Date Medical History type I diabetes Medical History Hx of DKA Surgical History dental caps 2000 Surgical History urethral stretch Hospitalization History December 2014 @ [facility] Hospitalization History mult times as infant for breathing problems Hospitalization History [facility] diabetes dx 08/30/2011 Hospitalization History DKA with resultant dehydration noncompliance--[facility] 12/26/15 Hospitalization History [facility] 01/06/17 Hospitalization History [facility] 12/2017
--- OUTSIDE RECORDS SUMMARY | 2018-05-06 00:06 | XMS REPORT ---
Author Author THOAMS BARNES Organization [facility] [place] Address [address] [place] [address] Care Team Providers Care Aws Solution Architect Name Role Phone THOMAS BARNES Unavailable PROBLEMS Type Condition ICD9-CM Code ORW37-IA Code Onset Dates Condition Status SNOMED Code Problem Controlled type 1 diabetes mellitus without complication, with long- term current use of insulin E10.9 Active [id number] ALLERGIES No Information ENCOUNTERS Encounter Location Date Diagnosis [facility] [place] [address] [address] Mar, [facility] [address] [address] Jan, Controlled type 1 diabetes mellitus without complication, with long-term current use of insulin E10.9 and Muscle cramps R25.2 [facility] [place] [address] [address] Jan, [facility] [place] [address] [address] Dec, [facility] [address] [id number] Jan, [facility] [address] [address] November, Bronchitis J40 [facility] [place] [address] [address] Jan, [facility] [place] [address] [address] Dec, [facility] [place] [address] [address] Dec, [facility] [place] [address] [address] Dec, Controlled type 1 diabetes mellitus without complication, with long-term current use of insulin E10.9 [place] [address] [place] [id number] [place] [address]- [address] Dec, [facility] [place] [id number] [place] [address]156- 1677 Dec, [facility] [place] [id number] [place] [address]- 6910 Dec, [place] [id number] [place] [address]- [address]286 November, [facility] [address] [id number] Oct, Encounter for immunization Z23 [facility] [address] [id number] Sep, Encounter for immunization Z23 [place] [id number] [place] [address]- 5284 Aug, Abdominal pain R10.9 [place] [id number] [place] [address]- 9[address] Aug, Diabetes mellitus without mention of complication, type I [ juvenile type], not stated as uncontrolled 250.01 [place] [id number] [place] [address] 02459- [address] Apr, Insect bite of arm, right, infected S40.861A [place] [address] [place] [address]- 5[address] Mar, Spider bite 989.5 [place] [id number] [place] [address] 53572- 8026 Feb, [place] [id number] [place] [address] 6[address]40- 3478 Feb, Diabetes mellitus without mention of complication, type I [ juvenile type], not stated as uncontrolled 250.01 [facility] [address] [id number] [place] [address] Feb, [facility] [address] [id number] [place] [address] Oct, [facility] [address] [facility] [id number] [place] [address] Oct, [facility] [address] [id number] [place] [address] Apr, [facility] [address] [id number] [place] [address] Apr, [facility] [address] [id number] [place] [address] Mar, [facility] [address] [facility] [id number] [place] [address] 18[address] Mar, [facility] [place] [facility] [address] [id number] [address] Mar, [facility] [address] [id number] [address] Jan, [facility] [place] [facility] [address] [facility] [id number], [place] [address] Dec, [facility] [place] [facility] [address] [id number], [place] [address] 277[address] Dec, [facility] [place] [facility] [address] [id number] [address] 6[address] Sep, [facility] [place] [facility] [address] [id number] [place] [address] 4058 Sep, [facility] [place] [facility] [address] [facility] [id number], [place] [address] 46[address] Aug, [facility] [place] [facility] [address] [facility] [id number], [place] [address] 4048 Aug, [facility] [place] [facility] [address] [address] Jul, [facility] [place] [address] Jul, [facility] [place] [address] 16 Jun, 2011 [facility] [place] [id number] [place] [address] 726770- 2092 Jun, [facility] [place] [id number] [place] [address] 35405- 0328 Jun, [facility] [place] [id number] [place] [address] 792222- 6289 May, [facility] [place] [id number] [place] [address]- 1397 May, [facility] [place] [id number] [place] [address] 63732- 7999 May, [facility] [place] [address], [place] [address] Apr, [facility] [place] [id number] [place] [address] 92875- 3272 Apr, [facility] [place] [address], [place] [address] Sep, [facility] [place] [address], [place] [address] Sep, [facility] [place] [address], [place] [address] Jun, IMMUNIZATIONS No Known Immunizations SOCIAL HISTORY Never Assessed REASON FOR VISIT Med Refill PLAN OF CARE VITAL SIGNS MEDICATIONS Unknown Medications RESULTS No Results PROCEDURES No Known procedures INSTRUCTIONS MEDICATIONS ADMINISTERED No Known Medications MEDICAL (GENERAL) HISTORY Type Description Date Medical History type I diabetes Medical History Hx of DKA Surgical History dental caps 2000 Surgical History urethral stretch Hospitalization History December 2014 @ [facility] for diabetes Hospitalization History mult times as infant for breathing problems Hospitalization History [facility] diabetes dx 08/30/2011 Hospitalization History DKA with resultant dehydration noncompliance--[facility] 12/26/15 Hospitalization History DKA-[facility] 01/06/17 Hospitalization History [facility] 12/2017
--- OUTSIDE RECORDS SUMMARY | 2018-05-06 00:06 | XMS REPORT ---
Author Author JAMIA RIGGINS [facility] Address [address] [place] [address] Care Team Providers Care News Editor Name Role Phone JAMIA RIGGINS Unavailable PROBLEMS Type Condition ICD9-CM Code TBN28-HC Code Onset Dates Condition Status SNOMED Code Problem Controlled type 1 diabetes mellitus without complication, with long- term current use of insulin E10.9 Active [id number] ALLERGIES No Information ENCOUNTERS Encounter Location Date Diagnosis [facility] [address] [address] Apr, [facility] [address] [address] Mar, [facility] [address] [address] Jan, Controlled type 1 diabetes mellitus without complication, with long-term current use of insulin E10.9 and Muscle cramps R25.2 [facility] [address] [id number] [place] [address]- [address] Jan, [facility] [id number] [place] [address]15- 8346 Dec, [facility] [address] [id number] Jan, [facility] [address] [address] November, Bronchitis J40 [facility] [address] [address]- [address] Jan, [facility] [address] [address]- [address] Dec, [facility] [id number] [place] [address]- 6086 Dec, [facility] [id number] [place] [address] 03204- 0998 Dec, Controlled type 1 diabetes mellitus without complication, with long-term current use of insulin E10.9 [facility] [id number] [place] [address] 91089- 1696 Dec, [facility] [address] [address]- 6428 Dec, [facility] [id number] [place] [address] 72845- 0095 Dec, [facility] [address] [address]- 9391 November, [facility] [address] [id number] Oct, Encounter for immunization Z23 [facility] [id number] [place] [id number] Sep, Encounter for immunization Z23 [place] [address] [address]- [address] Aug, Abdominal pain R10.9 [place] [id number] [place] [address] 68986- 0291 Aug, Diabetes mellitus without mention of complication, type I [ juvenile type], not stated as uncontrolled 250.01 [facility] [id number] [place] [address] 85359- 7500 Apr, Insect bite of arm, right, infected S40.861A [place] [id number] [place] [address]23- 6435 Mar, Spider bite 989.5 [facility] [id number] [place] [address] 87352- 1240 Feb, [facility] [id number] [place] [address] [place] [address]- [address]87 Feb, Diabetes mellitus without mention of complication, type I [ juvenile type], not stated as uncontrolled 250.01 [facility] [place] [id number] [address] Feb, [facility] [place] [id number] [place] [address] 15147- 2229 Oct, [facility] [place] [id number] [place] [address] 88567- 6545 Oct, [facility] [place] [id number] [place] [address] 45265- 0366 Apr, [facility] [place] [id number] [place] [address] 65174- 2191 Apr, [facility] [place] [id number] [place] [address] 23205- 7830 Mar, [facility] [place] [id number] [place] [address] 65142- 3667 Mar, [facility] [place] [address] [address] 8915 Mar, [facility] [place] [address] [address] 1899 Jan, [facility] [place] [address], [place] [address]- 4455 Dec, [facility] [place] [address] [address]- 9331 Dec, [facility] [place] [address], [place] [address]- 7459 Sep, [facility] [place] [id number] [address]- 6668 Sep, [facility] [place] [address], [place] [address]- 4612 Aug, [facility] [place] [id number] [address]- 3495 10 Aug, 2011 [facility] [address] [address]- 4967 Jul, [facility] [address], [place] [address] 3216 Jul, [facility] [address], [place] [address]- 5963 16 Jun, 2011 [facility] [address] [address]- 6957 Jun, [facility] [address] [place] [address] 17927- 0774 Jun, [facility] [id number] [place] [address] 64822- 6630 May, [facility] [id number] [place] [address] 306420- 1304 May, [facility] [address], [place] [address]- 1468 May, [facility] [id number] [place] [address] 253962- 1379 Apr, [facility] [address] [address]- 2703 Apr, [facility] [address] Sep, [facility] [address], [place] [address]- 9055 Sep, [facility] [address], [place] [address]- 1530 Jun, IMMUNIZATIONS No Known Immunizations SOCIAL HISTORY Never Assessed REASON FOR VISIT Denied Refill Request PLAN OF CARE VITAL SIGNS MEDICATIONS Unknown Medications RESULTS No Results PROCEDURES No Known procedures INSTRUCTIONS MEDICATIONS ADMINISTERED No Known Medications MEDICAL (GENERAL) HISTORY Type Description Date Medical History type I diabetes Medical History Hx of DKA Surgical History dental caps 2000 Surgical History urethral stretch Hospitalization History December 2014 @ [facility] for diabetes Hospitalization History mult times as infant for breathing problems Hospitalization History [facility] diabetes dx 08/30/2011 Hospitalization History DKA with resultant dehydration noncompliance--[facility] 12/26/15 Hospitalization History [facility] 01/06/17 Hospitalization History DKA-[facility] 12/2017
[2018-05-06] MEDS ORDERED: NS IV 1000 ML 1,000 ML ONE ×2 (00:43→05:08)
[2018-05-06] MEDS ORDERED: NS IV 1000 ML 1,000 ML IV SCH ×3 (01:34→07:26)
[2018-05-06 01:41] LABS: BASOPHILS # (AUTO) 0.1 10^3/uL (0.0-0.1); BASOPHILS % (AUTO) 1 % (0-10); EOSINOPHILS % (AUTO) 0 % (0-10); HEMATOCRIT 46 % (40-54); HEMOGLOBIN 15.6 G/DL (13.3-17.7); LYMPHOCYTES # (AUTO) 3.6 X 10^3 (1.0-4.0); LYMPHOCYTES % (AUTO) 33 % (12-44); MEAN CORPUSCULAR HEMOGLOBIN 34 PG (25-34); MEAN CORPUSCULAR HGB CONC 34 G/DL (32-36); MEAN CORPUSCULAR VOLUME 101 FL (80-99); MONOCYTES # (AUTO) 0.6 X 10^3 (0.0-1.0); MONOCYTES % (AUTO) 5 % (0-12); NEUTROPHILS # (AUTO) 6.8 X 10^3 (1.8-7.8); NEUTROPHILS % (AUTO) 61 % (42-75); PLATELET COUNT 450 10^3/uL (130-400); RED CELL DISTRIBUTION WIDTH 13.9 % (10.0-14.5); WHITE BLOOD COUNT 11.1 10^3/uL (4.3-11.0)
--- NOTE | 2018-05-06 01:41 | ED GI ---
General Chief Complaint: Glucose Problems Stated Complaint: N,V,WEAKNESS Source of Information: Patient Exam Limitations: No Limitations History of Present Illness Date Seen by Provider: May 06, 2018 Time Seen by Provider: 01:29 Initial Comments The patient presents to ER by private conveyance with chief complaint that he thinks he is in diabetic ketoacidosis. For one days begin to feel worse with some abdominal pain 8 out of 10 all over and nausea with multiple bouts of vomiting. He's been in diabetic ketoacidosis before. He is a type I diabetic without appropriate pear source and so he can afford his Humalog sliding scale but he cannot afford the long-acting insulin. He follows with a doctor at [facility] but he doesn't know their name. He says they were going to refer him to a early childhood educator aide. He does not follow with an corporate law assistant. He is not having any diarrhea fevers cough. He says he's feeling very foggy right now and having a hard time thinking because about dehydrated he feels. Patient takes his Humalog on a sliding scale not a pump. Allergies and Home Medications Allergies Coded Allergies: No Known Drug Allergies (Unverified , 03/30/11) Home Medications Insulin Determir 1,000 Units/10 Ml Soln, 30 UNITS SQ HS PRN for If pump not working Prescribed by: TIMOTHY SOTO on 12/26/17 0930 Insulin Lispro 100 Unit/1 Ml Vial, 0 SC PER INSULIN PUMP 1.2/hour BASAL. 1 unit/10 carbs with meals. Prescribed by: TIMOTHY SOTO on 12/26/17 0923 Patient Home Medication List Home Medication List Reviewed: Yes Review of Systems Review of Systems Constitutional: No chills, No diaphoresis, No fever, No malaise EENTM: No Blurred Vision, No Double Vision Respiratory: Cough; Denies Shortness of Air Cardiovascular: Denies Chest Pain, Denies Edema Gastrointestinal: See HPI; Denies Abdomen Distended; Abdominal Pain; Denies Constipated, Denies Diarrhea; Nausea, Poor Appetite, Poor Fluid Intake, Vomiting Genitourinary: Denies Burning, Denies Discharge Musculoskeletal: No back pain, No joint pain Skin: No pruritus, No rash Psychiatric/Neurological: Denies Headache, Denies Numbness Past Hefrtjt-Tqkvni-Bkneie Hx Patient Social History Alcohol Use: Denies Use Recreational Drug Use: Yes Drug of Choice: pot Smoking Status: Current Everyday Smoker Type Used: Cigars 2nd Hand Smoke Exposure: Yes Recent Foreign Travel: No Contact w/Someone Who Travel: No Recent Hopitalizations: Yes (JANUARY 2017 DKA ) Immunizations Up To Date Tetanus Booster (TDap): Unknown PED Vaccines UTD: No Date of Pneumonia Vaccine: Jan 06, 2015 Seasonal Allergies Seasonal Allergies: Yes Past Medical History Surgeries: Yes (urethral stretch) Respiratory: No Currently Using CPAP: No Currently Using BIPAP: No Cardiac: No Neurological: No Reproductive Disorders: No Sexually Transmitted Disease: No HIV/AIDS: No Genitourinary: No Gastrointestinal: No Gastroesophageal Reflux Musculoskeletal: No Endocrine: Yes (Type I diabetes) Diabetes, Insulin dep HEENT: No Cancer: No Did You Recieve Any Treatments: No Psychosocial: Yes Anxiety, Depression Blood Disorders: No Adverse Reaction/Blood Tranf: No Family Medical History Patient reports no known family medical history. No Pertinent Family Hx Physical Exam Vital Signs Capillary Refill : Height/Weight/BMI Height: 6'4.00" Weight: 170lbs. 0.0oz. 77.877698pg; 20.7 BMI Method:Stated General Appearance: moderate distress, thin HEENT: PERRL/EOMI, normal ENT inspection; No pharynx normal (oropharynx mucosa is dry) Neck: non-tender, full range of motion, normal inspection Respiratory: chest non-tender, lungs clear, normal breath sounds, no respiratory distress, no accessory muscle use Cardiovascular: normal peripheral pulses, regular rate, rhythm, no edema, tachycardia Peripheral Pulses: 2+ Radial Pulses (R), 2+ Radial Pulses (L) Gastrointestinal: normal bowel sounds, soft, tenderness (mild diffuse but sagar Midepigastric) Extremities: normal range of motion, non-tender, normal inspection, normal capillary refill Progress/Results/Core Measures Results/Orders Lab Results Laboratory Tests Test 05/06/18 00:22 05/06/18 00:27 05/06/18 01:10 Range/Units Glucometer 573 *H 70-110 MG/DL White Blood Count 11.1 H 4.3-11.0 10^3/uL Red Blood Count 4.60 4.35-5.85 10^6/uL Hemoglobin 15.6 13.3-17.7 G/DL Hematocrit 46 40-54 % Mean Corpuscular Volume 101 H 80-99 FL Mean Corpuscular Hemoglobin 34 25-34 PG Mean Corpuscular Hemoglobin Concent 34 32-36 G/DL Red Cell Distribution Width 13.9 10.0-14.5 % Platelet Count 450 H 130-400 10^3/uL Mean Platelet Volume 11.0 H 7.4-10.4 FL Neutrophils (%) (Auto) 61 42-75 % Lymphocytes (%) (Auto) 33 12-44 % Monocytes (%) (Auto) 5 0-12 % Eosinophils (%) (Auto) 0 0-10 % Basophils (%) (Auto) 1 0-10 % Neutrophils # (Auto) 6.8 1.8-7.8 X 10^3 Lymphocytes # (Auto) 3.6 1.0-4.0 X 10^3 Monocytes # (Auto) 0.6 0.0-1.0 X 10^3 Eosinophils # (Auto) 0.0 0.0-0.3 10^3/uL Basophils # (Auto) 0.1 0.0-0.1 10^3/uL Sodium Level 133 L 135-145 MMOL/L Potassium Level 5.0 3.6-5.0 MMOL/L Chloride Level 92 L 98-107 MMOL/L Carbon Dioxide Level 6 *L 21-32 MMOL/L Anion Gap 35 H 5-14 MMOL/L Blood Urea Nitrogen 18 7-18 MG/DL Creatinine 1.73 H 0.60-1.30 MG/DL Estimat Glomerular Filtration Rate 51 BUN/Creatinine Ratio 10 Glucose Level 645 *H 70-105 MG/DL Calcium Level 9.8 8.5-10.1 MG/DL Corrected Calcium 8.5-10.1 MG/DL Magnesium Level 2.2 1.8-2.4 MG/DL Total Bilirubin 0.8 0.1-1.0 MG/DL Aspartate Amino Transf (AST/SGOT) 747 H 5-34 U/L Alanine Aminotransferase (ALT/SGPT) 470 H 0-55 U/L Alkaline Phosphatase 181 H 40-136 U/L Total Protein 8.5 H 6.4-8.2 GM/DL Albumin 5.1 H 3.2-4.5 GM/DL Lipase 14 8-78 U/L Urine Color YELLOW Urine Clarity CLEAR Urine pH 5 5-9 Urine Specific [place] 1.020 1.016-1.022 Urine Protein 2+ H NEGATIVE Urine Glucose (UA) 4+ H NEGATIVE Urine Ketones 4+ H NEGATIVE Urine Nitrite NEGATIVE NEGATIVE Urine Bilirubin NEGATIVE NEGATIVE Urine Urobilinogen NORMAL NORMAL MG/DL Urine Leukocyte Esterase NEGATIVE NEGATIVE Urine RBC (Auto) NEGATIVE NEGATIVE Urine RBC NONE /HPF Urine WBC NONE /HPF Urine Squamous Epithelial Cells 0-2 /HPF Urine Crystals NONE /LPF Urine Bacteria TRACE /HPF Urine Casts NONE /LPF Urine Mucus SMALL H /LPF Urine Culture Indicated NO Urine Opiates Screen NEGATIVE NEGATIVE Urine Oxycodone Screen NEGATIVE NEGATIVE Urine Methadone Screen NEGATIVE NEGATIVE Urine Propoxyphene Screen NEGATIVE NEGATIVE Urine Barbiturates Screen NEGATIVE NEGATIVE Ur Tricyclic Antidepressants Screen NEGATIVE NEGATIVE Urine Phencyclidine Screen NEGATIVE NEGATIVE Urine Amphetamines Screen NEGATIVE NEGATIVE Urine Methamphetamines Screen NEGATIVE NEGATIVE Urine Benzodiazepines Screen NEGATIVE NEGATIVE Urine Cocaine Screen NEGATIVE NEGATIVE Urine Cannabinoids Screen NEGATIVE NEGATIVE My Orders Orders - MARIO MCCLENDON Ns Iv 1000 Ml (Sodium Chloride 0.9%) (05/06/18 00:43) Cbc With Automated Diff (05/06/18 01:34) Comprehensive Metabolic Panel (05/06/18 01:34) Drug Screen Stat (Urine) (05/06/18 01:34) Lactic Acid Analyzer (05/06/18 01:34) Lipase (05/06/18 01:34) Magnesium (05/06/18 01:34) Ua Culture If Indicated (05/06/18 01:34) Saline Lock/Iv-Start (05/06/18 01:34) Ns Iv 1000 Ml (Sodium Chloride 0.9%) (05/06/18 01:34) Ondansetron Injection (Zofran Injectio (05/06/18 01:45) Fentanyl Injection (Sublimaze Injection (05/06/18 01:45) Pantoprazole Injection (Protonix Injecti (05/06/18 01:45) Insulin (Regular) Human (Humulin R (Per (05/06/18 02:15) Medications Given in ED Current Medications Medications Dose Ordered Sig/Bhavin Route Start Time Stop Time Status Last Admin Dose Admin Sodium Chloride 1,000 ml @ ud STK-MED ONCE .ROUTE 05/06/18 00:43 05/06/18 00:44 DC 05/06/18 00:59 1,000 MLS/HR Progress Progress Note : Time: 01:40 Progress Note IV pantoprazole, Zofran, fentanyl for his symptoms. We'll start off with 2 L of IV fluids. Accu-Chek demonstrates above 500 blood glucose. We'll give him some regular insulin as soon as we see what his potassium is and then put him up for presumably DKA after we see the urinalysis. Diagnostic Imaging Diagonstic Imaging: Xray Plain Films/CT/US/NM/MRI: chest (1v) Comments No acute cardiopulmonary processes evident. Reviewed: Reviewed by Me Departure Communication (Admissions) Time/Spoke to Admitting Phy: 02:06 Discussed case lab imaging findings with Dr. Guerrier and she accepted the patient to the ICU for DKA treatment. Impression Primary Impression: DKA (diabetic ketoacidoses) Qualified Codes: E10.10 - Type 1 diabetes mellitus with ketoacidosis without coma Additional Impression: Type 1 diabetes mellitus Qualified Codes: E10.8 - Type 1 diabetes mellitus with unspecified complications Disposition: ADMITTED INPATIENT Condition: Stable Admissions Decision to Admit Reason: Admit from ER (General) Decision to Admit/Date: May 06, 2018 Time/Decision to Admit Time: 02:06 Departure-Patient Inst. Referrals: [facility] (PCP/Family) Primary Care Physician Copy Copies To 1: JAMIA RIGGINS TITUS J May 06, 2018 01:41
[2018-05-06] MEDS ORDERED: ONDANSETRON 4 MG/2 ML (SDV) Z0FRAN IVP ONE (01:45)
[2018-05-06] MEDS ORDERED: PANTOPRAZOLE 40 MG (PROTONIX) VIAL IV ONE (01:45)
[2018-05-06] MEDS ORDERED: fentaNYL INJECTION 100 MCG/2 ML AMP IVP ONE (01:45)
[2018-05-06 01:46] LABS: BILIRUBIN,URINE NEGATIVE (NEGATIVE); CLARITY,URINE CLEAR; COLOR,URINE YELLOW; GLUCOSE, URINE (UA) 4+ (NEGATIVE); KETONES,URINE 4+ (NEGATIVE); LEUKOCYTE ESTERASE ,URINE NEGATIVE (NEGATIVE); NITRITE,URINE NEGATIVE (NEGATIVE); PH,URINE 5 (5-9); PROTEIN,URINE 2+ (NEGATIVE); UROBILINOGEN,URINE NORMAL (NORMAL)
[2018-05-06 01:53] LABS: BACTERIA,URINE TRACE /HPF; SQUAMOUS EPITHELIAL CELL,UR 0-2 /HPF
[2018-05-06 01:56] LABS: AMPHETAMINE SCREEN, URINE NEGATIVE (NEGATIVE); BARBITURATE SCREEN URINE NEGATIVE (NEGATIVE); BENZODIAZEPINES SCREEN URINE NEGATIVE (NEGATIVE); CANNABINOID SCREEN, URINE NEGATIVE (NEGATIVE); COCAINE SCREEN URINE NEGATIVE (NEGATIVE); METHAMPHETAMINE SCREEN URINE S NEGATIVE (NEGATIVE); OPIATE SCREEN URINE NEGATIVE (NEGATIVE)
[2018-05-06 01:56] LABS: ALANINE AMINOTRANSFERASE 470 U/L (0-55); ALBUMIN 5.1 GM/DL (3.2-4.5); ALKALINE PHOSPHATASE 181 U/L (40-136); BILIRUBIN,TOTAL 0.8 MG/DL (0.1-1.0); BUN/CREATININE RATIO 10; CALCIUM 9.8 MG/DL (8.5-10.1); CHLORIDE 92 MMOL/L (98-107); CREATININE SERUM 1.73 MG/DL (0.60-1.30); GFR ESTIMATED 51; LIPASE 14 U/L (8-78); MAGNESIUM 2.2 MG/DL (1.8-2.4); SODIUM 133 MMOL/L (135-145); TOTAL PROTEIN 8.5 GM/DL (6.4-8.2)
[2018-05-06 01:57] LABS: METHADONE STAT NEGATIVE (NEGATIVE); OXYCODONE STAT NEGATIVE (NEGATIVE); PROPOXYPHENE STAT NEGATIVE (NEGATIVE); TRICYCLIC ANTIDEPRESSANTS SCRE NEGATIVE (NEGATIVE)
[2018-05-06 01:59] LABS: CARBON DIOXIDE 6 MMOL/L (21-32); GLUCOSE 645 MG/DL (70-105)
[2018-05-06] MEDS ORDERED: inSUlin (REGULAR) HUMAN 1 UNIT/0.01 ML (CHARGE PER UNIT) ONE ×2 (02:04→03:42)
[2018-05-06] MEDS ORDERED: inSUlin (REGULAR) HUMAN 1 UNIT/0.01 ML (CHARGE PER UNIT) IV ONE (02:15)
[2018-05-06] MEDS ORDERED: NORMAL SALINE 250 ML ONE (03:40)
[2018-05-06] MEDS: REGULAR inSUlin DRIP 250 UNITS/NS 250 ML IV SCH ×2 (04:45)
[2018-05-06] MEDS ORDERED: DEXTROSE 10% IV SOLUTION 1,000 ML IV SCH (06:15)
[2018-05-06] MEDS ORDERED: D5 1/2 NS W/KCL 20 MEQ/L 1,000 ML IV SCH (06:15)
[2018-05-06] MEDS ORDERED: fentaNYL INJECTION 100 MCG/2 ML AMP IV PRN ×2 (06:15)
[2018-05-06] MEDS ORDERED: ONDANSETRON 4 MG/2 ML (SDV) Z0FRAN IV PRN (06:15)
[2018-05-06] MEDS ORDERED: 1/2 NS W/KCL 20 MEQ/L 1,000 ML IV SCH (06:15)
[2018-05-06] MEDS ORDERED: NS IV 1000 ML X 1 WIDE OPEN IV ONE (06:15)
[2018-05-06] MEDS ORDERED: POTASSIUM CL 10MEQ/50ML IVPB X 4 (TOTAL 40 MEQ) IV PRN (06:30)
--- NOTE | 2018-05-06 07:26 | Pulmonary Consultation ---
History of Present Illness History of Present Illness Date of Consultation 05/06/18 07:25 Date of Admission Allergies and Home Medications Allergies Coded Allergies: No Known Drug Allergies (Unverified , 03/30/11) Home Medications Insulin Determir 1,000 Units/10 Ml Soln, 30 UNITS SQ HS PRN for If pump not working Prescribed by: TIMOTHY SOTO on 12/26/17 0930 Insulin Lispro 100 Unit/1 Ml Vial, 0 SC PER INSULIN PUMP 1.2/hour BASAL. 1 unit/10 carbs with meals. Prescribed by: TIMOTHY SOTO on 12/26/17 0923 Past Cujlfip-Ozbzoi-Joptur Hx Patient Social History Alcohol Use: Denies Use Recreational Drug Use: Yes Drug of Choice: pot Smoking Status: Current Everyday Smoker Type Used: Cigars 2nd Hand Smoke Exposure: Yes Recent Foreign Travel: No Contact w/Someone Who Travel: No Recent Infectious Disease Expo: No Recent Hopitalizations: Yes (JANUARY 2017 DKA ) Physical Abuse: No Sexual Abuse: No Mistreated: No Fear: No Immunizations Up To Date Tetanus Booster (TDap): Unknown PED Vaccines UTD: No Date of Pneumonia Vaccine: Jan 06, 2015 Seasonal Allergies Seasonal Allergies: Yes Past Medical History Surgeries: Yes (urethral stretch) Respiratory: No Currently Using CPAP: No Currently Using BIPAP: No Cardiac: No Neurological: No Reproductive Disorders: No Sexually Transmitted Disease: No HIV/AIDS: No Genitourinary: No Gastrointestinal: No Gastroesophageal Reflux Musculoskeletal: No Endocrine: Yes (Type I diabetes) Diabetes, Insulin dep HEENT: No Cancer: No Did You Recieve Any Treatments: No Psychosocial: Yes Anxiety, Depression Integumentary: No (bug bites, healing) Blood Disorders: No Adverse Reaction/Blood Tranf: No Family Medical History Patient reports no known family medical history. No Pertinent Family Hx Sepsis Event Evaluation Height, Weight, BMI Height: 6'4.00" Weight: 147lbs. 4.0oz. 66.740188oj; 17.9 BMI Method:Stated Exam Exam Vital Signs Date Time Temp Pulse Resp B/P (MAP) Pulse Ox O2 Delivery O2 Flow Rate FiO2 05/06/18 06:00 135 22 119/92 (101) 100 Room Air 05/06/18 05:00 111 21 140/76 (97) 100 Room Air 05/06/18 04:51 112 05/06/18 04:30 98.4 104 18 126/88 (101) 100 I & O 05/06/18 06:59 Intake Total 1000 ml Balance 1000 ml Height & Weight Height: 6'4.00" Weight: 147lbs. 4.0oz. 66.909693ht; 17.9 BMI Method:Stated Capillary Refill: Less Than 3 Seconds Peripheral Pulses: 2+ Radial Pulses (R), 2+ Radial Pulses (L) Gastrointestinal: normal bowel sounds, soft, tenderness (mild diffuse but sagar Midepigastric) Results Lab Laboratory Tests 05/06/18 00:27 Assessment/Plan Assessment/Plan Acute DKA -DKA protocol Marijuana use/tobacco use -education LAURA SWAN DO May 06, 2018 07:26
[2018-05-06 07:41] LABS: BUN/CREATININE RATIO 11; CALCIUM 8.7 MG/DL (8.5-10.1); CHLORIDE 106 MMOL/L (98-107); CREATININE SERUM 1.25 MG/DL (0.60-1.30); GFR ESTIMATED > 60; GLUCOSE 285 MG/DL (70-105); POTASSIUM 4.8 MMOL/L (3.6-5.0); SODIUM 136 MMOL/L (135-145)
[2018-05-06 07:44] LABS: CARBON DIOXIDE 6 MMOL/L (21-32)
[2018-05-06] MEDS ORDERED: FLU QUADRIvalent (5+ YOA) 2018-2019 (AFLURIA) 0.5 ML IM ONE (08:15)
[2018-05-06] MEDS: POTASSIUM CL 10MEQ/50ML IVPB 50 ML IV SCH ×9 (09:19→23:30)
[2018-05-06] MEDS: 1/2 NS IV SOLUTION 1,000 ML IV SCH ×4 (09:20→20:40)
[2018-05-06] MEDS ORDERED: INSU100V SQ (09:40)
[2018-05-06 10:03] LABS: BUN/CREATININE RATIO 9; CALCIUM 8.8 MG/DL (8.5-10.1); CHLORIDE 106 MMOL/L (98-107); GFR ESTIMATED > 60; GLUCOSE 131 MG/DL (70-105); POTASSIUM 5.3 MMOL/L (3.6-5.0); SODIUM 134 MMOL/L (135-145)
[2018-05-06 10:06] LABS: CARBON DIOXIDE 8 MMOL/L (21-32)
--- NOTE | 2018-05-06 10:33 | History & Physical-Hospitalist ---
ANA PAULA HERNÁNDEZ DO 05/06/18 1033: History of Present Illness HPI/Chief Complaint CC: Acute DKA HPI: This is a 22yoWM with DM Type 1 who presented to the ER w/abdominal pain and nausea and vomiting who was evaluated and found to have severe DKA. Patient was placed on protocol with IVF and insulin drip. Currently he is tired but he feels better. He works at [employer] and his boss is aware of his hospitalization. Source: patient Exam Limitations: no limitations Date Seen 05/06/18 Time Seen by a Provider: 09:50 Attending Physician Ana Paula Hernández DO [place] [place] Referring Physician Date of Admission May 06, 2018 at 04:00 Home Medications & Allergies Home Medications Reviewed patient Home Medication Reconciliation performed by pharmacy medication reconciliations distribution technician and/or nursing. Patients Allergies have been reviewed. Allergies Allergies Coded Allergies No Known Drug Allergies (Unverified03/30/11) Past Zmswlve-Qclvqy-Dzrsic Hx Past Med/Social Hx: Reviewed Nursing Past Med/Soc Hx, Reviewed and Corrections made Patient Social History Marrital Status: single Employed/Student: employed Alcohol Use: Denies Use Recreational Drug Use: Yes Drug of Choice: pot Smoking Status: Current Someday Smoker Type Used: Cigarettes 2nd Hand Smoke Exposure: Yes Physical Abuse Screen: No Sexual Abuse: No Recent Foreign Travel: No Contact w/other who traveled: No Recent Hopitalizations: No Recent Infectious Disease Expo: No Immunizations Up To Date Tetanus Booster (TDap): Unknown Pediatric: No Date of Pneumonia Vaccine: Jan 06, 2015 Seasonal Allergies Seasonal Allergies: Yes Past Medical History Currently Using CPAP: No Currently Using BIPAP: No Reproductive: No Sexually Transmitted Disease: No HIV/AIDS: No Gastrointestinal: Gastroesophageal Reflux Endocrine: Diabetes, Insulin dep Are Your Blood Sugars Over 250: Yes Did You Recieve Any Treatments: No Psychosocial: Anxiety, Depression History of Blood Disorders: No Adverse Reaction to Blood Mathews: No Family History Patient reports no known family medical history. No Pertinent Family Hx Review of Systems Constitutional: see HPI, dizziness, malaise, weakness EENTM: no symptoms reported Respiratory: no symptoms reported Cardiovascular: no symptoms reported Gastrointestinal: loss of appetite, nausea, vomiting Genitourinary: no symptoms reported Musculoskeletal: no symptoms reported Skin: no symptoms reported Psychiatric/Neurological: No Symptoms Reported All Other Systems Reviewed Negative Unless Noted: Yes Physical Exam Physical Exam Vital Signs Vital Signs - First Documented 05/06/18 05/06/18 00:25 04:25 Temp 98.6 Pulse 106 Resp 18 B/P (MAP) 151/89 (109) Pulse Ox 100 O2 Delivery Room Air Capillary Refill : Less Than 3 Seconds Height, Weight, BMI Height: 6'4.00" Weight: 147lbs. 4.0oz. 66.693008df; 17.9 BMI Method:Stated General Appearance: No Apparent Distress, WD/WN, Chronically ill, Thin Eyes: Bilateral Eye Normal Inspection, Bilateral Eye PERRL HEENT: PERRL/EOMI, TMs Normal, Normal ENT Inspection, Pharynx Normal Neck: Full Range of Motion, Normal Inspection, Non Tender, Supple, Carotid Bruit Respiratory: Chest Non Tender, Lungs Clear, Normal Breath Sounds, No Accessory Muscle Use, No Respiratory Distress Cardiovascular: Regular Rate, Rhythm, No Edema, No Gallop, No JVD, No Murmur, Normal Peripheral Pulses Gastrointestinal: Normal Bowel Sounds, No Organomegaly, No Pulsatile Mass, Non Tender, Soft Back: Normal Inspection, No CVA Tenderness, No Vertebral Tenderness Extremity: Normal Capillary Refill, Normal Inspection, Normal Range of Motion, Non Tender, No Calf Tenderness, No Pedal Edema Neurologic/Psychiatric: Alert, Oriented x3, No Motor/Sensory Deficits, Normal Mood/Affect Skin: Normal Color, Warm/Dry Lymphatic: No Adenopathy Results Results/Procedures Labs Laboratory Tests 05/06/18 00:27 05/06/18 07:15 05/06/18 09:40 05/06/18 13:16 Patient resulted labs reviewed. Assessment/Plan Admission Diagnosis Assessment: DKA Smoker HCV Plan: IV insulin IVF Admission Status: Inpatient Order (span 2 midnights) Reason for Inpatient Admission: Severe DKA will require 3 days of IV insulin Diagnosis/Problems Diagnosis/Problems (1) DKA (diabetic ketoacidoses) Status: Acute Qualifiers: Diabetes mellitus type: type 1 Diabetes mellitus complication detail: without coma Qualified Codes: E10.10 - Type 1 diabetes mellitus with ketoacidosis without coma (2) Nausea and vomiting Status: Acute Qualifiers: Vomiting type: unspecified Vomiting Intractability: intractable Qualified Codes: R11.2 - Nausea with vomiting, unspecified (3) Smoker Status: Chronic (4) Hepatitis C Status: Chronic Qualifiers: Viral hepatitis chronicity: chronic Hepatic coma status: without hepatic coma Qualified Codes: B18.2 - Chronic viral hepatitis C Clinical Quality Measures DVT/VTE Risk/Contraindication: Risk Factor Score Per Nursin RFS Level Per Nursing on Admit: 1=Low/No VTE PPX KEL SANTANA MED STUDENT 05/06/18 1530: History of Present Illness HPI/Chief Complaint CC: Abdominal pain HPI: The patient is a 22 y/o male who presented to the ED this morning due to significant abdominal pain. He is a type I diabetic and believed that he is in diabetic ketoacidosis. The patient states that he has had increasing abdominal pain with nausea and vomiting prior to admission. He is a tobacco user krishna smokes about 6 cigarettes per day. He states that he rarely drinks alcohol. He admits to recreational drug use of marijuana. This morning he state that he is feeling a little better and is not in pain. The patient claims no symptoms of nausea, vomiting, or diarrhea. He does not report shortness of breath or headache. Home Medications & Allergies Home Medications Insulin Determir 1,000 Units/10 Ml Soln, 30 UNITS SQ HS PRN for If pump not working Prescribed by: TIMOTHY SOTO on 12/26/17 0930 Insulin Lispro 100 Unit/1 Ml Vial, 0 SC PER INSULIN PUMP 1.2/hour BASAL. 1 unit/10 carbs with meals. Prescribed by: TIMOTHY SOTO on 12/26/17 0923 Allergies Allergies: No Known Drug Allergies Past Ysgauwm-Smqqgb-Qemfeq Hx Patient Social History Employed/Student: employed Alcohol Use: Rarely Uses Recreational Drug Use: Yes Type Used: Cigarettes 2nd Hand Smoke Exposure: Yes Recent Foreign Travel: No Contact w/other who traveled: No Recent Hopitalizations: No Recent Infectious Disease Expo: No Seasonal Allergies Seasonal Allergies: Yes Past Medical History Currently Using CPAP: No Currently Using BIPAP: No Gastrointestinal: Gastroesophageal Reflux Endocrine: Diabetes, Insulin dep Are Your Blood Sugars Over 250: Yes Psychosocial: Anxiety, Depression Family History Patient reports no known family medical history. Review of Systems Respiratory: no symptoms reported Cardiovascular: no symptoms reported Musculoskeletal: no symptoms reported Physical Exam Physical Exam General Appearance: No Apparent Distress, WD/WN, Thin HEENT: PERRL/EOMI, TMs Normal, Normal ENT Inspection, Pharynx Normal Respiratory: Chest Non Tender, Lungs Clear, Normal Breath Sounds, No Accessory Muscle Use, No Respiratory Distress Cardiovascular: Regular Rate, Rhythm, No Edema, No Gallop, No JVD, No Murmur Neurologic/Psychiatric: Alert, Oriented x3, No Motor/Sensory Deficits, Normal Mood/Affect Skin: Normal Color, Warm/Dry Lymphatic: No Adenopathy Results Results/Procedures Labs Lab Results Laboratory Tests Test 05/06/18 00:22 05/06/18 00:27 05/06/18 01:10 Range/Units Glucometer 573 *H 70-110 MG/DL White Blood Count 11.1 H 4.3-11.0 10^3/uL Red Blood Count 4.60 4.35-5.85 10^6/uL Hemoglobin 15.6 13.3-17.7 G/DL Hematocrit 46 40-54 % Mean Corpuscular Volume 101 H 80-99 FL Mean Corpuscular Hemoglobin 34 25-34 PG Mean Corpuscular Hemoglobin Concent 34 32-36 G/DL Red Cell Distribution Width 13.9 10.0-14.5 % Platelet Count 450 H 130-400 10^3/uL Mean Platelet Volume 11.0 H 7.4-10.4 FL Neutrophils (%) (Auto) 61 42-75 % Lymphocytes (%) (Auto) 33 12-44 % Monocytes (%) (Auto) 5 0-12 % Eosinophils (%) (Auto) 0 0-10 % Basophils (%) (Auto) 1 0-10 % Neutrophils # (Auto) 6.8 1.8-7.8 X 10^3 Lymphocytes # (Auto) 3.6 1.0-4.0 X 10^3 Monocytes # (Auto) 0.6 0.0-1.0 X 10^3 Eosinophils # (Auto) 0.0 0.0-0.3 10^3/uL Basophils # (Auto) 0.1 0.0-0.1 10^3/uL Sodium Level 133 L 135-145 MMOL/L Potassium Level 5.0 3.6-5.0 MMOL/L Chloride Level 92 L 98-107 MMOL/L Carbon Dioxide Level 6 *L 21-32 MMOL/L Anion Gap 35 H 5-14 MMOL/L Blood Urea Nitrogen 18 7-18 MG/DL Creatinine 1.73 H 0.60-1.30 MG/DL Estimat Glomerular Filtration Rate 51 BUN/Creatinine Ratio 10 Glucose Level 645 *H 70-105 MG/DL Calcium Level 9.8 8.5-10.1 MG/DL Corrected Calcium 8.5-10.1 MG/DL Magnesium Level 2.2 1.8-2.4 MG/DL Total Bilirubin 0.8 0.1-1.0 MG/DL Aspartate Amino Transf (AST/SGOT) 747 H 5-34 U/L Alanine Aminotransferase (ALT/SGPT) 470 H 0-55 U/L Alkaline Phosphatase 181 H 40-136 U/L Total Protein 8.5 H 6.4-8.2 GM/DL Albumin 5.1 H 3.2-4.5 GM/DL Lipase 14 8-78 U/L Urine Color YELLOW Urine Clarity CLEAR Urine pH 5 5-9 Urine Specific Breaks 1.020 1.016-1.022 Urine Protein 2+ H NEGATIVE Urine Glucose (UA) 4+ H NEGATIVE Urine Ketones 4+ H NEGATIVE Urine Nitrite NEGATIVE NEGATIVE Urine Bilirubin NEGATIVE NEGATIVE Urine Urobilinogen NORMAL NORMAL MG/DL Urine Leukocyte Esterase NEGATIVE NEGATIVE Urine RBC (Auto) NEGATIVE NEGATIVE Urine RBC NONE /HPF Urine WBC NONE /HPF Urine Squamous Epithelial Cells 0-2 /HPF Urine Crystals NONE /LPF Urine Bacteria TRACE /HPF Urine Casts NONE /LPF Urine Mucus SMALL H /LPF Urine Culture Indicated NO Urine Opiates Screen NEGATIVE NEGATIVE Urine Oxycodone Screen NEGATIVE NEGATIVE Urine Methadone Screen NEGATIVE NEGATIVE Urine Propoxyphene Screen NEGATIVE NEGATIVE Urine Barbiturates Screen NEGATIVE NEGATIVE Ur Tricyclic Antidepressants Screen NEGATIVE NEGATIVE Urine Phencyclidine Screen NEGATIVE NEGATIVE Urine Amphetamines Screen NEGATIVE NEGATIVE Urine Methamphetamines Screen NEGATIVE NEGATIVE Urine Benzodiazepines Screen NEGATIVE NEGATIVE Urine Cocaine Screen NEGATIVE NEGATIVE Urine Cannabinoids Screen NEGATIVE NEGATIVE Assessment/Plan Admission Diagnosis Assessment: 1) Diabetic Ketoacidosis 2) Diabetes 3) Hepatitis C Plan: 1) Admit for observation 2) IVF 3) Insulin drip 4) Referral to [facility] for Hep C and diabetes counseling ANA PAULA HERNÁNDEZ DO May 06, 2018 10:33 KEL SANTANA MED STUDENT May 06, 2018 15:30
[2018-05-06] MEDS: D5 1/2 NS 1000 ML IV SOLUTION 1,000 ML IV SCH ×3 (12:36→21:23)
[2018-05-06 13:43] LABS: BUN/CREATININE RATIO 9; CALCIUM 8.7 MG/DL (8.5-10.1); CARBON DIOXIDE 13 MMOL/L (21-32); CHLORIDE 104 MMOL/L (98-107); CREATININE SERUM 1.05 MG/DL (0.60-1.30); GFR ESTIMATED > 60; GLUCOSE 238 MG/DL (70-105); POTASSIUM 4.5 MMOL/L (3.6-5.0); SODIUM 132 MMOL/L (135-145)
[2018-05-06 21:30] LABS: BUN/CREATININE RATIO 9; CALCIUM 8.5 MG/DL (8.5-10.1); CARBON DIOXIDE 13 MMOL/L (21-32); CHLORIDE 103 MMOL/L (98-107); CREATININE SERUM 0.95 MG/DL (0.60-1.30); GFR ESTIMATED > 60; GLUCOSE 231 MG/DL (70-105); POTASSIUM 3.9 MMOL/L (3.6-5.0); SODIUM 132 MMOL/L (135-145)
[2018-05-07] VITALS (22 sets, daily range): BP systolic 108–145; BP diastolic 60–95
[2018-05-07] MEDS: 1/2 NS IV SOLUTION 1,000 ML IV SCH ×6 (00:10→20:56)
[2018-05-07] MEDS: POTASSIUM CL 10MEQ/50ML IVPB 50 ML IV SCH ×9 (01:29→10:24)
[2018-05-07] MEDS: D5 1/2 NS 1000 ML IV SOLUTION 1,000 ML IV SCH ×2 (01:29→05:37)
[2018-05-07 03:46] LABS: BASOPHILS % (AUTO) 0 % (0-10); EOSINOPHILS # (AUTO) 0.2 10^3/uL (0.0-0.3); EOSINOPHILS % (AUTO) 2 % (0-10); HEMATOCRIT 35 % (40-54); HEMOGLOBIN 11.8 G/DL (13.3-17.7); LYMPHOCYTES # (AUTO) 3.2 X 10^3 (1.0-4.0); LYMPHOCYTES % (AUTO) 39 % (12-44); MEAN CORPUSCULAR HEMOGLOBIN 34 PG (25-34); MEAN CORPUSCULAR HGB CONC 34 G/DL (32-36); MEAN CORPUSCULAR VOLUME 99 FL (80-99); MEAN PLATELET VOLUME 9.9 FL (7.4-10.4); MONOCYTES # (AUTO) 0.6 X 10^3 (0.0-1.0); MONOCYTES % (AUTO) 8 % (0-12); NEUTROPHILS # (AUTO) 4.1 X 10^3 (1.8-7.8); NEUTROPHILS % (AUTO) 51 % (42-75); PLATELET COUNT 242 10^3/uL (130-400); RED BLOOD COUNT 3.52 10^6/uL (4.35-5.85); RED CELL DISTRIBUTION WIDTH 13.3 % (10.0-14.5); WHITE BLOOD COUNT 8.1 10^3/uL (4.3-11.0)
[2018-05-07 04:02] LABS: BUN/CREATININE RATIO 11; CALCIUM 8.6 MG/DL (8.5-10.1); CARBON DIOXIDE 18 MMOL/L (21-32); CHLORIDE 108 MMOL/L (98-107); CREATININE SERUM 0.75 MG/DL (0.60-1.30); GFR ESTIMATED > 60; GLUCOSE 102 MG/DL (70-105); MAGNESIUM 1.8 MG/DL (1.8-2.4); PHOSPHORUS 1.8 MG/DL (2.3-4.7); POTASSIUM 3.1 MMOL/L (3.6-5.0); SODIUM 138 MMOL/L (135-145)
[2018-05-07] MEDS ORDERED: KCL 20 MEQ TAB (K-DUR) PO SCH (06:00)
[2018-05-07] MEDS ORDERED: MAGNESIUM 1 GM/100 ML IVPB 100 ML IV SCH (06:00)
[2018-05-07] MEDS ORDERED: DEXTROSE 10% IV SOLUTION 1,000 ML IV ONE (06:08)
--- NOTE | 2018-05-07 06:11 | Pulmonary Progress Note ---
Subjective Time Seen by a Provider: 06:11 Subjective/Events-last exam Still on insulin gtt. No complications noted. Sepsis Event Evaluation Height, Weight, BMI Height: 6'4.00" Weight: 147lbs. 4.0oz. 66.274151ve; 17.9 BMI Method:Stated Focused Exam Lactate Level 05/06/18 03:36: Lactic Acid Level 3.39*H 05/06/18 05:40: Lactic Acid Level 3.27*H Exam Exam Vital Signs Date Time Temp Pulse Resp B/P (MAP) Pulse Ox O2 Delivery O2 Flow Rate FiO2 05/07/18 04:00 99.2 05/07/18 04:00 Room Air 05/07/18 04:00 87 13 116/64 (81) 97 Room Air 05/07/18 03:00 90 16 108/95 (99) Room Air 05/07/18 02:00 96 20 111/61 (78) Room Air 05/07/18 01:00 98 05/07/18 01:00 98 18 123/77 (92) Room Air 05/07/18 00:00 109 25 126/68 (87) Room Air 05/07/18 00:00 Room Air 05/07/18 00:00 99.0 05/06/18 23:00 99 14 126/71 (89) Room Air 05/06/18 22:00 101 21 116/63 (80) 97 Room Air 05/06/18 21:00 100 19 122/73 (89) 98 Room Air 05/06/18 20:00 Room Air 05/06/18 20:00 99.0 05/06/18 20:00 100 21 113/59 (77) 97 Room Air 05/06/18 19:00 107 15 132/74 (93) 97 Room Air 05/06/18 19:00 107 05/06/18 18:00 105 14 101/52 (68) Room Air 05/06/18 17:00 100 22 124/58 (80) 98 Room Air 05/06/18 16:15 Room Air 05/06/18 16:15 99.6 Room Air 05/06/18 16:00 98 11 126/81 (96) 100 Room Air 05/06/18 15:00 100 9 120/66 (84) 99 Room Air 05/06/18 14:00 94 14 120/64 (82) 99 Room Air 05/06/18 13:00 105 05/06/18 13:00 105 15 122/67 (85) 96 Room Air 05/06/18 12:15 Room Air 05/06/18 12:15 98.9 05/06/18 12:00 101 14 127/70 (89) 97 Room Air 05/06/18 11:00 113 19 128/69 (88) 97 Room Air 05/06/18 10:00 122 20 115/52 (73) 95 Room Air 05/06/18 09:00 103 15 116/60 (78) 97 Room Air 05/06/18 08:15 97.3 Room Air 05/06/18 08:10 Room Air 05/06/18 08:00 102 31 114/64 (81) Room Air 05/06/18 07:00 110 17 149/88 (108) 100 Room Air 05/06/18 07:00 110 I & O 05/07/18 07:00 Intake Total 5470 ml Output Total 2050 ml Balance 3420 ml Height & Weight Height: 6'4.00" Weight: 147lbs. 4.0oz. 66.321470hs; 17.9 BMI Method:Stated General Appearance: No Apparent Distress, WD/WN, Chronically ill, Thin HEENT: PERRL/EOMI, TMs Normal, Normal ENT Inspection, Pharynx Normal Neck: Full Range of Motion, Normal Inspection, Non Tender, Supple, Carotid Bruit Respiratory: Chest Non Tender, Lungs Clear, Normal Breath Sounds, No Accessory Muscle Use, No Respiratory Distress Cardiovascular: Regular Rate, Rhythm, No Edema, No Gallop, No JVD, No Murmur, Normal Peripheral Pulses Capillary Refill: Less Than 3 Seconds Peripheral Pulses: 2+ Radial Pulses (R), 2+ Radial Pulses (L) Gastrointestinal: normal bowel sounds, soft, tenderness (mild diffuse but sagar Midepigastric) Extremity: Normal Capillary Refill, Normal Inspection, Normal Range of Motion, Non Tender, No Calf Tenderness, No Pedal Edema Neurologic/Psychiatric: Alert, Oriented x3, No Motor/Sensory Deficits, Normal Mood/Affect Skin: Normal Color, Warm/Dry Lymphatic: No Adenopathy Results Lab Laboratory Tests 05/06/18 00:27 05/06/18 07:15 05/06/18 09:40 05/06/18 13:16 05/06/18 21:10 05/07/18 03:05 05/07/18 03:15 Assessment/Plan Assessment/Plan Acute DKA -DKA protocol -Change IVF to D 10W secondary to low BS -GAP is 12 and C02 is 18 -Keep insulin gtt going and recheck BMP at noon. -Will give long acting insulin 2 hrs prior to d/cing insulin gtt. Hypokalemia -replace Marijuana use/tobacco use -education LAURA SWAN DO May 07, 2018 06:11
[2018-05-07] MEDS ORDERED: POTASSIUM PHOSPHATE INJ 30 MM in NS (IVPB) 250 ML IV ONE (06:15)
[2018-05-07] MEDS ORDERED: DEXTROSE 10% IV SOLUTION 1,000 ML IV SCH (06:15)
[2018-05-07] MEDS ORDERED: DEXTROSE 50% 50 ML (IMS) SYR ONE (06:31)
[2018-05-07] MEDS: DEXTROSE 10% IV SOLUTION 1,000 ML IV SCH ×4 (06:47→18:28)
[2018-05-07] MEDS ORDERED: inSUlin DETERMIR 1 UNIT/0.01 ML (LEVEMIR) CHARGE PER UNIT SQ SCH (10:15)
[2018-05-07 12:52] LABS: BUN/CREATININE RATIO 10; CALCIUM 8.5 MG/DL (8.5-10.1); CARBON DIOXIDE 18 MMOL/L (21-32); CHLORIDE 109 MMOL/L (98-107); CREATININE SERUM 0.67 MG/DL (0.60-1.30); GFR ESTIMATED > 60; GLUCOSE 99 MG/DL (70-105); POTASSIUM 3.7 MMOL/L (3.6-5.0); SODIUM 138 MMOL/L (135-145)
[2018-05-07] MEDS: inSUlin ASPART (NovoLOG) 1 UNIT/0.01 ML (CHARGE PER UNIT) SC SCH ×3 (13:32→20:00)
[2018-05-07] MEDS ORDERED: INSU100V5 SQ (14:29)
[2018-05-07] MEDS ORDERED: INSU100V SQ (14:29)
--- NOTE | 2018-05-07 14:31 | Discharge Instructions ---
Discharge Inst-[facility] Discharge Medications New Medications: Insulin Determir (Levemir) 1,000 Units/10 Ml Soln 30 UNIT SQ DAILY, #1 EA Patient's home med Changed Medications: Insulin Lispro (Humalog) 100 Unit/1 Ml Vial 0 SQ AC, #1 VIAL (Changed from: Removed Units; LAST FILLED 01-17-18 FOR 3 MONTH SUPPLY) 1 unit for every 10g of carbs Patient Instructions Goal/Follow Up Appt: Follow up with Burt Peña APRN at [facility] 05/14/18 at 11:40am. Referral placed for Dennise Sutton, Manufacturing Sr Engineer at [facility]. Activity & Diet Discharge Diet: No Restrictions JAMIA RIGGINS DO May 07, 2018 14:31
--- NOTE | 2018-05-07 14:36 | Discharge Summary ---
Diagnosis/Chief Complaint Date of Admission May 06, 2018 at 04:00 Date of Discharge May 07, 2018 Admission Diagnosis Admission Diagnosis DKA Smoker HCV Discharge Diagnosis DKA - Pt admitted to ICU in DKA, admission BS was 573, anion gap was 35. - treated with IVF and IV insulin - 05/07/18 - BS normalized and AG closed at 11. converted to sq insulin regimen and tolerated diet DM Type 1 -continue with Levemir 30U qhs and Humalog 1U for every 10g CHO - Referral placed for Dennise Sutton for DM Ed and help with supplies Smoker HCV Chief Complaint/HPI Chief Complaint/HPI CC: Acute DKA HPI: This is a 22yoWM with DM Type 1 who presented to the ER w/abdominal pain and nausea and vomiting who was evaluated and found to have severe DKA. Patient was placed on protocol with IVF and insulin drip. Currently he is tired but he feels better. He works at [employer] and his boss is aware of his hospitalization. Discharge Summary-Simple/Stand Consultations Discharge Physical Examination Allergies: Coded Allergies: No Known Drug Allergies (Unverified , 03/30/11) Vitals & I&Os Vital Sign - Last 12Hours Date Time Temp Pulse Resp B/P (MAP) Pulse Ox O2 Delivery O2 Flow Rate FiO2 05/07/18 12:04 Room Air 05/07/18 09:00 94 12 145/84 (104) 05/07/18 08:00 97 05/07/18 04:00 99.2 Intake and Output 05/07/18 00:00 Intake Total 2930 ml Output Total 1500 ml Balance 1430 ml General Appearance: Alert, Oriented X3, Cooperative Psych/Mental Status: Mood NL Hospital Course See final discharge diagnosis. Discharge Instructions to patient/family Discharge [facility] Discharge Medications New Medications: Insulin Determir (Levemir) 1,000 Units/10 Ml Soln 30 UNIT SQ DAILY, #1 EA Patient's home med Changed Medications: Insulin Lispro (Humalog) 100 Unit/1 Ml Vial 0 SQ AC, #1 VIAL (Changed from: Removed Units; LAST FILLED 01-17-18 FOR 3 MONTH SUPPLY) 1 unit for every 10g of carbs Patient Instructions Goal/Follow Up Appt: Follow up with Burt Peña APRN at [facility] 05/14/18 at 11:40am. Referral placed for Dennise Sutton, Grader Patrol at [facility]. Activity & Diet Discharge Diet: No Restrictions Discharge Medications Reviewed and agree with Discharge Medication list on patient's Discharge Instruction sheet Clinical Quality Measures DVT/VTE Risk/Contraindication: Risk Factor Score Per Nursin RFS Level Per Nursing on Admit: 1=Low/No VTE PPX JAMIA RIGGINS DO May 07, 2018 14:36
[2018-05-07] MEDS: REGULAR inSUlin DRIP 250 UNITS/NS 250 ML IV SCH ×2 (18:25)
== END 2018-05-07 21:30 | disposition home or self-care (01) | DRG 639 ==
LOC: EDUNIT# 00:01 → ER 00:03 → ICU 04:00
PROVIDERS: ADMIT Internal Medicine; ATTEND Internal Medicine
DX: E10.10 Type 1 diabetes mellitus with ketoacidosis without coma (principal); K21.9 Gastro-esophageal reflux disease without esophagitis; B18.2 Chronic viral hepatitis C; E87.6 Hypokalemia; F17.210 Nicotine dependence, cigarettes, uncomplicated; F12.90 Cannabis use, unspecified, uncomplicated
CPT/HCPCS: 36415; 80048; 80053; 80306; 81000; 82962; 83605; 83690; 83735; 84100; 85025; 87081; 96361; 96374; 96375

== ENCOUNTER 2018-06-16 08:51 | Inpatient (IN) | payer OTHER ==
[~2018-06-16] VITALS: Ht 195.6 cm; Wt 69.9 kg
[2018-06-16] VITALS (14 sets, daily range): BP systolic 106–130; BP diastolic 66–96
[~2018-06-16 08:51] MED LIST changes: +INSU100V SQ
[2018-06-16] MEDS ORDERED: NS IV 1000 ML 1,000 ML IV ONE (09:14)
[2018-06-16] MEDS ORDERED: ONDANSETRON 4 MG/2 ML (SDV) Z0FRAN IVP ONE (09:15)
[2018-06-16 09:19] LABS: BASOPHILS % (AUTO) 0 % (0-10); EOSINOPHILS % (AUTO) 0 % (0-10); HEMATOCRIT 50 % (40-54); HEMOGLOBIN 16.9 G/DL (13.3-17.7); LYMPHOCYTES # (AUTO) 1.7 X 10^3 (1.0-4.0); LYMPHOCYTES % (AUTO) 9 % (12-44); MEAN CORPUSCULAR HEMOGLOBIN 35 PG (25-34); MEAN CORPUSCULAR HGB CONC 34 G/DL (32-36); MEAN CORPUSCULAR VOLUME 103 FL (80-99); MEAN PLATELET VOLUME 9.4 FL (7.4-10.4); MONOCYTES # (AUTO) 0.9 X 10^3 (0.0-1.0); MONOCYTES % (AUTO) 5 % (0-12); NEUTROPHILS # (AUTO) 16.2 X 10^3 (1.8-7.8); NEUTROPHILS % (AUTO) 86 % (42-75); PLATELET COUNT 491 10^3/uL (130-400); RED BLOOD COUNT 4.82 10^6/uL (4.35-5.85); RED CELL DISTRIBUTION WIDTH 14.7 % (10.0-14.5); WHITE BLOOD COUNT 18.8 10^3/uL (4.3-11.0)
[2018-06-16 09:39] LABS: ALANINE AMINOTRANSFERASE 598 U/L (0-55); ALBUMIN 5.5 GM/DL (3.2-4.5); ALKALINE PHOSPHATASE 227 U/L (40-136); BILIRUBIN,TOTAL 0.8 MG/DL (0.1-1.0); BUN/CREATININE RATIO 13; CALCIUM 10.2 MG/DL (8.5-10.1); CHLORIDE 97 MMOL/L (98-107); CREATININE SERUM 2.05 MG/DL (0.60-1.30); GFR ESTIMATED 41; GLUCOSE 295 MG/DL (70-105); POTASSIUM 4.2 MMOL/L (3.6-5.0); SODIUM 142 MMOL/L (135-145); TOTAL PROTEIN 9.1 GM/DL (6.4-8.2)
[2018-06-16 09:41] LABS: CARBON DIOXIDE 8 MMOL/L (21-32)
--- OUTSIDE RECORDS SUMMARY | 2018-06-16 09:48 | XMS REPORT ---
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 Role Phone THOMAS BARNES Unavailable PROBLEMS Type Condition ICD9-CM Code [id number] Code Onset Dates Condition Status SNOMED Code Problem Controlled type 1 diabetes mellitus without complication, with long- term current use of insulin E10.9 Active [id number] ALLERGIES No Information ENCOUNTERS Encounter Location Date Diagnosis [facility] [address] [address] May, [place] [address] [address] May, [facility] [address] [address] May, [facility] [address] [address] Apr, Controlled type 1 diabetes mellitus without complication, with long-term current use of insulin E10.9 and Encounter for immunization Z23 [facility] [address] [address] Mar, [facility] [address] [address] Jan, Controlled type 1 diabetes mellitus without complication, with long-term current use of insulin E10.9 and Muscle cramps R25.2 [place] [address] [address] Jan, [facility] [address] [address] Dec, [facility] [address], [place] [id number] Jan, [facility] [address] [address] November, Bronchitis J40 [facility] [address] [place] [id number] [place] [address] Jan, [facility] [address] [place] [id number] [place] [address] Dec, [facility] [address] [place] [id number] [place] [address] Dec, [facility] [address] [place] [id number] [place] [address] Dec, Controlled type 1 diabetes mellitus without complication, with long-term current use of insulin E10.9 [facility] [address] [place] [id number] [place] [address] Dec, [facility] [address] [place] [id number] [place] [address] Dec, [facility] [address] [place] [id number] [place] [address] Dec, [facility] [address] [place] [id number] [place] [address] November, [facility] [address] [place] [id number] [place] [id number] Oct, Encounter for immunization Z23 [facility] [address] [place] [id number] [place] [id number] Sep, Encounter for immunization Z23 [facility] [address] [place] [id number] [place] [address] Aug, Abdominal pain R10.9 [facility] [address] [place] [id number] [place] [id number] Aug, Diabetes mellitus without mention of complication, type I [ juvenile type], not stated as uncontrolled 250.01 [facility] [address] [place] [id number] [place] [address] Apr, Insect bite of arm, right, infected S40.861A [facility] [address] [place] [id number] [place] [address] Mar, Spider bite 989.5 [facility] [address] [place] [id number] [place] [address] Feb, [facility] [address] [place] [id number] [place] [address] Feb, Diabetes mellitus without mention of complication, type I [ juvenile type], not stated as uncontrolled 250.01 [facility] [address] [address] Feb, [facility] [address] [place] [id number] [place] [address] Oct, [facility] [address] [place] [id number] [place] [address] Oct, [facility] [address] [place] [id number] [place] [address] Apr, [facility] [address] [place] [id number] [place] [address] Apr, [facility] [address] [place] [id number] [place] [address] Mar, [facility] [address] [place] [id number] [place] [address] Mar, [facility] [address] [place] [id number] [place] [address] Mar, [facility] [address] [place] [id number] [place] [address] [id number] Jan, [facility] [address] [place] [id number] [place] [address] [phone] Dec, [facility] [address] [place] [id number] [place] [address] Dec, [facility] [address] [id number] [place] [address] 23 Sep, 2011 [facility] [place] [facility] [address] [id number] [place] [address] 14 Sep, 2011 [facility] [place] [facility] [address] [facility] [id number] [place] [address] 22 Aug, 2011 [facility] [place] [facility] [address] [id number] [place] [address] Aug, [facility] [place] [facility] [address] [id number] [place] [address] 18 Jul, 2011 [facility] [place] [facility] [address] [facility] [id number] [place] [address] Jul, [facility] [address] [facility] [id number] [place] [address] 16 Jun, 2011 [facility] [place] [facility] [address] [id number] [place] [address] 12 Jun, 2011 [facility] [place] [facility] [address] [facility] [id number] [place] [address] 2011 [facility] [place] [facility] [address] [facility] [id number] [place] [address] 14 May, 2011 [facility] [place] [facility] [address] [facility] [id number] [address] 14 May, 2011 [facility] [place] [facility] [address] [facility] [id number] [address] 07 May, 2011 [facility] [place] [facility] [address] [id number] [place] [address] 13 Apr, 2011 [facility] [place] [facility] [address] [facility] [id number] [place] [address] 13 Apr, 2011 [facility] [place] [facility] [address] [facility] [id number] [place] [address] 18 Sep, 2010 [facility] [place] [facility] [address] [facility] [id number] [place] [address] Sep, [facility] [address] [facility] [id number] [address] Jun, IMMUNIZATIONS No Known Immunizations SOCIAL HISTORY Never Assessed REASON FOR VISIT DM mgnt PLAN OF CARE VITAL SIGNS MEDICATIONS Unknown Medications RESULTS No Results PROCEDURES No Known procedures INSTRUCTIONS MEDICATIONS ADMINISTERED No Known Medications MEDICAL (GENERAL) HISTORY Type Description Date Medical History type I diabetes Medical History Hx of DKA Surgical History dental caps 2000 Surgical History urethral stretch Hospitalization History December 2014 @ [facility] for diabetes Hospitalization History mult times as for breathing problems Hospitalization History [facility] diabetes dx 08/30/2011 Hospitalization History DKA with resultant dehydration noncompliance--[facility] 12/26/15 Hospitalization History DKA-[facility] [place] [facility] 01/06/17 Hospitalization History DKA-[facility] [place] [facility] 12/2017
[2018-06-16 10:12] LABS: ANISOCYTOSIS SLIGHT; BAND NEUTROPHILS 0 %; BASOPHILS % (MANUAL) 0 %; EOSINOPHILS % (MANUAL) 0 %; LYMPHOCYTES % (MANUAL) 10 %; MONOCYTES % (MANUAL) 1 %; NEUTROPHILS % (MANUAL) 89 %
[2018-06-16] MEDS ORDERED: inSUlin REGULAR TPN/DRIP ONLY 250 UNITS in NORMAL SALINE 250 ML IV SCH ×2 (10:45→12:00)
[2018-06-16] MEDS ORDERED: NS IV 1000 ML 1,000 ML IV SCH (10:45)
--- NOTE | 2018-06-16 10:52 | ED General ---
General Chief Complaint: Glucose Problems Stated Complaint: DKA Nursing Triage Note: pt presents to er withcomplaint of possible dka. states he has been vomiting and feeling bad for the last 3 days. states he is a type 1 diabetic and states he feels he is dka. states the lower sugar he has had over the weekend has been 300. blood sugar on arrival is 297. Nursing Sepsis Screen: No Definite Risk Source of Information: Patient Exam Limitations: No Limitations History of Present Illness Date Seen by Provider: Jun 16, 2018 Time Seen by Provider: 10:50 Initial Comments To ER with reports of possible DKA. He's been vomiting and nauseous for the past 3 days. He is type I diabetic. He states that his last dose of insulin was 20 units of Humalog this morning. Timing/Duration: 2-3 Days Severity: Moderate Allergies and Home Medications Allergies Coded Allergies: No Known Drug Allergies (Unverified , 03/30/11) Home Medications Insulin Determir 1,000 Units/10 Ml Soln, 30 UNIT SQ DAILY Patient's home med Prescribed by: JAMIA RIGGINS on 05/07/18 1429 Insulin Lispro 100 Unit/1 Ml Vial, 0 SQ AC 1 unit for every 10g of carbs Prescribed by: JAMIA RIGGINS on 05/07/18 1429 Patient Home Medication List Home Medication List Reviewed: Yes Review of Systems Review of Systems Constitutional: see HPI, malaise, weakness EENTM: see HPI Respiratory: no symptoms reported Cardiovascular: no symptoms reported Gastrointestinal: nausea, vomiting Genitourinary: no symptoms reported Musculoskeletal: no symptoms reported Skin: no symptoms reported Psychiatric/Neurological: No Symptoms Reported Past Iucwotg-Vhphkd-Tvlsoe Hx Patient Social History Alcohol Use: Denies Use Recreational Drug Use: No Drug of Choice: pot Smoking Status: Current Everyday Smoker Type Used: Cigarettes 2nd Hand Smoke Exposure: Yes Recent Foreign Travel: No Contact w/Someone Who Travel: No Recent Infectious Disease Expo: No Recent Hopitalizations: No Immunizations Up To Date Tetanus Booster (TDap): Unknown PED Vaccines UTD: No Date of Pneumonia Vaccine: Jan 06, 2015 Seasonal Allergies Seasonal Allergies: Yes Past Medical History Surgeries: Yes (urethral stretch) Respiratory: No Currently Using CPAP: No Currently Using BIPAP: No Cardiac: No Neurological: No Reproductive Disorders: No Sexually Transmitted Disease: No HIV/AIDS: No Genitourinary: No Gastrointestinal: Yes Gastroesophageal Reflux Musculoskeletal: No Endocrine: Yes (Type I diabetes) Diabetes, Insulin dep HEENT: No Cancer: No Did You Recieve Any Treatments: No Psychosocial: Yes Anxiety, Depression Integumentary: No Blood Disorders: No Adverse Reaction/Blood Tranf: No Family Medical History Patient reports no known family medical history. No Pertinent Family Hx Physical Exam Vital Signs Vital Signs - First Documented 06/16/18 08:58 Temp 97.2 Pulse 135 Resp 22 B/P (MAP) 141/93 (109) Pulse Ox 100 O2 Delivery Room Air Capillary Refill : Less Than 3 Seconds Height, Weight, BMI Height: 6'5.00" Weight: 150lbs. 4.0oz. 68.535781fe; 17.9 BMI Method:Stated General Appearance: No Apparent Distress, WD/WN, Other (GCS 15 alert and oriented.) Eyes: Bilateral Eye Normal Inspection, Bilateral Eye PERRL, Bilateral Eye EOMI HEENT: PERRL/EOMI, TMs Normal, Other (very dry mucous membranes) Neck: Full Range of Motion, Normal Inspection Respiratory: Normal Breath Sounds, No Accessory Muscle Use, No Respiratory Distress Cardiovascular: Normal Peripheral Pulses, Tachycardia Gastrointestinal: Normal Bowel Sounds, Non Tender, Soft Extremity: Normal Capillary Refill, Normal Inspection Neurologic/Psychiatric: Alert, Oriented x3 Skin: Normal Color, Warm/Dry Progress/Results/Core Measures Suspected Sepsis Recent Fever Within 48 Hours: No Infection Criteria Present: None New/Unexplained Altered Menta: No Sepsis Screen: No Definite Risk SIRS Temperature:97.2 Pulse: 135 Respiratory Rate: 22 Laboratory Tests 06/16/18 09:10: White Blood Count 18.8H Blood Pressure 141 /93 Mean: 109 Laboratory Tests 06/16/18 09:10: Creatinine 2.05H, Platelet Count 491H, Total Bilirubin 0.8 Results/Orders Lab Results Laboratory Tests Test 06/16/18 09:05 06/16/18 09:10 Range/Units Glucometer 297 H 70-110 MG/DL White Blood Count 18.8 H 4.3-11.0 10^3/uL Red Blood Count 4.82 4.35-5.85 10^6/uL Hemoglobin 16.9 13.3-17.7 G/DL Hematocrit 50 40-54 % Mean Corpuscular Volume 103 H 80-99 FL Mean Corpuscular Hemoglobin 35 H 25-34 PG Mean Corpuscular Hemoglobin Concent 34 32-36 G/DL Red Cell Distribution Width 14.7 H 10.0-14.5 % Platelet Count 491 H 130-400 10^3/uL Mean Platelet Volume 9.4 7.4-10.4 FL Neutrophils (%) (Auto) 86 H 42-75 % Lymphocytes (%) (Auto) 9 L 12-44 % Monocytes (%) (Auto) 5 0-12 % Eosinophils (%) (Auto) 0 0-10 % Basophils (%) (Auto) 0 0-10 % Neutrophils # (Auto) 16.2 H 1.8-7.8 X 10^3 Lymphocytes # (Auto) 1.7 1.0-4.0 X 10^3 Monocytes # (Auto) 0.9 0.0-1.0 X 10^3 Eosinophils # (Auto) 0.0 0.0-0.3 10^3/uL Basophils # (Auto) 0.0 0.0-0.1 10^3/uL Neutrophils % (Manual) 89 % Lymphocytes % (Manual) 10 % Monocytes % (Manual) 1 % Eosinophils % (Manual) 0 % Basophils % (Manual) 0 % Band Neutrophils 0 % Anisocytosis SLIGHT Macrocytosis SLIGHT Sodium Level 142 135-145 MMOL/L Potassium Level 4.2 3.6-5.0 MMOL/L Chloride Level 97 L 98-107 MMOL/L Carbon Dioxide Level 8 *L 21-32 MMOL/L Anion Gap 37 H 5-14 MMOL/L Blood Urea Nitrogen 27 H 7-18 MG/DL Creatinine 2.05 H 0.60-1.30 MG/DL Estimat Glomerular Filtration Rate 41 BUN/Creatinine Ratio 13 Glucose Level 295 H 70-105 MG/DL Calcium Level 10.2 H 8.5-10.1 MG/DL Corrected Calcium 8.5-10.1 MG/DL Total Bilirubin 0.8 0.1-1.0 MG/DL Aspartate Amino Transf (AST/SGOT) 501 H 5-34 U/L Alanine Aminotransferase (ALT/SGPT) 598 H 0-55 U/L Alkaline Phosphatase 227 H 40-136 U/L Total Protein 9.1 H 6.4-8.2 GM/DL Albumin 5.5 H 3.2-4.5 GM/DL Lipase 15 8-78 U/L ADRIENNE Vitale DOUBLE CUT SAWYER Ns Iv 1000 Ml (Sodium Chloride 0.9%) (06/16/18 10:45) Insulin Regular Tpn/Drip Only (Humulin R (06/16/18 10:45) Insulin (Regular) Human (Humulin R (Per (06/16/18 11:00) Medications Given in ED Current Medications Medications Dose Ordered Sig/Bhavin Route Start Time Stop Time Status Last Admin Dose Admin Ondansetron HCl 8 mg ONCE ONCE IVP 06/16/18 09:15 06/16/18 09:16 DC 06/16/18 09:20 8 MG Sodium Chloride 1,000 ml @ 0 mls/hr Q0M ONCE IV 06/16/18 09:14 06/16/18 09:15 DC 06/16/18 09:20 1,000 MLS/HR Vital Signs/I&O 06/16/18 08:58 Temp 97.2 Pulse 135 Resp 22 B/P (MAP) 141/93 (109) Pulse Ox 100 O2 Delivery Room Air Capillary Refill : Less Than 3 Seconds Blood Pressure Mean: 109 Departure Communication (Admissions) Time/Spoke to Admitting Phy: 10:52 Discussed the case with Dr. Palomo. We will admit. Impression Primary Impression: DKA (diabetic ketoacidoses) Qualified Codes: E10.10 - Type 1 diabetes mellitus with ketoacidosis without coma Disposition: ADMITTED INPATIENT Condition: Stable Admissions Decision to Admit Reason: Admit from ER (General) Decision to Admit/Date: Jun 16, 2018 Time/Decision to Admit Time: 10:52 Departure-Patient Inst. Referrals: [facility] (PCP[facility]Family) Primary Care Physician ADRIENNE SIMMONS APRN Jun 16, 2018 10:52
[2018-06-16] MEDS ORDERED: inSUlin (REGULAR) HUMAN 1 UNIT/0.01 ML (CHARGE PER UNIT) IV SCH (11:00)
[2018-06-16] MEDS: D5 1/2 NS 1000 ML IV SOLUTION 1,000 ML IV SCH ×3 (12:09→22:33)
[2018-06-16] MEDS: 1/2 NS IV SOLUTION 1,000 ML IV SCH ×3 (12:14→21:11)
--- NOTE | 2018-06-16 12:30 | History & Physicial ([facility]) ---
CHAD FERREIRA MEDICAL STUDENT 06/16/18 1230: HPI History of Present Illness: 23 year old male with Hx of DM type 1 was admitted from the ED for DKA. Pt states he has had nausea and vomiting for the last 3 days and has been unable to keep any food down. Pt states he has had increased thirst and been drinking increased amounts of water and diet sprite but has had decreased urine output. Pt states he tried taking increased amounts of insulin which did not help with his symptoms. Pt states he normally takes Levemir at night which he has been out of for the last couple weeks. Pt denies any fever or chills prior to 3 days ago. Pt denies any abdominal pain prior to his episodes of vomiting. Denies diarrhea or constipation. Pt states he was never told about having Hep C before seeing it on his last discharge instructions. Pt denies any IV drug use. Pt was previously admitted for DKA on 05/06/18. Source: patient Exam Limitations: no limitations Date seen by provider: Jun 16, 2018 Time Seen by Provider: 11:30 Attending Physician Amador Song MD PCP Center/[facility] Consult Date of Admission Jun 16, 2018 at 10:43 Home Medications Home Medications Reviewed patient Home Medication Reconciliation performed by pharmacy medication reconciliations poultry service technician and/or nursing. Patients Allergies have been reviewed. Allergies Coded Allergies: No Known Drug Allergies (Unverified , 03/30/11) QUO-Lqavlb-Furcxi Hx Patient Social History Alcohol Use: Denies Use Recreational Drug Use: No Drug of Choice: pot Smoking Status: Current Everyday Smoker Type Used: Cigarettes 2nd Hand Smoke Exposure: Yes Recent Foreign Travel: No Contact w/other who traveled: No Recent Hopitalizations: No Recent Infectious Disease Expo: No Physical Abuse Screen: No Sexual Abuse: No Immunizations Up To Date Tetanus Booster (TDap): Unknown Date of Pneumonia Vaccine: Jan 06, 2015 Date of Influenza Vaccine: Apr 07, 2018 Past Medical History Past medical history 1. Diabetes mellitus type I 2. Depression Family Medical History Significant Family History: No Pertinent Family Hx Family History: Patient reports no known family medical history. Review of Systems ([facility]) Constitutional: no symptoms reported Respiratory: No cough Cardiovascular: no symptoms reported; No chest pain, No edema Gastrointestinal: see HPI Genitourinary: decreased output Musculoskeletal: no symptoms reported Skin: no symptoms reported Psychiatric/Neurological: No Symptoms Reported Reviewed Test Results Reviewed Test Results Lab Laboratory Tests Test 06/16/18 09:05 06/16/18 09:10 06/16/18 11:26 Range/Units Glucometer 297 H 100 70-110 MG/DL White Blood Count 18.8 H 4.3-11.0 10^3/uL Red Blood Count 4.82 4.35-5.85 10^6/uL Hemoglobin 16.9 13.3-17.7 G/DL Hematocrit 50 40-54 % Mean Corpuscular Volume 103 H 80-99 FL Mean Corpuscular Hemoglobin 35 H 25-34 PG Mean Corpuscular Hemoglobin Concent 34 32-36 G/DL Red Cell Distribution Width 14.7 H 10.0-14.5 % Platelet Count 491 H 130-400 10^3/uL Mean Platelet Volume 9.4 7.4-10.4 FL Neutrophils (%) (Auto) 86 H 42-75 % Lymphocytes (%) (Auto) 9 L 12-44 % Monocytes (%) (Auto) 5 0-12 % Eosinophils (%) (Auto) 0 0-10 % Basophils (%) (Auto) 0 0-10 % Neutrophils # (Auto) 16.2 H 1.8-7.8 X 10^3 Lymphocytes # (Auto) 1.7 1.0-4.0 X 10^3 Monocytes # (Auto) 0.9 0.0-1.0 X 10^3 Eosinophils # (Auto) 0.0 0.0-0.3 10^3/uL Basophils # (Auto) 0.0 0.0-0.1 10^3/uL Neutrophils % (Manual) 89 % Lymphocytes % (Manual) 10 % Monocytes % (Manual) 1 % Eosinophils % (Manual) 0 % Basophils % (Manual) 0 % Band Neutrophils 0 % Anisocytosis SLIGHT Macrocytosis SLIGHT Sodium Level 142 135-145 MMOL/L Potassium Level 4.2 3.6-5.0 MMOL/L Chloride Level 97 L 98-107 MMOL/L Carbon Dioxide Level 8 *L 21-32 MMOL/L Anion Gap 37 H 5-14 MMOL/L Blood Urea Nitrogen 27 H 7-18 MG/DL Creatinine 2.05 H 0.60-1.30 MG/DL Estimat Glomerular Filtration Rate 41 BUN/Creatinine Ratio 13 Glucose Level 295 H 70-105 MG/DL Calcium Level 10.2 H 8.5-10.1 MG/DL Corrected Calcium 8.5-10.1 MG/DL Total Bilirubin 0.8 0.1-1.0 MG/DL Aspartate Amino Transf (AST/SGOT) 501 H 5-34 U/L Alanine Aminotransferase (ALT/SGPT) 598 H 0-55 U/L Alkaline Phosphatase 227 H 40-136 U/L Total Protein 9.1 H 6.4-8.2 GM/DL Albumin 5.5 H 3.2-4.5 GM/DL Lipase 15 8-78 U/L Physical Exam-([facility]) Physical Exam Vital Signs VS - Last 72 Hours, by Label 06/16/18 06/16/18 06/16/18 08:58 11:10 11:30 Temp 97.2 Pulse 135 110 110 Resp 22 12 13 B/P (MAP) 141/93 (109) 132/93 (106) 126/85 (99) Pulse Ox 100 98 100 O2 Delivery Room Air Room Air Room Air Capillary Refill : Less Than 3 Seconds General Appearance: WD/WN, no apparent distress Eyes: Bilateral Eye EOMI Neck: non-tender, full range of motion, normal inspection Respiratory: chest non-tender, lungs clear, normal breath sounds Cardiovascular: regular rate, rhythm, no edema Gastrointestinal: normal bowel sounds, non tender, soft Extremities: normal inspection, no pedal edema Neurologic/Psychiatric: alert, normal mood/affect, oriented x 3 Assessment/Plan Assessment/Plan Admission Status: Inpatient Order (span 2 midnights) Reason for Inpatient Admission: DKA Assessment & Plan DKA 06/16/18 - pt started on IVF in ED. Will follow proticol. Pt's blood sugar was 100 upon arrival to ICU. Will start pt on D5W and insulin correct acidosis and fluids as well as potassium. SHAQ 06/16/18 - suspected to be secondary to dehydration from DKA, will give IV fluids Elevated LFT's 06/16/18 - suspected to be secondary to his Hep C Clinical Quality Measures DVT/VTE Risk/Contraindication: Risk Factor Score Per Nursin RFS Level Per Nursing on Admit: 1=Low/No VTE PPX Copy Copies To 1: [facility], CALLI Tovar HOLLY R MD 06/16/18 2212: HPI History of Present Illness: Reviewed above HPI with patient. States that he has ran out of his long acting insulin and been taking short acting inconsistently Home Medications Allergies Coded Allergies: No Known Drug Allergies (Unverified , 03/30/11) EFD-Cnasdk-Hezrus Hx Past Medical History Type I DM: Non compliant Family Medical History Family History: Patient reports no known family medical history. Review of Systems ([facility]) Constitutional: No chills, No fever; weakness EENTM: no symptoms reported; No nose congestion, No nose pain, No throat pain Respiratory: no symptoms reported Cardiovascular: no symptoms reported Gastrointestinal: loss of appetite, nausea, vomiting Genitourinary: decreased output Musculoskeletal: no symptoms reported Skin: no symptoms reported Psychiatric/Neurological: No Symptoms Reported Physical Exam-([facility]) Physical Exam General Appearance: WD/WN, no apparent distress Neck: non-tender, full range of motion Respiratory: chest non-tender, lungs clear, normal breath sounds Cardiovascular: regular rate, rhythm, no edema, no murmur Gastrointestinal: normal bowel sounds, non tender, soft Back: no CVA tenderness, no vertebral tenderness Extremities: normal inspection, no pedal edema, no calf tenderness, normal capillary refill Neurologic/Psychiatric: charge entry clerk II-XII nml as tested, no motor/sensory deficits, alert, normal mood/affect, oriented x 3 Skin: normal color, warm/dry Lymphatic: no adenopathy Assessment/Plan Assessment/Plan Reason for Inpatient Admission: requiring insulin drip and ICU care with q 4 hr labs and vitals Assessment & Plan Patient seen and evaluated with Stephen Ferreira MS3, see problem list (1) DKA (diabetic ketoacidoses) Status: Acute Assessment & Plan: - Insulin drip protocol, will start subcutaneous insulin when acidosis resolved, A1c pending Qualifiers: Qualified Codes: E10.10 - Type 1 diabetes mellitus with ketoacidosis without coma (2) SHAQ (acute kidney injury) Status: Acute Assessment & Plan: - Likely 2/2 dehydration due to hyperglycemia and acidosis with poor PO intake (3) Elevated LFTs Status: Acute Assessment & Plan: - Will continue to monitor, may need outpatient US (4) Nausea and vomiting Status: Acute Assessment & Plan: - Zofran PRN, advance diet as tolerated Qualifiers: Qualified Codes: R11.2 - Nausea with vomiting, unspecified (5) Hepatitis C Status: Chronic Qualifiers: Qualified Codes: B18.2 - Chronic viral hepatitis C (6) DVT prophylaxis Status: Acute Assessment & Plan: - SCDs and CHAD OLIVARES MEDICAL STUDENT Jun 16, 2018 12:30 AMADOR SONG MD Jun 16, 2018 22:12
[2018-06-16] MEDS ORDERED: ONDANSETRON 4 MG/2 ML (SDV) Z0FRAN IV PRN (13:00)
[2018-06-16] MEDS ORDERED: INSU100V SQ (13:24)
[2018-06-16] MEDS ORDERED: INSU100V5 SQ (13:24)
[2018-06-16 15:13] LABS: BILIRUBIN,URINE NEGATIVE (NEGATIVE); CLARITY,URINE CLEAR; COLOR,URINE YELLOW; GLUCOSE, URINE (UA) 3+ (NEGATIVE); KETONES,URINE 4+ (NEGATIVE); LEUKOCYTE ESTERASE ,URINE NEGATIVE (NEGATIVE); NITRITE,URINE NEGATIVE (NEGATIVE); PH,URINE 5 (5-9); PROTEIN,URINE 2+ (NEGATIVE); UROBILINOGEN,URINE NORMAL (NORMAL)
[2018-06-16 15:31] LABS: BACTERIA,URINE NEGATIVE /HPF; SQUAMOUS EPITHELIAL CELL,UR RARE /HPF
[2018-06-16 15:32] LABS: AMORPHOUS SEDIMENT,UR MOD AMOR URATES /LPF
[2018-06-16 16:07] LABS: BUN/CREATININE RATIO 14; CARBON DIOXIDE 16 MMOL/L (21-32); CHLORIDE 102 MMOL/L (98-107); CREATININE SERUM 1.39 MG/DL (0.60-1.30); GFR ESTIMATED > 60; GLUCOSE 149 MG/DL (70-105); SODIUM 136 MMOL/L (135-145)
[2018-06-16 17:46] LABS: BUN/CREATININE RATIO 13; CALCIUM 9.1 MG/DL (8.5-10.1); CARBON DIOXIDE 16 MMOL/L (21-32); CHLORIDE 102 MMOL/L (98-107); CREATININE SERUM 1.41 MG/DL (0.60-1.30); GFR ESTIMATED > 60; GLUCOSE 112 MG/DL (70-105); POTASSIUM 3.8 MMOL/L (3.6-5.0); SODIUM 136 MMOL/L (135-145)
[2018-06-16 20:18] LABS: BUN/CREATININE RATIO 13; CALCIUM 8.8 MG/DL (8.5-10.1); CARBON DIOXIDE 16 MMOL/L (21-32); CHLORIDE 101 MMOL/L (98-107); CREATININE SERUM 1.42 MG/DL (0.60-1.30); GFR ESTIMATED > 60; GLUCOSE 208 MG/DL (70-105); POTASSIUM 3.6 MMOL/L (3.6-5.0); SODIUM 135 MMOL/L (135-145)
[2018-06-16] MEDS: POTASSIUM CL 10MEQ/50ML IVPB 50 ML IV SCH ×2 (20:21→22:03)
[2018-06-17] VITALS (15 sets, daily range): BP systolic 117–136; BP diastolic 62–82
[2018-06-17] MEDS: POTASSIUM CL 10MEQ/50ML IVPB 50 ML IV SCH ×7 (00:05→09:02)
[2018-06-17 00:55] LABS: BUN/CREATININE RATIO 15; CALCIUM 9.1 MG/DL (8.5-10.1); CARBON DIOXIDE 17 MMOL/L (21-32); CHLORIDE 103 MMOL/L (98-107); CREATININE SERUM 1.24 MG/DL (0.60-1.30); GFR ESTIMATED > 60; GLUCOSE 131 MG/DL (70-105); POTASSIUM 3.5 MMOL/L (3.6-5.0); SODIUM 134 MMOL/L (135-145)
[2018-06-17] MEDS: D5 1/2 NS 1000 ML IV SOLUTION 1,000 ML IV SCH ×2 (02:33→06:42)
[2018-06-17] MEDS: 1/2 NS IV SOLUTION 1,000 ML IV SCH ×3 (02:33→07:44)
[2018-06-17 04:28] LABS: BASOPHILS % (AUTO) 0 % (0-10); EOSINOPHILS # (AUTO) 0.1 10^3/uL (0.0-0.3); EOSINOPHILS % (AUTO) 0 % (0-10); HEMATOCRIT 33 % (40-54); HEMOGLOBIN 11.1 G/DL (13.3-17.7); LYMPHOCYTES # (AUTO) 2.1 X 10^3 (1.0-4.0); LYMPHOCYTES % (AUTO) 19 % (12-44); MEAN CORPUSCULAR HEMOGLOBIN 35 PG (25-34); MEAN CORPUSCULAR HGB CONC 34 G/DL (32-36); MEAN CORPUSCULAR VOLUME 102 FL (80-99); MEAN PLATELET VOLUME 9.1 FL (7.4-10.4); MONOCYTES # (AUTO) 1.4 X 10^3 (0.0-1.0); MONOCYTES % (AUTO) 13 % (0-12); NEUTROPHILS # (AUTO) 7.6 X 10^3 (1.8-7.8); NEUTROPHILS % (AUTO) 68 % (42-75); PLATELET COUNT 252 10^3/uL (130-400); RED BLOOD COUNT 3.19 10^6/uL (4.35-5.85); RED CELL DISTRIBUTION WIDTH 13.6 % (10.0-14.5); WHITE BLOOD COUNT 11.3 10^3/uL (4.3-11.0)
[2018-06-17 04:47] LABS: BUN/CREATININE RATIO 16; CARBON DIOXIDE 18 MMOL/L (21-32); CHLORIDE 104 MMOL/L (98-107); CREATININE SERUM 1.15 MG/DL (0.60-1.30); GFR ESTIMATED > 60; GLUCOSE 128 MG/DL (70-105); MAGNESIUM 1.8 MG/DL (1.8-2.4); PHOSPHORUS 2.6 MG/DL (2.3-4.7); POTASSIUM 3.7 MMOL/L (3.6-5.0); SODIUM 135 MMOL/L (135-145)
[2018-06-17] MEDS: MAGNESIUM 1 GM/100 ML IVPB 100 ML IV SCH ×2 (05:08→07:45)
[2018-06-17] MEDS: KCL 20 MEQ TAB (K-DUR) PO SCH ×2 (05:08→07:46)
--- NOTE | 2018-06-17 07:13 | Diagnostic Imaging Report ---
INDICATION: Dyspnea. TECHNIQUE: Single view chest 3:03 AM. CORRELATION STUDY: 12/25/2017 FINDINGS: The heart size, mediastinal configuration and pulmonary vascularity are within normal limits. The lungs are clear with no consolidating infiltrate. There is no significant effusion or pneumothorax. IMPRESSION: 1. Stable, negative appearing portable chest. Dictated by: Dictated on workstation # [id number]
[2018-06-17] MEDS ORDERED: inSUlin DETERMIR 1 UNIT/0.01 ML (LEVEMIR) CHARGE PER UNIT SQ NR (08:30)
--- NOTE | 2018-06-17 09:11 | Discharge Summary ---
CHAD FERREIRA MEDICAL STUDENT 06/17/18 0911: Diagnosis/Chief Complaint Date of Admission Jun 16, 2018 at 10:43 Date of Discharge / at 0915 Admission Diagnosis Admission Diagnosis DKA Discharge Diagnosis Problems/Diagnosis: (1) DKA (diabetic ketoacidoses) Assessment & Plan: - Insulin drip protocol, will start subcutaneous insulin when acidosis resolved, A1c pending Qualifiers: Qualified Codes: E10.10 - Type 1 diabetes mellitus with ketoacidosis without coma Status: Acute (2) SHAQ (acute kidney injury) Assessment & Plan: - Likely 2/2 dehydration due to hyperglycemia and acidosis with poor PO intake Status: Resolved Resolution Date/Time: 06/17/18 @ 20:39 (3) Elevated LFTs Assessment & Plan: - Will continue to monitor, may need outpatient US Status: Acute (4) Nausea and vomiting Assessment & Plan: - Zofran PRN, advance diet as tolerated Qualifiers: Qualified Codes: R11.2 - Nausea with vomiting, unspecified Status: Resolved (5) Hepatitis C Qualifiers: Qualified Codes: B18.2 - Chronic viral hepatitis C Status: Chronic (6) DVT prophylaxis Assessment & Plan: - SCDs and OOB Status: Acute Chief Complaint/HPI Chief Complaint/HPI Reviewed above HPI with patient. States that he has ran out of his long acting insulin and been taking short acting inconsistently Discharge Summary-Simple/Stand Consultations Discharge Physical Examination Allergies: Coded Allergies: No Known Drug Allergies (Unverified , 03/30/11) Vitals & I&Os Vital Sign - Last 12Hours Date Time Temp Pulse Resp B/P (MAP) Pulse Ox O2 Delivery O2 Flow Rate FiO2 06/17/18 07:42 98.4 Room Air 06/17/18 06:00 85 15 123/81 (95) 98 Intake and Output 06/17/18 00:00 Intake Total 5072 ml Output Total 1550 ml Balance 3522 ml Hospital Course See final discharge diagnosis. Discussion & Recommendations Pt was admitted from ED for DKA after having N/V for 3 days prior to being admitted to the hospital. Pt was started on IVF, Insulin and potassium. Pt's blood sugar has come down to the 150's and no longer has an anion gap metabolic acidosis. Pt able to tolerate PO foods. Discharge Instructions to patient/family Please see electronic discharge instructions given to patient. Discharge Medications Reviewed and agree with Discharge Medication list on patient's Discharge Instruction sheet Clinical Quality Measures DVT/VTE Risk/Contraindication: Risk Factor Score Per Nursin RFS Level Per Nursing on Admit: 1=Low/No VTE PPX Copy Copies To 1: Maritza TRIANA APRN GAULT, HOLLY R MD 06/18/18 2114: Diagnosis/Chief Complaint Date of Discharge 06/18/18 Discharge Diagnosis See Below Problems/Diagnosis: (1) DKA (diabetic ketoacidoses) Qualifiers: Qualified Codes: E10.10 - Type 1 diabetes mellitus with ketoacidosis without coma Status: Acute (2) Elevated LFTs Assessment & Plan: - Will continue to monitor, may need outpatient US 06/17- Repeat LFTs in AM, Acute hepatitis panel ordered, US ordered for AM Status: Acute (3) Nausea and vomiting Qualifiers: Qualified Codes: R11.2 - Nausea with vomiting, unspecified Status: Resolved (4) SHAQ (acute kidney injury) Status: Resolved Resolution Date/Time: 06/17/18 @ 20:39 Discharge Summary-Simple/Stand Discharge Physical Examination Allergies: Coded Allergies: No Known Drug Allergies (Unverified , 03/30/11) General Appearance: Alert, Oriented X3, Cooperative, No Acute Distress HEENT: Mucous Memb Moist/[place] Respiratory: Clear to Auscultation, Normal Air Movement Cardiovascular: Regular Rate, No Murmurs Abdominal: Normal Bowel Sounds, Soft, No Tenderness, No Hepatosplenomegaly, No Masses Extremities: No Edema, No Tenderness/Swelling Skin: No Rashes, No Breakdown Neuro: Normal Speech, Strength at 5/5 X4 Ext, Sensation Intact, Cranial Nerves 3-12 NL Psych/Mental Status: Mental Status NL, Mood NL Hospital Course Pending Labs Acute Hepatitis panel pending Discharge Condition at discharge stable CHAD FERREIRA MEDICAL STUDENT Jun 17, 2018 09:11 AMADOR SONG MD Jun 18, 2018 21:14
[2018-06-17 09:17] LABS: BUN/CREATININE RATIO 15; CALCIUM 8.8 MG/DL (8.5-10.1); CARBON DIOXIDE 18 MMOL/L (21-32); CHLORIDE 105 MMOL/L (98-107); CREATININE SERUM 1.05 MG/DL (0.60-1.30); GFR ESTIMATED > 60; GLUCOSE 167 MG/DL (70-105); POTASSIUM 3.6 MMOL/L (3.6-5.0); SODIUM 137 MMOL/L (135-145)
[2018-06-17] MEDS: inSUlin ASPART (NovoLOG) 1 UNIT/0.01 ML (CHARGE PER UNIT) SC SCH ×3 (11:02→20:28)
--- NOTE | 2018-06-17 20:40 | Progress Note (SOAP) ---
Subjective Subjective/Events-last exam Patient feeling better. No further N/V on DM diet. States that he is still having some abdominal pain. + BM last night. States that he knows nothing about Hep C. Reviewed hospital chart and no acute hepatitis panel has ever been done here. Review of Systems Date Seen by Provider: Jun 17, 2018 Time Seen by Provider: 07:15 General: No Chills; Fatigue Pulmonary: No Dyspnea Cardiovascular: No: Chest Pain, Palpitations Gastrointestinal: Abdominal Pain, Diarrhea; No: Nausea, Vomiting Genitourinary: No Dysuria; Frequency; No Incontinence Neurological: Weakness Objective Exam Last Set of Vital Signs Vital Signs Date Time Temp Pulse Resp B/P (MAP) Pulse Ox O2 Delivery O2 Flow Rate FiO2 06/17/18 16:00 98.7 95 16 117/70 (86) 95 Room Air Capillary Refill : Less Than 3 Seconds I&O Intake and Output 06/17/18 00:00 Intake Total 6072 ml Output Total 1550 ml Balance 4522 ml Intake Oral 2022 ml IV Total 4050 ml Output Urine Total 1550 ml Daily Weight Change No General: Alert, Oriented X3, Cooperative, No Acute Distress HEENT: Mucous Memb Moist/[place] Lungs: Clear to Auscultation, Normal Air Movement Heart: Regular Rate, No Murmurs Abdomen: Other (diffuse mild ttp to abdomen, non localizing) Extremities: No Edema, No Tenderness/Swelling Neuro: Normal Speech, Strength at 5/5 X4 Ext, Cranial Nerves 3-12 NL Psych/Mental Status: Mental Status NL, Mood NL Results/Procedures Lab Laboratory Tests 06/16/18 21:31: Glucometer 153H 06/16/18 22:30: Glucometer 136H 06/16/18 23:32: Glucometer 126H 06/17/18 00:29: Glucometer 134H 06/17/18 00:30: Sodium Level 134L, Potassium Level 3.5L, Chloride Level 103, Carbon Dioxide Level 17L, Anion Gap 14, Blood Urea Nitrogen 19H, Creatinine 1.24, Estimat Glomerular Filtration Rate > 60, BUN/Creatinine Ratio 15, Glucose Level 131H, Calcium Level 9.1 06/17/18 01:28: Glucometer 145H 06/17/18 02:30: Glucometer 123H 06/17/18 03:36: Glucometer 147H 06/17/18 04:01: White Blood Count 11.3H, Red Blood Count 3.19L, Hemoglobin 11.1#L, Hematocrit 33L, Mean Corpuscular Volume 102H, Mean Corpuscular Hemoglobin 35H, Mean Corpuscular Hemoglobin Concent 34, Red Cell Distribution Width 13.6, Platelet Count 252, Mean Platelet Volume 9.1, Neutrophils (%) (Auto) 68, Lymphocytes (%) (Auto) 19, Monocytes (%) (Auto) 13H, Eosinophils (%) (Auto) 0, Basophils (%) ( Auto) 0, Neutrophils # (Auto) 7.6, Lymphocytes # (Auto) 2.1, Monocytes # (Auto) 1.4H, Eosinophils # (Auto) 0.1, Basophils # (Auto) 0.0, Sodium Level 135, Potassium Level 3.7, Chloride Level 104, Carbon Dioxide Level 18L, Anion Gap 13 , Blood Urea Nitrogen 18, Creatinine 1.15, Estimat Glomerular Filtration Rate > 60, BUN/Creatinine Ratio 16, Glucose Level 128H, Calcium Level 9.0, Phosphorus Level 2.6, Magnesium Level 1.8 06/17/18 04:36: Glucometer 219H 06/17/18 05:27: Glucometer 213H 06/17/18 06:25: Glucometer 180H 06/17/18 07:39: Glucometer 144H 06/17/18 08:28: Glucometer 156H 06/17/18 08:44: Sodium Level 137, Potassium Level 3.6, Chloride Level 105, Carbon Dioxide Level 18L, Anion Gap 14, Blood Urea Nitrogen 16, Creatinine 1.05, Estimat Glomerular Filtration Rate > 60, BUN/Creatinine Ratio 15, Glucose Level 167H, Calcium Level 8.8 06/17/18 09:34: Glucometer 255H 06/17/18 10:30: Glucometer 272H 06/17/18 16:44: Glucometer 203H 06/17/18 20:23: Glucometer 224H Microbiology 06/16/18 MRSA Screen - Preliminary, Resulted MRSA not isolated Assessment/Plan Assessment/Plan Assessment & Plan Patient seen and evaluated with Stephen Cook MS3, see problem list (1) DKA (diabetic ketoacidoses) Status: Acute Assessment & Plan: - Insulin drip protocol, will start subcutaneous insulin when acidosis resolved, A1c pending 06/17- Transition to subcutaneous insulin this AM, Continue SSI A, A1c 9.5, acidosis resolved, will transfer out of ICU today Qualifiers: Qualified Codes: E10.10 - Type 1 diabetes mellitus with ketoacidosis without coma (2) SHAQ (acute kidney injury) Status: Resolved Assessment & Plan: - Likely 2/2 dehydration due to hyperglycemia and acidosis with poor PO intake (3) Elevated LFTs Status: Acute Assessment & Plan: - Will continue to monitor, may need outpatient US 06/17- Repeat LFTs in AM, Acute hepatitis panel ordered, US ordered for AM (4) Nausea and vomiting Status: Resolved Assessment & Plan: - Zofran PRN, advance diet as tolerated Qualifiers: Qualified Codes: R11.2 - Nausea with vomiting, unspecified (5) DVT prophylaxis Status: Acute Assessment & Plan: - SCDs and OOB Clinical Quality Measures DVT/VTE Risk/Contraindication: Risk Factor Score Per Nursin RFS Level Per Nursing on Admit: 1=Low/No VTE PPX AMADOR SONG MD Jun 17, 2018 20:40
[2018-06-17] MEDS ORDERED: inSUlin DETERMIR 1 UNIT/0.01 ML (LEVEMIR) CHARGE PER UNIT SQ SCH (21:00)
[2018-06-18] MEDS: inSUlin ASPART (NovoLOG) 1 UNIT/0.01 ML (CHARGE PER UNIT) SC SCH ×2 (05:23→11:45)
[2018-06-18 05:52] LABS: BASOPHILS % (AUTO) 0 % (0-10); EOSINOPHILS # (AUTO) 0.1 10^3/uL (0.0-0.3); EOSINOPHILS % (AUTO) 1 % (0-10); HEMATOCRIT 32 % (40-54); HEMOGLOBIN 10.9 G/DL (13.3-17.7); LYMPHOCYTES # (AUTO) 2.2 X 10^3 (1.0-4.0); LYMPHOCYTES % (AUTO) 33 % (12-44); MEAN CORPUSCULAR HEMOGLOBIN 35 PG (25-34); MEAN CORPUSCULAR HGB CONC 34 G/DL (32-36); MEAN CORPUSCULAR VOLUME 101 FL (80-99); MEAN PLATELET VOLUME 8.8 FL (7.4-10.4); MONOCYTES % (AUTO) 15 % (0-12); NEUTROPHILS # (AUTO) 3.4 X 10^3 (1.8-7.8); NEUTROPHILS % (AUTO) 51 % (42-75); PLATELET COUNT 206 10^3/uL (130-400); RED BLOOD COUNT 3.14 10^6/uL (4.35-5.85); RED CELL DISTRIBUTION WIDTH 13.4 % (10.0-14.5); WHITE BLOOD COUNT 6.7 10^3/uL (4.3-11.0)
[2018-06-18 06:34] LABS: ALANINE AMINOTRANSFERASE 232 U/L (0-55); ALBUMIN 3.5 GM/DL (3.2-4.5); ALKALINE PHOSPHATASE 123 U/L (40-136); BILIRUBIN,TOTAL 0.8 MG/DL (0.1-1.0); BUN/CREATININE RATIO 23; CALCIUM 8.5 MG/DL (8.5-10.1); CARBON DIOXIDE 23 MMOL/L (21-32); CHLORIDE 105 MMOL/L (98-107); CREATININE SERUM 0.71 MG/DL (0.60-1.30); GFR ESTIMATED > 60; GLUCOSE 71 MG/DL (70-105); POTASSIUM 3.3 MMOL/L (3.6-5.0); SODIUM 139 MMOL/L (135-145); TOTAL PROTEIN 5.5 GM/DL (6.4-8.2)
[2018-06-18 08:00] VITALS: BP 133/84
--- NOTE | 2018-06-18 12:15 | Diagnostic Imaging Report ---
PROCEDURE: US Hepatic (Liver). TECHNIQUE: Multiple real-time grayscale images were obtained over the right upper quadrant in various projections. INDICATION: Elevated liver function tests. FINDINGS: There are no prior hepatic ultrasound examinations available for comparison. The CT abdomen/pelvis exam of 12/17/2014 noted fatty infiltration of the liver but failed to show any sign of an acute abnormality of the liver. On this exam, the liver is enlarged measuring 20.5 cm in length. There is no focal mass involving the liver to suggest neoplasm and the biliary tree is not abnormally dilated. There is no increased echogenicity of the liver to indicate fatty metamorphosis either. Spectral and color-flow imaging of the portal vein shows that the vein is patent and that there is normal direction of flow within the vein. The gallbladder is contracted and consequently difficult to assess. There is no evidence for cholelithiasis or acute cholecystitis and the common bile duct is not dilated. The pancreas and the right kidney are unremarkable. IMPRESSION: 1. The liver is mildly enlarged, but there is no focal abnormality involving the liver. 2. The gallbladder is contracted and consequently difficult to assess. If further evaluation is desired, then a follow-up exam when the patient is in the fasting state (n.p.o. for 4-6 hours) would be recommended. Dictated by: Dictated on workstation # [id number]
[2018-06-18 13:00] VITALS: BP 133/77
--- NOTE | 2018-06-18 14:47 | Discharge Instructions ---
Discharge [facility] Discharge Medications New, Converted or Re-Newed RX: Other Continued Medications: Insulin Determir (Levemir) 1,000 Units/10 Ml Soln 30 UNITS SQ HS, EA LAST FILLED 01-26-18 Insulin Lispro (Humalog) 100 Unit/1 Ml Vial SQ AC, VIAL LAST FILLED 01-17-18 1 UNIT FOR EVERY 10 GRAMS OF CARBS Patient Instructions Goal/Follow Up Appt: Follow up with Dr Barnes on Jun 27 @ 120 Patient Instructions: - If you are unable to afford insulin it is ok to ask to have the medication charged or vouchered Activity & Diet Discharge Diet: ADA Diet Activity as Tolerated: Yes Copy Copies To 1: THOMAS BARNES MD, HOLLY R MD Jun 18, 2018 14:47
[2018-06-18 16:10] VITALS: BP 133/77
[2018-06-19 06:44] LABS: HEPATITIS C ANTIBODY C Non-Reactive (Non-Reactive)
== END 2018-06-18 16:10 | disposition home or self-care (01) | DRG 638 ==
LOC: EDUNIT# 08:51 → ER 08:53 → ICU 10:43 → 4TH 06-17 13:05
PROVIDERS: ADMIT Family Medicine; ATTEND Family Medicine
DX: E10.10 Type 1 diabetes mellitus with ketoacidosis without coma (principal); N17.9 Acute kidney failure, unspecified; E86.0 Dehydration; R11.2 Nausea with vomiting, unspecified; B18.2 Chronic viral hepatitis C; F17.210 Nicotine dependence, cigarettes, uncomplicated; F41.9 Anxiety disorder, unspecified; F32.9 Major depressive disorder, single episode, unspecified; K21.9 Gastro-esophageal reflux disease without esophagitis; J30.1 Allergic rhinitis due to pollen; Z79.4 Long term (current) use of insulin; Z91.14 Patient's other noncompliance with medication regimen
CPT/HCPCS: 36415; 71045; 76705; 80048; 80053; 80074; 81000; 82962; 83036; 83690; 83735; 84100; 85007; 85025; 85027; 87081; 96361; 96374